=== PATIENT | male | born 1945 | race Caucasian/White ===

== ENCOUNTER 2017-02-23 21:07 | Emergency (ER) | payer OTHER, MEDICAID ==
[~2017-02-23] VITALS: Ht 160 cm; Wt 89.8 kg
[2017-02-23 21:10] VITALS: BP 154/103
[2017-02-23] MEDS ORDERED: APIX5TAB PO (21:41)
[2017-02-23] MEDS ORDERED: PRON INH (21:41)
[2017-02-23] MEDS ORDERED: BEN50 PO (21:41)
[2017-02-23] MEDS ORDERED: IBUP-1842 PO (21:41)
[2017-02-23] MEDS ORDERED: LEVO0.124 PO (21:41)
[2017-02-23] MEDS ORDERED: [UNRECOGNIZED DRUG - CODE] PO ×2 (21:41→21:55)
[2017-02-23] MEDS ORDERED: MULT15LI1 GT (21:41)
[2017-02-23] MEDS ORDERED: DILT-135 PO (21:41)
[2017-02-23] MEDS ORDERED: ATRN INH (21:41)
[2017-02-23] MEDS ORDERED: [UNRECOGNIZED DRUG - CODE] PO (21:41)
[2017-02-23] MEDS ORDERED: PUL.5N INH (21:41)
--- NOTE | 2017-02-23 21:43 | NUR ---
PT TO ER BED 12 BY ARLETH
--- NOTE | 2017-02-23 21:54 | NUR ---
71Y M BIBA FROM [facility] C/O BILAT WHEEZING X 1 DAY. EMS STATES HE IS NORMALLY ON O2 AT FACILITY 2L NC. PT HAS COLOSTOMY. EMS DELIVERED 1 ROUND OF ALBUTEROL NEBULIZER AND 1 OF ATROVENT ENROUT. PT AAOX4. AMBULATES WITH WALKER AT FACILITY.
[2017-02-23] MEDS ORDERED: ALBU0.0912 IH (21:55)
[2017-02-23] MEDS ORDERED: [UNRECOGNIZED DRUG - CODE] PO (21:55)
--- NOTE | 2017-02-23 22:07 | NUR ---
O2 SAT ON ROOM AIR 91-94, PT HAS HX OF ASTHMA AND COPD, BREATHING IS EVEN AND UNLABORED.
[2017-02-23] MEDS ORDERED: cefTRIAXone 1,000 MG in LIDOCAINE 1% ***ER ONLY *** 2.1 ML IM ONE (22:50)
[2017-02-23] MEDS ORDERED: cefTRIAXone 1,000 MG VIAL ONE (23:16)
--- NOTE | 2017-02-23 23:34 | NUR ---
Patient discharged with v/s stable BY ER MD DR PAGE. Written and verbal after care instructions given and explained BY DR PAGE. Patient alert, oriented and verbalized understanding of instructions. WHEELCHAIR with by caregiver. All questions addressed prior to discharge BY DR PAGE. ID band removed. Patient advised to follow up with PMD. Rx of ALBUTEROL INHALER PHENERGAN DM AND AUGMENTIN 875MG given. Patient educated on indication of medication including possible reaction and side effects. Opportunity to ask questions provided and answered DR PAGE.
[2017-02-23 23:35] VITALS: BP 147/91
== END 2017-02-23 23:32 | disposition home or self-care (01) ==
LOC: MED 21:07
DX: J20.9 Acute bronchitis, unspecified (principal); E03.9 Hypothyroidism, unspecified; E78.00 Pure hypercholesterolemia, unspecified
CPT/HCPCS: 71045; 81002; 96372; 99283; J0696; Q0092

== ENCOUNTER 2017-03-10 18:33 | Inpatient (IN) | payer OTHER, MEDICAID ==
[~2017-03-10] VITALS: Ht 167.6 cm; Wt 66.2 kg
[~2017-03-10 18:33] MED LIST: ALBU0.0912 IH; APIX5TAB PO; ATRN INH; BEN50 PO; DILT-135 PO; IBUP-1842 PO; LEVO0.124 PO; MULT15LI1 GT; PRON INH; PUL.5N INH; [UNRECOGNIZED DRUG - CODE] PO; [UNRECOGNIZED DRUG - CODE] PO; [UNRECOGNIZED DRUG - CODE] PO
[2017-03-10 18:40] VITALS: BP 121/70
[2017-03-10] MEDS ORDERED: ALBUTEROL SULFATE/IPRATROPIU 3 ML SOL IH ONE ×3 (18:40→19:40)
--- NOTE | 2017-03-10 19:35 | NUR ---
PT TAKEN TO OVERFLOW WHEELCHAIR
--- NOTE | 2017-03-10 19:39 | NUR ---
Dr. Dolan evaluating patient
[2017-03-10] MEDS ORDERED: methylPREDNISolone SS 125 MG/2 ML VIAL IVP ONE (19:40)
--- NOTE | 2017-03-10 19:44 | NUR ---
LAB AT BEDSIDE
--- NOTE | 2017-03-10 20:01 | NUR ---
PT MOVED TO BED 3
[2017-03-10 20:04] LABS: HEMATOCRIT 37.3 % (36-52)
[2017-03-10 20:08] LABS: HEMOGLOBIN 12.4 g/dL (12.0-18.0); MEAN CORPUSCULAR HEMOGLOBIN 28 pg (27-31); MEAN CORPUSCULAR HGB CONC 33 g/dL (33-37); MEAN CORPUSCULAR VOLUME 86 fL (80-94); PLATELET COUNT (AUTO) 451 K/uL (140-450); RED BLOOD CELL COUNT(AUTO) 4.35 MIL/uL (4.20-6.10); RED CELL DISTRIBUTION WIDTH 15.1 % (11.6-13.7); WHITE BLOOD COUNT (AUTO) 3.1 K/uL (4.8-10.8)
[2017-03-10] MEDS ORDERED: methylPREDNISolone SS 125 MG/2 ML VIAL ONE (20:08)
--- NOTE | 2017-03-10 20:13 | NUR ---
71 Y/O M [facility]C/O SOB/RESP DISTRESS. AWAKE AND ALERT ON ARRIVAL.ER MD MADE AWARE.
[2017-03-10 20:18] LABS: ANION GAP 12.5 (8-16); CARBON DIOXIDE 29.4 mmol/L (21-32); CREATININE 0.9 mg/dL (0.7-1.3); POTASSIUM 3.9 mmol/L (3.5-5.1)
[2017-03-10 20:26] LABS: TOTAL BILIRUBIN 0.5 mg/dL (0.0-1.0)
[2017-03-10 20:27] LABS: PROTHROMBIN TIME 11.5 secs (10.8-13.4)
[2017-03-10 20:31] LABS: EOSINOPHILS % (MANUAL) 2 % (0-4); LYMPHOCYTES % (MANUAL) 26 % (20-46); METAMYELOCYTES % 1 % (0-0); MONOCYTES % (MANUAL) 19 % (5-12); PROMYELOCYTES % 1 % (0-0)
[2017-03-10 20:36] LABS: APPEARANCE,URINE HAZY (CLEAR); BILIRUBIN,URINE NEGATIVE (NEGATIVE); BLOOD, URINE TRACE-I (NEGATIVE); COLOR,URINE YELLOW (YELLOW); LEUKOCYTE ESTERASE ,URINE TRACE (NEGATIVE); NITRITE, URINE NEGATIVE (NEGATIVE); PH,URINE 5.5 (5.0-9.0); UGLUCOSE NEGATIVE (NEGATIVE)
[2017-03-10 20:46] LABS: RBC,URINE 0-5 (RARE) /HPF (0-5)
--- NOTE | 2017-03-10 20:59 | NUR ---
PT RESTING IN BED, TACHY, PT DENIES ANY PAIN. ER MD MADE AWARE.
--- NOTE | 2017-03-10 21:03 | NUR ---
PER ER PT OK TO HAVE FOOD. FOOD TRADE PROVIDE TO PT AT BEDSIDE.
[2017-03-10] MEDS ORDERED: DILTIAZEM 25 MG/5 ML VIAL IVP ONE ×4 (21:05→22:25)
[2017-03-10] MEDS ORDERED: NACL 0.9% 1,000 ML IV ONE (21:50)
[2017-03-10] MEDS ORDERED: DILTIAZEM 125 MG in DEXTROSE 5% 100 ML IV ONE (21:50)
[2017-03-10] MEDS ORDERED: DILTIAZEM 125 MG/25 ML VIAL IV ONE (22:00)
--- NOTE | 2017-03-10 22:19 | NUR ---
CARDIZEM 20MG IVP GIVEN-NADR. VS- BP 128/67, 126, 19, SAT 95% ON 2L N/C PT STABLE AT THIS TIME.
[2017-03-10] MEDS ORDERED: ACETAMINOPHEN 325 MG TAB PO PRN (23:15)
[2017-03-10] MEDS ORDERED: ONDANSETRON 4 MG/2 ML VIAL IVP PRN (23:15)
[2017-03-10] MEDS ORDERED: HYDROcodone/APAP 7.5/325 MG 1 TAB PO PRN (23:15)
[2017-03-10] MEDS ORDERED: LEVOFLOXACIN 750 MG/D5W PREMIX 150 ML IV SCH (23:20)
[2017-03-10] MEDS ORDERED: ALBUTEROL SULFATE/IPRATROPIU 3 ML SOL IH PRN (23:20)
--- NOTE | 2017-03-10 23:29 | NUR ---
PT TRANSFERED TO FLOOR VIA GURNEY, ACCOMPANIED BY RN AND EMT. NO S/S OF DISTRESS NOTED DURING TRANSFER.
--- NOTE | 2017-03-10 23:30 | NUR ---
Admitted from ED, with chief complaint of SHORTNESS OF DISTRESS, 71 y/o ,Male, Awake, Alert and Oriented, Cooperative. Initial assessment done. Pt's sacral/buttock picture taken. Vital signs checked. Plan of care discussed. Pt denies any pain. Pt oriented to call light, bed, phone,television, bathroom, smoking policy, visiting hours, procedures, ID bracelet on. Belongings list checked. Mrsa swab collected.
--- NOTE | 2017-03-10 23:35 | NUR ---
REPORT GIVEN TO KATHERIN EVANS AT BEDSIDE.
[2017-03-10 23:50] VITALS: BP 119/63
[2017-03-10] MEDS ORDERED: APIX5TAB PO (23:53)
[2017-03-10 23:56] LABS: CHOL/HDL RATIO 4.3 (1-4.5); FREE T4 (FREE THYROXINE) 1.26 ng/dL (0.76-1.46); MAGNESIUM 1.7 mg/dL (1.8-2.4); PHOSPHORUS 3.5 mg/dL (2.5-4.9); THYROID STIMULATING HORMONE 1.75 uIU/mL (0.34-3.74)
[2017-03-11] MEDS ORDERED: FURO-570 PO
[2017-03-11 00:33] LABS: BARBITURATE, URINE NEG. ng/ml (NEG <=200); BENZODIAZEPINE, URINE NEG. ng/mL (NEG <=200); CANNABINOID, URINE NEG. ng/mL (NEG <=50); COCAINE, URINE NEG. ng/mL (NEG <=300); OPIATE, URINE NEG. ng/mL (NEG <=2000); PHENCYCLIDINE SCREEN,URINE NEG. ng/mL (NEG <=25)
[2017-03-11] MEDS ORDERED: LEVOFLOXACIN 750 MG/D5W PREMIX 150 ML IV ONE ×2 (00:50→20:24)
[2017-03-11] MEDS ORDERED: CLINDAMYCIN 600 MG/4 ML VIAL ONE ×2 (00:56→04:17)
[2017-03-11] MEDS: NACL 0.9% 1,000 ML IV SCH ×2 (01:02→19:11)
[2017-03-11] MEDS: CLINDAMYCIN 600 MG in DEXTROSE 5% 50 ML IV SCH ×5 (01:03→23:42)
[2017-03-11] MEDS ORDERED: MAG SULF 2000 MG/WATER PREMIX 50 ML IV ONE ×2 (01:15→03:38)
--- NOTE | 2017-03-11 02:32 | NUR ---
SPOKE TO DR FARIAS REGARDING PT'S MG LEVEL. SHE SAID SHE'LL PUT AN ORDER FOR MG RIDER.
[2017-03-11] MEDS ORDERED: PNEUMOCOCCAL VACCINE 23 MCG/0.5 ML VIAL IMVAC SCH (02:45)
[2017-03-11 04:00] VITALS: BP 105/75
--- NOTE | 2017-03-11 04:30 | NUR ---
SEEN PT AWAKE. VITAL SIGNS CHECKED. PT DENIES ANY PAIN. URINAL EMPTIED. SAFETY ENSURED.
--- NOTE | 2017-03-11 05:45 | NUR ---
SPOKE TO DR FARIAS REGARDING ORDER TO COLLECT INFLUENZA A&B THAT NEEDS TO BE CHANGED.
[2017-03-11] MEDS ORDERED: methylPREDNISolone SS 125 MG/2 ML VIAL ONE ×3 (05:57→20:26)
[2017-03-11] MEDS: methylPREDNISolone SS 125 MG/2 ML VIAL IVP SCH ×3 (06:00→20:39)
[2017-03-11] MEDS ORDERED: LEVOTHYROXINE 0.075 MG TAB ONE (06:03)
[2017-03-11] MEDS: LEVOTHYROXINE 0.075 MG TAB PO SCH (06:13)
--- NOTE | 2017-03-11 06:20 | NUR ---
INFLUENZA A&B COLLECTED PER MD ORDER. CALL LIGHT W/IN REACH.
[2017-03-11 06:56] LABS: HEMATOCRIT 33.1 % (36-52); HEMOGLOBIN 10.9 g/dL (12.0-18.0); MEAN CORPUSCULAR HEMOGLOBIN 29 pg (27-31); MEAN CORPUSCULAR HGB CONC 33 g/dL (33-37); MEAN CORPUSCULAR VOLUME 87 fL (80-94); PLATELET COUNT (AUTO) 363 K/uL (140-450)
[2017-03-11 07:01] LABS: ANION GAP 11.6 (8-16); CARBON DIOXIDE 27.9 mmol/L (21-32); CREATININE 0.8 mg/dL (0.7-1.3); POTASSIUM 4.5 mmol/L (3.5-5.1)
[2017-03-11] MEDS ORDERED: ALBUTEROL SULFATE/IPRATROPIU 3 ML SOL IH ONE ×3 (07:06→19:52)
[2017-03-11] MEDS: BUDESONIDE 0.5 MG/2 ML NEBU INH SCH ×2 (07:12→20:04)
[2017-03-11] MEDS: ALBUTEROL SULFATE/IPRATROPIU 3 ML SOL IH SCH ×3 (07:12→20:04)
[2017-03-11] MEDS ORDERED: BUDESONIDE 0.5 MG/2 ML NEBU INH ONE ×2 (07:15→19:58)
--- NOTE | 2017-03-11 07:25 | NUR ---
RECEIVED REPORT FROM CUTTER OPERATOR RN. PATIENT IS AAOX4, RESPIRATORY EFFORT EVEN AND UNLABORED. CURRENTLY RECEIVING BREATHING TREATMENT. NO SIGNS AND SYMPTOMS OF ACUTE DISTRESS NOTED AT THIS TIME. HAS NORMAL SALINE INFUSING AT 50 ML/HR TO RIGHT FOREARM 20G. SITE IS CLEAN, DRY, PATENT AND INTACT. DISCUSSED PLAN OF CARE WITH PATIENT AND HE VERBALIZED UNDERSTANDING. BED IN LOWEST POSITION, SIDE RAILS UP X2, CALL LIGHT PLACED WITHIN REACH. WILL CONTINUE TO MONITOR.
[2017-03-11 07:27] LABS: MAGNESIUM 2.6 mg/dL (1.8-2.4); PHOSPHORUS 3.3 mg/dL (2.5-4.9)
[2017-03-11 08:00] VITALS: BP 122/72
--- NOTE | 2017-03-11 08:47 | NUR ---
PATIENT HAS BEEN SCREENED AND CATEGORIZED MODERATE NUTRITION RISK. PATIENT WILL BE SEEN WITHIN 3-5 DAYS OF ADMISSION. 03/12/17-03/14/[address]
[2017-03-11] MEDS ORDERED: DILTIAZEM 120 MG CAPER PO SCH ×3 (09:00→21:00)
[2017-03-11] MEDS: NYSTATIN CRE 100 MU/GM 15 GM TUBE TP SCH ×2 (09:00→20:40)
[2017-03-11] MEDS: Z-GUARD PASTE TP SCH (09:00)
[2017-03-11] MEDS ORDERED: DOCUSATE SODIUM 100 MG GELCAP PO ONE ×2 (09:13→20:25)
[2017-03-11] MEDS ORDERED: DILTIAZEM 120 MG CAPER PO ONE ×2 (09:14→13:49)
[2017-03-11] MEDS ORDERED: ATORVASTATIN 20 MG TAB ONE (09:14)
[2017-03-11] MEDS ORDERED: LACTOBACILLUS RHAMNOSUS GG 1 EACH CAP ONE (09:14)
[2017-03-11] MEDS ORDERED: FUROSEMIDE 20 MG TAB ONE (09:14)
[2017-03-11] MEDS: DOCUSATE SODIUM 100 MG GELCAP PO SCH ×2 (09:18→20:39)
[2017-03-11] MEDS: ATORVASTATIN 20 MG TAB PO SCH (09:18)
[2017-03-11] MEDS: LACTOBACILLUS RHAMNOSUS GG 1 EACH CAP PO SCH (09:18)
[2017-03-11] MEDS ORDERED: FUROSEMIDE 40 MG TAB ONE (09:23)
[2017-03-11] MEDS: APIXABAN 2.5 MG TAB PO SCH ×2 (09:24→20:44)
[2017-03-11] MEDS: FUROSEMIDE 40 MG TAB PO SCH (09:24)
[2017-03-11 10:13] LABS: WHITE BLOOD COUNT (AUTO) 1.4 K/uL (4.8-10.8)
[2017-03-11 10:20] LABS: LYMPHOCYTES % (MANUAL) 23 % (20-46); MONOCYTES % (MANUAL) 7 % (5-12)
[2017-03-11 11:10] LABS: MAGNESIUM 2.6 mg/dL (1.8-2.4); PHOSPHORUS 3.4 mg/dL (2.5-4.9)
[2017-03-11 12:00] VITALS: BP 101/66
[2017-03-11 16:00] VITALS: BP 97/49
--- NOTE | 2017-03-11 19:20 | NUR ---
ENDORSED PATIENT TO FIREPOT OPERATOR AND TENDER RN FOR CONTINUITY OF CARE. PATIENT IN STABLE CONDITION.
--- NOTE | 2017-03-11 19:30 | NUR ---
RECEIVED REPORT FROM AM NURSE. PT RESTING IN BED, AOX4, REPORTS GENERALIZED WEAKNESS, ABLE TO VERBALIZE NEEDS. FRONT DESK MANAGER IN PLACE, PT DENIES CHEST PAIN, SOB OR S/S OF ACUTE DISTRESS. SPO2 98% ON O2 2L NC, RR 20 EVEN AND UNLABORED. COLOSTOMY IN PLACE, SOFT BROWN STOOL NOTED. GLANS OF PENIS HAS REDNESS AND SWELLING NOTED. SCDs IN PLACE. IV ACCESS ASYMPTOMATIC, PATENT AND INTACT. IVF INFUSING WELL. DISCUSSED AND REVIEWED PLAN OF CARE WITH PT, PT VERBALIZED UNDERSTANDING, WILL CONTINUE WITH CONSTANT REINFORCEMENT. ALL NEEDS MET. SAFETY MEASURES ENSURED. CALL LIGHT WITHIN REACH.
[2017-03-11 20:00] VITALS: BP 101/69
[2017-03-11] MEDS: LEVOFLOXACIN 750 MG/D5W PREMIX 150 ML IV SCH (20:39)
--- NOTE | 2017-03-11 20:45 | NUR ---
ADMINISTERED DUE MEDS WITH EDUCATION. PT VERBALIZED UNDERSTANDING, TOLERATED MEDS WELL. PT ASSISTED TO TURN AND REPOSITION SELF BY CNAs, OFFLOADED PRESSURE AREAS. ALL NEEDS MET. IVPB INFUSING WELL. SAFETY MEASURES ENSURED. CALL LIGHT WITHIN REACH.
[2017-03-12] VITALS: BP 102/66
--- NOTE | 2017-03-12 | NUR ---
ADMINISTERED DUE MED CLEOCIN IVPB WITH EDUCATION. PT VERBALIZED UNDERSTANDING. SACROCOCCYX/BUTTOCKS CLEANSED WITH NS AND GAUZE, PAT DRY, Z-GUARD APPLIED. ASSISTED PT TO TURN AND REPOSITION SELF BY CNAs, OFFLOADED PRESSURE AREAS. ALL NEEDS MET. IVPB INFUSING WELL. SAFETY MEASURES ENSURED. CALL LIGHT WITHIN REACH.
[2017-03-12] MEDS ORDERED: methylPREDNISolone SS 40 MG/ML VIAL ONE ×2 (03:29→12:42)
[2017-03-12] MEDS ORDERED: LEVOTHYROXINE 0.1 MG TAB ONE (03:39)
[2017-03-12] MEDS ORDERED: LEVOTHYROXINE 0.025 MG TAB ONE (03:39)
[2017-03-12 04:00] VITALS: BP 105/69
[2017-03-12] MEDS: methylPREDNISolone SS 40 MG/ML VIAL IVP SCH ×3 (04:00→20:17)
--- NOTE | 2017-03-12 04:00 | NUR ---
ADMINISTERED DUE MED WITH EDUCATION. PT VERBALIZED UNDERSTANDING. ASSISTED PT TO TURN AND REPOSITION SELF, OFFLOADED PRESSURE AREAS. ALL NEEDS MET. SAFETY MEASURES ENSURED. CALL LIGHT WITHIN REACH.
[2017-03-12] MEDS: LEVOTHYROXINE 0.075 MG TAB PO SCH (05:31)
[2017-03-12] MEDS: CLINDAMYCIN 600 MG in DEXTROSE 5% 50 ML IV SCH ×3 (05:31→18:35)
[2017-03-12 06:48] LABS: HEMATOCRIT 31.3 % (36-52); HEMOGLOBIN 10.4 g/dL (12.0-18.0); MEAN CORPUSCULAR HEMOGLOBIN 29 pg (27-31); MEAN CORPUSCULAR HGB CONC 33 g/dL (33-37); MEAN CORPUSCULAR VOLUME 86 fL (80-94); PLATELET COUNT (AUTO) 349 K/uL (140-450); RED BLOOD CELL COUNT(AUTO) 3.63 MIL/uL (4.20-6.10); RED CELL DISTRIBUTION WIDTH 15.1 % (11.6-13.7); WHITE BLOOD COUNT (AUTO) 2.1 K/uL (4.8-10.8)
[2017-03-12 06:58] LABS: ANION GAP 9.1 (8-16); CARBON DIOXIDE 30.7 mmol/L (21-32); CREATININE 1.1 mg/dL (0.7-1.3); POTASSIUM 3.8 mmol/L (3.5-5.1)
[2017-03-12] MEDS ORDERED: ALBUTEROL SULFATE/IPRATROPIU 3 ML SOL IH ONE ×2 (06:58→13:18)
[2017-03-12] MEDS ORDERED: BUDESONIDE 0.5 MG/2 ML NEBU INH ONE (06:59)
[2017-03-12] MEDS: BUDESONIDE 0.5 MG/2 ML NEBU INH SCH ×2 (07:10→19:55)
[2017-03-12] MEDS: ALBUTEROL SULFATE/IPRATROPIU 3 ML SOL IH SCH ×3 (07:11→19:55)
--- NOTE | 2017-03-12 07:17 | NUR ---
ENDORSED PLAN OF CARE TO AM NURSE. CONDITION STABLE.
--- NOTE | 2017-03-12 07:20 | NUR ---
REPORT RECEIVED FROM SUPERVISOR RECORD PRESS, PT SLEEPING QUIETLY IN NAD, RESP EVEN UNLABORED ON ROOM AIR, SKIN WARM DRY COLOR WNL, PT AROUSES EASILY BY VOICE, DENIES PAIN OR DISCOMFORT, PLAN OF CARE REVIEWED, IVF INFUSING WELL, SITE WNL, COLOSTOMY BAG IN PLACE, EMPTIED SOFT BROWN STOOL, CALL RODNEY WITHINR EACH, SIDE RAILS UPX2, BED LOCKED IN LOW POSITION, WILL CONTINUE TO MONITOR.
[2017-03-12 08:00] VITALS: BP 117/73
[2017-03-12] MEDS ORDERED: DOCUSATE SODIUM 100 MG GELCAP PO ONE (08:42)
[2017-03-12] MEDS ORDERED: DILTIAZEM 120 MG CAPER PO ONE (08:43)
[2017-03-12] MEDS ORDERED: ATORVASTATIN 20 MG TAB ONE (08:43)
[2017-03-12] MEDS ORDERED: LACTOBACILLUS RHAMNOSUS GG 1 EACH CAP ONE (08:43)
[2017-03-12 08:46] LABS: LYMPHOCYTES % (MANUAL) 21 % (20-46); MONOCYTES % (MANUAL) 16 % (5-12)
[2017-03-12] MEDS: LACTOBACILLUS RHAMNOSUS GG 1 EACH CAP PO SCH (08:50)
[2017-03-12] MEDS: DILTIAZEM 120 MG CAPER PO SCH ×2 (08:51→20:24)
[2017-03-12] MEDS: ATORVASTATIN 20 MG TAB PO SCH (08:51)
[2017-03-12] MEDS: DOCUSATE SODIUM 100 MG GELCAP PO SCH ×2 (08:52→20:17)
[2017-03-12] MEDS ORDERED: FUROSEMIDE 40 MG TAB ONE (08:55)
[2017-03-12] MEDS: FUROSEMIDE 40 MG TAB PO SCH (08:56)
[2017-03-12] MEDS: Z-GUARD PASTE TP SCH (08:57)
[2017-03-12] MEDS: NYSTATIN CRE 100 MU/GM 15 GM TUBE TP SCH ×2 (08:57→20:24)
[2017-03-12] MEDS: APIXABAN 2.5 MG TAB PO SCH ×2 (08:58→20:24)
--- NOTE | 2017-03-12 09:45 | NUR ---
BED BATH GIVEN WITH PUPPET DEVELOPER, PERICARE DONE, LINEN CHANGED, PT LORAINE WELL, PT ON ROOM AIR, TOLERATING WELL, POSITION CHANGED WILL CONTINUE TO MONITOR.
--- NOTE | 2017-03-12 10:00 | NUR ---
WOUND EVALUATION NOTE: REASON FOR WOUND EVALUATION: BUTTOCKS REDNESS COMPLETE SKIN ASSESSMENT DONE ON THIS 71 Y/O MALE PATIENT ADMITTED TO [facility], WITH INITIAL DIAGNOSIS OF SOB. PAST MEDICAL HISTORY INCLUDE COPD, CHF, HLD, HTN AND PA. ALL ABOVE INFORMATION WAS OBTAINED FROM THE ADMISSION H&P. LABS ARE WBC 2.1, H/H 10.4/31.3, GLUCOSE 115, ALBUMIN 3.2, PT/INR 11.5/1.1 AND PTT 35.4. PATIENT IS AWAKE, ORIENTED TO PERSON, PLACE AND TIME. SKIN WARM TO TOUCH WNL, BLE DRY FLAKY SKIN. TOENAILS ARE SLIGHTLY THICKENED, NO EDEMA, BLE WITH NO HAIR GROWTH AND NORMAL PEDAL PULSES. CAPILLARY REFILLED <2 SEC. PLAN OF CARE AND PRESSURE PREVENTIVE MEASURES DISCUSSED WITH PT AND PRIMARY RN. PT. VERBALIZE UNDERSTANDING. INTEGUMENTARY: BLE DRY FLAKY SKIN. RLE OLD HEALED SURGICAL SCAR RUQ ABDOMEN COLOSTOMY BAG FUNCTIONING WITH SOFT STOOL OUTPUT NOTICE LEFT AND RIGHT BUTTOCKS INCONTINENT ASSOCIATE DERMATITIS (IAD), SKIN INTACT SCROTUM AND TIP OF PENIS IAD RECOMMENDATIONS: -APPLY BODY LOTION TO BLE DRY SKIN -CLEANSE SCROTUM AND TIP OF PENIS WITH SOAP AND WATER , PAT DRY, APPLY NYSTATIN CR. BID AND PRN IF SOILING -CLEANSE LEFT AND RIGHT BUTTOCKS WITH SOAP AND WATER, PAT DRY , APPLY Z-GUARD BID WC AND LEAVE OPEN TO AIR -TURN AND REPOSITION PATIENT Q2H -ASSESS AND MONITOR SKIN CONDITION DURING POSITION CHANGE, PLEASE PAY ATTENTION TO BUTTOCKS -OFFLOAD BILATERAL HEELS BY PLACING PILLOWS UNDER CALVES AT ALL TIMES, UNLESS OTHERWISE CONTRAINDICATED -KEEP SKIN CLEAN AND DRY AT ALL TIMES. RECOMMENDATIONS DISCUSSED WITH PRIMARY RN WILL FOLLOW UP Q7-10 DAYS AND PRN, PLEASE CONTACT WOUND CARE NURSE IF ANY CHANGE OF SKIN CONDITION NOTICE.
[2017-03-12 12:00] VITALS: BP 115/68
[2017-03-12] MEDS ORDERED: ALBUTEROL 0.083% 2.5 MG/3 ML NEBU INH ONE (13:09)
--- NOTE | 2017-03-12 14:30 | NUR ---
URINE COLLECTED, SENT TO LAB.
[2017-03-12 16:00] VITALS: BP 98/64
--- NOTE | 2017-03-12 16:05 | NUR ---
PT RESTING QUIETLY IN NAD, RESP EVEN UNLABORED, SKIN WARM DRY COLOR WNL, PT DENIES ANY IMMEDIATE NEEDS, WILL CONTINUE TO MONITOR.
--- NOTE | 2017-03-12 18:54 | NUR ---
PATEINT RESTING QUIETLY WATCHING TV, CLINDAMYCIN ADMINISTERED, TOLERATED WELL ,NO ADVERSED REACTIONS, IV SITE PATENT AND INTACT WNL, WILL CONT TO MONITOR
[2017-03-12] MEDS: NACL 0.9% 1,000 ML IV SCH (19:11)
--- NOTE | 2017-03-12 19:24 | NUR ---
REPORT GIVEN TO VISUAL DISPLAY MANAGER NURSE, PT IN STABLE CONDITION.
--- NOTE | 2017-03-12 19:25 | NUR ---
RECEIVED HANDOFF REPORT FROM AM RN. PATIENT A&OX4. PATIENT IV PATENT AND INTACT. PATIENT COLOSTOMY PATENT AND INTACT. PATIENT IS 90% ON ROOM AIR. APPLIED O2 AT 96%. PATIENT DENIES PAIN. NO SIGNS OR SYMPTOMS OF ACUTE DISTRESS NOTED. SAFETY MEASURES ENSURED. CALL LIGHT WITHIN REACH. WILL CONTINUE TO MONITOR.
[2017-03-12 20:00] VITALS: BP 108/64
[2017-03-12] MEDS: LEVOFLOXACIN 750 MG/D5W PREMIX 150 ML IV SCH (20:17)
--- NOTE | 2017-03-12 20:20 | NUR ---
PM MEDS GIVEN WITH EDUCATION. PATIENT VERBALIZED UNDERSTANDING. REINFORCEMENT NEEDED. NO SIGNS OR SYMPTOMS OF ACUTE DISTRESS NOTED. CALL LIGHT WITHIN REACH. SAFETY MEASURES ENSURED. WILL CONTINUE TO MONITOR.
[2017-03-13] VITALS: BP 111/71
--- NOTE | 2017-03-13 00:13 | NUR ---
PATIENT RESTING IN BED. PATIENT DENIES PAIN. NO SIGNS OR SYMPTOMS OF ACUTE DISTRESS NOTED. SAFETY MEASURES ENSURED. CALL LIGHT WITHIN REACH. WILL CONTINUE TO MONITOR.
[2017-03-13] MEDS: CLINDAMYCIN 600 MG in DEXTROSE 5% 50 ML IV SCH ×4 (00:55→18:18)
[2017-03-13 04:00] VITALS: BP 117/75
[2017-03-13] MEDS: LEVOTHYROXINE 0.075 MG TAB PO SCH (06:07)
[2017-03-13 06:56] LABS: WHITE BLOOD COUNT (AUTO) 4.1 K/uL (4.8-10.8)
[2017-03-13 06:57] LABS: HEMATOCRIT 31.3 % (36-52); HEMOGLOBIN 10.4 g/dL (12.0-18.0); MEAN CORPUSCULAR HEMOGLOBIN 29 pg (27-31); MEAN CORPUSCULAR HGB CONC 33 g/dL (33-37); MEAN CORPUSCULAR VOLUME 86 fL (80-94); PLATELET COUNT (AUTO) 322 K/uL (140-450); RED BLOOD CELL COUNT(AUTO) 3.65 MIL/uL (4.20-6.10); RED CELL DISTRIBUTION WIDTH 15.4 % (11.6-13.7)
--- NOTE | 2017-03-13 07:20 | NUR ---
RECEIVED PATIENT SLEEPING IN BED. PATIENT IS AROUSABLE AND A&OX3. PATIENT HAS BILATERAL WHEEZING AT THIS TIME. WILL NOTIFY RT OF THESE FINDINGS. PATIENT DOES NOT SHOW SIGNS OF RESPIRATORY DEPRESSION AT THIS TIME. PATIENT HAS COLOSTOMY NOTED ON RIGHT LOWER QUADRANT. BED LOWERED AND CALL LIGHT WITHIN REACH. SIGNS FOR REVERSE ISOLATION AND NEUTROPENIC PRECAUTIONS IN PLACE. WILL CONTINUE TO MONITOR PATIENT.
[2017-03-13 07:25] LABS: ANION GAP 8.1 (8-16); CARBON DIOXIDE 34.3 mmol/L (21-32); POTASSIUM 3.4 mmol/L (3.5-5.1)
--- NOTE | 2017-03-13 07:26 | NUR ---
ENDORSED PLAN OF CARE TO AM RN. PATIENT IN STABLE CONDITION.
[2017-03-13] MEDS: ALBUTEROL SULFATE/IPRATROPIU 3 ML SOL IH SCH ×3 (07:53→19:30)
[2017-03-13] MEDS: BUDESONIDE 0.5 MG/2 ML NEBU INH SCH ×2 (07:53→19:30)
[2017-03-13 08:00] VITALS: BP 127/72
[2017-03-13] MEDS: DOCUSATE SODIUM 100 MG GELCAP PO SCH ×2 (08:24→21:38)
[2017-03-13] MEDS: LACTOBACILLUS RHAMNOSUS GG 1 EACH CAP PO SCH (08:24)
[2017-03-13] MEDS: DILTIAZEM 120 MG CAPER PO SCH ×2 (08:24→21:38)
[2017-03-13] MEDS: ATORVASTATIN 20 MG TAB PO SCH (08:25)
[2017-03-13] MEDS: FUROSEMIDE 40 MG TAB PO SCH (08:25)
[2017-03-13 09:31] LABS: LYMPHOCYTES % (MANUAL) 15 % (20-46); MONOCYTES % (MANUAL) 2 % (5-12)
[2017-03-13] MEDS: NYSTATIN CRE 100 MU/GM 15 GM TUBE TP SCH ×2 (10:06→21:53)
[2017-03-13] MEDS: Z-GUARD PASTE TP SCH (10:07)
[2017-03-13] MEDS: APIXABAN 2.5 MG TAB PO SCH ×2 (10:09→21:46)
--- NOTE | 2017-03-13 10:20 | NUR ---
Attempted contact to campaign worker Drea Philip at No response. I left her a Voicemail MGS to call back.
--- NOTE | 2017-03-13 10:31 | NUR ---
PATIENT POTASSIUM IS AT 3.4. DR IS AWARE. TO PUT IN ORDERS FOR POTASSIUM.
--- NOTE | 2017-03-13 10:37 | NUR ---
DR FENG SAW PATIENT. AWARE AND UPDATED WITH PATIENTS CONDITION.
--- NOTE | 2017-03-13 11:08 | NUR ---
CLEANSED PATIENT STOMA SITE FOR HIS COLOSTOMY BAG. REPLACED THE PATIENT'S COLOSTOMY BAG AND PATIENT'S GOWN. PATIENT TOLERATED WELL.
[2017-03-13 11:48] VITALS: BP 125/69
[2017-03-13] MEDS ORDERED: POTASSIUM CHLORIDE 10 MEQ TABER PO SCH (12:00)
--- NOTE | 2017-03-13 14:41 | NUR ---
PATIENT IS 93% ON ROOM AIR. BILATERAL WHEEZES STILL NOTED. WILL CONTINUE TO MONITOR PATIENT.
--- NOTE | 2017-03-13 15:17 | NUR ---
03/13/2017 RD INITIAL ASSESSMENT COMPLETED PLEASE REFER TO NUTRITION ASSESSMENT UNDER CARE ACTIVITY FOR ESTIMATED NUTRITIONAL NEEDS. CONTINUE REGULAR DIET TOLERATED PT TO RECEIVE HEALTH SHAKE BID FOR ADDITIONAL KCALS/PRO RD TO FOLLOW-UP IN 3-5 DAYS PATIENT IS MODERATE RISK. KENZIE ANTOINE, RD
[2017-03-13 16:12] VITALS: BP 101/61
--- NOTE | 2017-03-13 17:10 | NUR ---
PATIENT IS IN BED IN HIGH HIGH FOWLERS POSITION WATCHING TELEVISION. PATIENT SHOWS NO SIGNS OF RESPIRATORY DISTRESS OR RESPIRATORY DEPRESSION. WILL CONTINUE TO MONITOR PATIENT.
--- NOTE | 2017-03-13 18:00 | NUR ---
MOVED PATIENT ROOM 111 BED A. RECONNECTED PATIENT TO IV LINE AND SET UP PATIENT'S FOOD TRAY. MOVED ALL OF PATIENT'S BELONGINGS TO NEW ROOM. PATIENT SHOWS NO SIGNS OF RESPIRATORY DISTRESS OR RESPIRATORY DEPRESSION. PATIENT IS IN STABLE CONDITION. WILL CONTINUE TO MONITOR PATIENT.
--- NOTE | 2017-03-13 19:25 | NUR ---
GAVE BEDSIDE REPORT TO NIGHTSHIFT NURSE AT BEDSIDE. UPDATED NIGHTSHIFT NURSE ON PATIENT'S CONDITION. PATIENT IS IN STABLE CONDITION.
--- NOTE | 2017-03-13 19:26 | NUR ---
RECEIVED BEDSIDE REPORT FROM DAY SHIFT NURSE DICKSON RN, PT STABLE, NO DISTRESS NOTED, IV TP R FA 20G RUNNING NS @ 5ML/HR, INFUSING WELL, RT BY BEDSIDE DOING BREATHING TREATMENT, NO SOB, INITIAL ASSESSMENT DONE, ALL SAFETY PRECAUTION MET, WILL CONTINUE TO MONITOR.
[2017-03-13] MEDS: NACL 0.9% 1,000 ML IV SCH (19:30)
--- NOTE | 2017-03-13 19:30 | NUR ---
AWAKE AND ALERT RESPONSIVE SATURATION 89% ON ROOM AIR POST HHN THERAPY PLACED ON SUPPLEMENTAL OXYGEN AT 2LPM VIA DIXON MEDINA/RN NOTIFIED
[2017-03-13 20:00] VITALS: BP 102/63
[2017-03-13] MEDS: LEVOFLOXACIN 750 MG/D5W PREMIX 150 ML IV SCH (21:38)
--- NOTE | 2017-03-13 21:53 | NUR ---
DUE MEDICATION GIVEN, PT TOLERATED WELL, NO DISTRESS NOTED, CALL LIGHT WITHIN REACH, WILL CONTINUE TO MONITOR.
[2017-03-14] VITALS: BP 108/74
--- NOTE | 2017-03-14 00:10 | NUR ---
CHECKED ON PT, PT STABLE, NO DISTRESS NOTED, CALL LIGHT WITHIN REACH, WILL CONTINUE TO MONITOR.
[2017-03-14] MEDS: CLINDAMYCIN 600 MG in DEXTROSE 5% 50 ML IV SCH ×4 (00:47→17:22)
[2017-03-14 04:00] VITALS: BP 106/67
--- NOTE | 2017-03-14 05:33 | NUR ---
DUE MEDICATION GIVEN, PT STABLE, NO DISTRESS NOTED, CALL LIGHT WITHIN REACH, WILL CONTINUE TO MONITOR.
[2017-03-14] MEDS: LEVOTHYROXINE 0.075 MG TAB PO SCH (05:34)
[2017-03-14 07:28] LABS: HEMATOCRIT 33.1 % (36-52); HEMOGLOBIN 10.6 g/dL (12.0-18.0); MEAN CORPUSCULAR HEMOGLOBIN 28 pg (27-31); MEAN CORPUSCULAR HGB CONC 32 g/dL (33-37); MEAN CORPUSCULAR VOLUME 89 fL (80-94); PLATELET COUNT (AUTO) 359 K/uL (140-450); RED BLOOD CELL COUNT(AUTO) 3.74 MIL/uL (4.20-6.10); RED CELL DISTRIBUTION WIDTH 15.3 % (11.6-13.7)
--- NOTE | 2017-03-14 07:30 | NUR ---
ENDORSED PLAN OF CARE TO DAY SHIFT NURSE SAMI PANDEY, PT STABLE, NO DISTRESS NOTED. Addendum: 03/14/17 at 0737 by Irena Frias RN QUE BOURGEOIS RN
--- NOTE | 2017-03-14 07:31 | NUR ---
RECEIVED REPORT FROM DAMAGE PREVENTION COORDINATOR NURSE ADAM AT BEDSIDE FOR CONTINUITY OF CARE. PT IS AWAKE AND ORIENTED. INTRODUCED SELF AND UPDATED BOARD. PT IS SITTING UP IN BED PLAYING WITH CARDS. WHEEZING. NO SOB. ON O2 NC 2L. O2 SAT 96%. BS AUSCULTATED. PT DENIES PAIN. IV TO R FA 20G INFUSING NS @5ML/HR. NO SIGNS OF DISTRESS. BED IN LOW POSITION, WHEELS LOCKED, CALL LIGHT WITHIN REACH. WILL CONTINUE TO MONITOR.
[2017-03-14 07:34] LABS: CARBON DIOXIDE 36.6 mmol/L (21-32); CREATININE 0.9 mg/dL (0.7-1.3); POTASSIUM 3.6 mmol/L (3.5-5.1)
[2017-03-14] MEDS: BUDESONIDE 0.5 MG/2 ML NEBU INH SCH ×2 (07:35→19:13)
[2017-03-14] MEDS: ALBUTEROL SULFATE/IPRATROPIU 3 ML SOL IH SCH ×3 (07:38→19:14)
[2017-03-14 08:00] VITALS: BP 131/70
[2017-03-14 08:19] LABS: LYMPHOCYTES % (MANUAL) 23 % (20-46); MONOCYTES % (MANUAL) 11 % (5-12)
[2017-03-14] MEDS: DILTIAZEM 120 MG CAPER PO SCH ×2 (08:23→20:59)
[2017-03-14] MEDS: ATORVASTATIN 20 MG TAB PO SCH (08:23)
[2017-03-14] MEDS: LACTOBACILLUS RHAMNOSUS GG 1 EACH CAP PO SCH (08:23)
[2017-03-14] MEDS: FUROSEMIDE 40 MG TAB PO SCH (08:24)
[2017-03-14] MEDS: DOCUSATE SODIUM 100 MG GELCAP PO SCH ×2 (08:24→21:00)
[2017-03-14] MEDS: NYSTATIN CRE 100 MU/GM 15 GM TUBE TP SCH ×2 (08:25→21:00)
[2017-03-14] MEDS: Z-GUARD PASTE TP SCH (08:25)
[2017-03-14] MEDS: APIXABAN 2.5 MG TAB PO SCH ×2 (08:26→21:01)
--- NOTE | 2017-03-14 08:30 | NUR ---
ADMINISTERED SCHEDULED MEDS. PT HAD INCONTINENT URINE. CHANGED PADS AND CLEANED PT. APPLIED NYSTATIN TO PENILE AREA AND Z-GUARD TO SACRAL WOUND. PT TOLERATED WELL. SITTING UP IN BED WATCHING TV. NO SIGNS OF RESPIRATORY DISTRESS. HOB ELEVATED 30 DEGREES. BED IN LOW POSITION, WHEELS LOCKED, CALL LIGHT WITHIN REACH. WILL CONTINUE TO MONITOR.
[2017-03-14] MEDS: NACL 0.9% 1,000 ML IV SCH (10:12)
--- NOTE | 2017-03-14 10:22 | NUR ---
CHECKED ON PT, PT SLEEPING, NO DISTRESS NOTED, CALL LIGHT WITHIN REACH, WILL CONTINUE TO MONITOR. Addendum: 03/15/17 at 0346 by Irena Frias RN WRONG TIME
--- NOTE | 2017-03-14 10:44 | NUR ---
Social Service Note: I called [employer] [facility] and spoke with Jessica. Per Jessica, they serve [facility] and accept Medicare for home O2 referrals, requested referral to be fax to . I faxed referral. I called [facility] and spoke with Anuja ; I informed her patient will need home O2 and home health services. She verbalized understanding. She stated patient is already receiving home health services from [facility] and will inform them patient will continue to need services. She stated they can accommodate patient with home 02 at their facility. I confirmed with facility's address listed on patient's face sheet.
--- NOTE | 2017-03-14 11:30 | NUR ---
ASSISTED PT TO USE URINAL. CHANGED SOILED LINENS. EMPTIED COLOSTOMY BAG. 100ML OF SOFT BROWN STOOL NOTED. PT IS SITTING UP IN BED NOW. NO SIGNS OF DISTRESS. WILL CONTINUE TO MONITOR.
[2017-03-14 12:00] VITALS: BP 122/68
--- NOTE | 2017-03-14 14:00 | NUR ---
PT IS SITTING IN BED PLAYING WITH CARDS AND WATCHING TV. REPOSITIONED IN BED WITH HOB ELEVATED. NO SIGNS OF DISTRESS. ON O2 NC 2L. O2 SAT 98%. BED IN LOW POSITION, WHEELS LOCKED, CALL LIGHT WITHIN REACH. WILL CONTINUE TO MONITOR.
[2017-03-14 16:00] VITALS: BP 126/69
--- NOTE | 2017-03-14 17:15 | NUR ---
PT HAD INCONTINENT URINE. CLEANED PT AND APPLIED Z-GUARD TO SACRAL AREA. EMPTIED COLOSTOMY BAG. 200ML OF SOFT BROWN STOOL NOTED. CHANGED LINENS AND GOWN. REPOSITIONED PT IN BED. HOB ELEVATED 45 DEGREES. SITTING UP IN BED. NO SIGNS OF DISTRESS. EATING DINNER TRAY. CALL LIGHT WITHIN REACH. WILL CONTINUE TO MONITOR.
--- NOTE | 2017-03-14 17:22 | NUR ---
Social Service Note: Per Shelly [facility] O2 will be deliver to our hospital today and concentrator to patient's home, I informed patient's nurse Cortney of this.
--- NOTE | 2017-03-14 19:15 | NUR ---
ENDORSED PT TO SKY CAP NURSE ADAM AT BEDSIDE FOR CONTINUITY OF CARE. PT IN STABLE CONDITION.
--- NOTE | 2017-03-14 19:16 | NUR ---
RECEIVED BEDSIDE REPORT FROM DAY SHIFT NURSE BK RN, PT STABLE, NO DISTRESS NOTED IV TO R FA 20 G RUNNING NS @ 5ML/HR, INFUSING WELL, RT BY BEDSIDE, NO SOB, INITIAL ASSESSMENT DONE, ALL SAFETY PRECAUTION MET, WILL CONTINUE TO MONITOR.
--- NOTE | 2017-03-14 19:20 | NUR ---
SUCTIONED OROPHARYNX SMALL CHUCKS OF FOOD VIA ADAM FOSTER RN NOTED AND SPOKE TO DR. TIM, PATIENT ALSO REFUSED ABG
--- NOTE | 2017-03-14 19:25 | NUR ---
INFORMED DR. TIM REGARDING PT CONDITION OF SMALL CHUNKS OF FOOD FOUND DURING SUCTIONING, STATED UNDERSTANDING, WILL PUT PT ON NPO AND HAVE SWALLOW EVALUATION. WILL CONTINUE WITH DR TROTTER.
[2017-03-14 20:00] VITALS: BP 124/74
--- NOTE | 2017-03-14 20:45 | NUR ---
PORTABLE O2 DELIVERED, LEFT BY BEDSIDE WITH PT.
[2017-03-14] MEDS: LEVOFLOXACIN 750 MG/D5W PREMIX 150 ML IV SCH (21:03)
--- NOTE | 2017-03-14 21:05 | NUR ---
DUE MEDICATION GIVEN, PT TOLERATED WELL, NO DISTRESS NOTED, CALL LIGHT WITHIN REACH. WILL CONTINUE TO MONITOR.
--- NOTE | 2017-03-14 22:22 | NUR ---
CHECKED ON PT, PT SLEEPING, NO DISTRESS NOTED, CALL LIGHT WITHIN REACH, WILL CONTINUE TO MONITOR.
[2017-03-15] VITALS: BP 113/77
[2017-03-15] MEDS: CLINDAMYCIN 600 MG in DEXTROSE 5% 50 ML IV SCH ×4 (00:44→17:30)
--- NOTE | 2017-03-15 00:44 | NUR ---
DUE MEDICATION GIVEN, PT TOLERATED WELL, NO DISTRESS NOTED, CALL LIGHT SHANELLE JAQUEZ, WILL CONTINUE TO MONITOR.
--- NOTE | 2017-03-15 02:42 | NUR ---
CHECKED ON PT, PT AWAKE PLAYING WITH CARDS AND WRITING ON A PIECE OF PAPER, NO DISTRESS NOTED, CALL LIGHT WITHIN REACH, WILL CONTINUE TO MONITOR.
[2017-03-15 04:00] VITALS: BP 118/70
[2017-03-15] MEDS: LEVOTHYROXINE 0.075 MG TAB PO SCH (06:26)
--- NOTE | 2017-03-15 06:26 | NUR ---
DUE MEDICATION GIVEN, PT TOLERATED WELL, NO DISTRESS NOTED, CALL LIGHT WITHIN REACH WILL CONTINUE TO MONITOR.
--- NOTE | 2017-03-15 07:14 | NUR ---
BEDSIDE REPORT GIVEN TO DAY SHIFT NURSE BK PANDEY, ENDORSED PLAN OF CARE, PT STABLE, NO DISTRESS NOTED, CALL LIGHT WITHIN REACH, WILL CONTINUE TO MONITOR.
--- NOTE | 2017-03-15 07:15 | NUR ---
RECEIVED REPORT FROM EMPLOYMENT MANAGER NURSE ADAM AT BEDSIDE FOR CONTINUITY OF CARE. PT IS AWAKE AND ORIENTED. INTRODUCED SELF AND UPDATED BOARD. PT NPO EXCEPT MEDS. IV TO R FA 20G INFUSING NS AT 5ML/HR. ON O2 NC 2L/MIN. O2 SAT 99%. SKIN WARM AND DRY. NO SIGNS OF RESPIRATORY DISTRESS. BED IN LOW POSITION, WHEELS LOCKED, CALL LIGHT WITHIN REACH. WILL CONTINUE TO MONITOR.
[2017-03-15 07:18] LABS: BASOPHILS # (AUTO) 0.1 K/uL (0.00-0.22); BASOPHILS % (AUTO) 1.4 % (0.0-2.0); EOSINOPHILS % (AUTO) 0.2 % (0.0-4.0); HEMOGLOBIN 11.7 g/dL (12.0-18.0); LYMPHOCYTES # (AUTO) 0.7 K/uL (2.0-11.5); MEAN CORPUSCULAR HEMOGLOBIN 28 pg (27-31); MEAN CORPUSCULAR HGB CONC 33 g/dL (33-37); MEAN CORPUSCULAR VOLUME 87 fL (80-94); MONOCYTES # (AUTO) 0.7 K/uL (0.8-1.0); NEUTROPHILS # (AUTO) 3.6 K/uL (1.8-7.7); NEUTROPHILS % (AUTO) 70.4 % (42.2-75.2); PLATELET COUNT (AUTO) 366 K/uL (140-450); RED BLOOD CELL COUNT(AUTO) 4.13 MIL/uL (4.20-6.10); RED CELL DISTRIBUTION WIDTH 15.7 % (11.6-13.7); WHITE BLOOD COUNT (AUTO) 5.1 K/uL (4.8-10.8)
[2017-03-15] MEDS: ALBUTEROL SULFATE/IPRATROPIU 3 ML SOL IH SCH ×3 (07:28→19:23)
[2017-03-15] MEDS: BUDESONIDE 0.5 MG/2 ML NEBU INH SCH ×2 (07:28→19:23)
[2017-03-15 08:00] VITALS: BP 121/72
[2017-03-15] MEDS: DILTIAZEM 120 MG CAPER PO SCH ×2 (08:36→20:39)
[2017-03-15] MEDS: DOCUSATE SODIUM 100 MG GELCAP PO SCH ×2 (08:36→20:39)
[2017-03-15] MEDS: LACTOBACILLUS RHAMNOSUS GG 1 EACH CAP PO SCH (08:36)
[2017-03-15] MEDS: ATORVASTATIN 20 MG TAB PO SCH (08:37)
[2017-03-15] MEDS: FUROSEMIDE 40 MG TAB PO SCH (08:37)
[2017-03-15] MEDS: NYSTATIN CRE 100 MU/GM 15 GM TUBE TP SCH ×2 (08:38→20:39)
[2017-03-15] MEDS: Z-GUARD PASTE TP SCH (08:38)
[2017-03-15] MEDS: APIXABAN 2.5 MG TAB PO SCH ×2 (08:42→20:37)
[2017-03-15 09:15] LABS: ANION GAP 6.8 (8-16); CARBON DIOXIDE 38.2 mmol/L (21-32); CREATININE 0.9 mg/dL (0.7-1.3)
[2017-03-15 09:23] LABS: MAGNESIUM 1.6 mg/dL (1.8-2.4); PHOSPHORUS 2.7 mg/dL (2.5-4.9)
--- NOTE | 2017-03-15 09:50 | NUR ---
CHANGED IV RATE TO 80ML/HR PER MD ORDER. PT CONTINUED NPO EXCEPT MEDS. EMPTIED COLOSTOMY BAG. 300ML OF BROWN STOOL NOTED. REPOSITIONED PT IN BED. HOB ELEVATED. ON O2 2L/MIN. NO SIGNS OF DISTRESS. CALL LIGHT WITHIN REACH. WILL CONTINUE TO MONITOR.
[2017-03-15] MEDS ORDERED: MAGNESIUM OXIDE 400 MG TAB PO SCH (10:49)
--- NOTE | 2017-03-15 11:22 | NUR ---
YUMIKO BUTTERFIELD #[phone] TO FOLLOW UP WITH THE SPEECH THERAPIST FOR SWALLOW EVALUATION. Addendum: 03/15/17 at 1126 by Eva Underwood RN AWAITING FOR CALL BACK.
[2017-03-15 12:00] VITALS: BP 102/64
--- NOTE | 2017-03-15 12:02 | NUR ---
ADMINISTERED CLEOCIN IVPB. PT TOLERATED WELL. PT HAD INCONTINENT URINE. CHANGED CHUX AND CLEANED PT. APPLIED Z-GUARD TO PERINEUM. REPOSITIONED IN BED. LYING ON LEFT SIDE WITH HOB ELEVATED 25 DEGREES. PT RESTING COMFORTABLY IN BED NOW. NO SIGNS OF DISTRESS. MILD COUGH PRESENT. NO SPUTUM NOTED. CALL LIGHT WITHIN REACH. WILL CONTINUE TO MONITOR.
--- NOTE | 2017-03-15 13:55 | NUR ---
AWAKE AND ALERT ENCOURAGED DEEP BREATH AND COUGH DURING THERAPY INTERMITTENT SPONTANEOUS EXPECTORATION X3 = LARGE THICK YELLOW SECRETIONS
--- NOTE | 2017-03-15 15:30 | NUR ---
EMPTIED COLOSTOMY BAG. 200ML OF BROWN STOOL NOTED. PT HAD INCONTINENT URINE. CHANGED LINEN AND CLEANED PT. APPLIED Z-GUARD TO JOSEPH AREA. PT TOLERATED WELL. SITTING UP IN BED. NO SIGNS OF DISTRESS. CALL LIGHT WITHIN REACH. WILL CONTINUE TO MONITOR.
[2017-03-15 16:00] VITALS: BP 109/65
--- NOTE | 2017-03-15 16:00 | NUR ---
BEDSIDE SWALLOW EVAL DONE BY DR. PALMA. PT WAS SITTING UP IN BED. PT DRANK THICKENED LIQUID WATER AND THIN LIQUID OF JUICE. ATE JELL-O AND APPLESAUCE. NO DYSPHAGIA, NO COUGH OBSERVED. PT TOLERATED FOOD AND LIQUIDS WELL.
--- NOTE | 2017-03-15 19:15 | NUR ---
ENDORSED PT TO SUPPLY CHAIN GENERALIST NURSE PREMA AT BEDSIDE FOR CONTINUITY OF CARE. PT IN STABLE CONDITION.
--- NOTE | 2017-03-15 19:26 | NUR ---
PT STATED HER DID NOT WANT ME TO CLAP ON HIS CHEST, REFUSED CPT
[2017-03-15] MEDS: ACETYLCYSTEINE 10% (100 MG/ML) 100 MG/ML VIAL INH SCH (19:38)
[2017-03-15 19:40] VITALS: BP 121/87
[2017-03-15] MEDS: NACL 0.9% 1,000 ML IV SCH (19:40)
--- NOTE | 2017-03-15 20:40 | NUR ---
ADMINISTERED SCHEDULED MEDICATIONS PT TOLERATED WELL. PT IN STABLE CONDITION, NO SIGNS OF DISTRESS NOTED. BED IN LOWEST POSITION, CALL LIGHT WITHIN REACH. WILL CONTINUE TO MONITOR.
[2017-03-15] MEDS ORDERED: LEVOFLOXACIN 750 MG/D5W PREMIX 150 ML IV SCH ×2 (21:00)
--- NOTE | 2017-03-15 22:25 | NUR ---
SPOKE TO DR TIM REGARDING PT HEART RATE BEING ELEVATED. DR TIM WILL ORDER SOMETHING. PT IS CALM, ASYMPTOMATIC. PT DROWSY AND NODDING OFF WHILE PLAYING CARDS. WILL CONTINUE TO MONITOR.
[2017-03-15] MEDS ORDERED: DILTIAZEM 25 MG/5 ML VIAL IVP SCH (22:40)
--- NOTE | 2017-03-15 23:00 | NUR ---
ADMINISTERED IV CARDIZEM, PT TOLERATED WELL. WILL REASSESS FOR EFFECTIVENESS.
[2017-03-16] VITALS: BP 102/64
--- NOTE | 2017-03-16 | NUR ---
BLOOD PRESSURE STABLE, AND HEART RATE CONTROLLED. CARDIZEM WAS EFFECTIVE. VITAL SIGNS STABLE, PT DENIES PAIN, FLACC 0. PT IN STABLE CONDITION, NO SIGNS OF DISTRESS NOTED. BED IN LOWEST POSITION, CALL LIGHT WITHIN REACH. WILL CONTINUE TO MONITOR.
[2017-03-16 04:00] VITALS: BP 113/64
--- NOTE | 2017-03-16 04:00 | NUR ---
VITAL SIGNS WITHIN NORMAL LIMITS, PT DENIES PAIN. PT IN STABLE CONDITION, NO SIGNS OF DISTRESS NOTED. BED IN LOW POSITION, CALL LIGHT WITHIN REACH. WILL CONTINUE TO MONITOR.
[2017-03-16] MEDS: LEVOTHYROXINE 0.075 MG TAB PO SCH (05:49)
[2017-03-16] MEDS: CLINDAMYCIN 600 MG in DEXTROSE 5% 50 ML IV SCH ×5 (05:49→17:10)
--- NOTE | 2017-03-16 05:50 | NUR ---
ADMINISTERED SCHEDULED MEDICATIONS, PT TOLERATED WELL. PT IN STABLE CONDITION, NO SIGNS OF DISTRESS NOTED. BED IN LOW POSITION, CALL LIGHT WITHIN REACH. WILL CONTINUE TO MONITOR.
--- NOTE | 2017-03-16 07:05 | NUR ---
ENDORSED PT IN STABLE CONDITION TO DAY SHIFT RN FOR CONTINUITY OF CARE.
[2017-03-16 07:15] LABS: ANION GAP 9.2 (8-16); CARBON DIOXIDE 33.9 mmol/L (21-32); CREATININE 0.9 mg/dL (0.7-1.3); POTASSIUM 4.1 mmol/L (3.5-5.1)
[2017-03-16 07:17] LABS: MAGNESIUM 1.7 mg/dL (1.8-2.4); PHOSPHORUS 3.4 mg/dL (2.5-4.9)
[2017-03-16 07:18] LABS: BASOPHILS % (AUTO) 0.6 % (0.0-2.0); EOSINOPHILS % (AUTO) 0.5 % (0.0-4.0); HEMATOCRIT 37.2 % (36-52); HEMOGLOBIN 12.2 g/dL (12.0-18.0); LYMPHOCYTES # (AUTO) 0.6 K/uL (2.0-11.5); LYMPHOCYTES % (AUTO) 10.3 % (20.5-51.1); MEAN CORPUSCULAR HEMOGLOBIN 29 pg (27-31); MEAN CORPUSCULAR HGB CONC 33 g/dL (33-37); MEAN CORPUSCULAR VOLUME 88 fL (80-94); MONOCYTES # (AUTO) 0.5 K/uL (0.8-1.0); MONOCYTES % (AUTO) 9.1 % (1.7-9.3); NEUTROPHILS # (AUTO) 4.9 K/uL (1.8-7.7); NEUTROPHILS % (AUTO) 79.5 % (42.2-75.2); PLATELET COUNT (AUTO) 383 K/uL (140-450); RED BLOOD CELL COUNT(AUTO) 4.24 MIL/uL (4.20-6.10); RED CELL DISTRIBUTION WIDTH 15.4 % (11.6-13.7)
[2017-03-16] MEDS: ALBUTEROL SULFATE/IPRATROPIU 3 ML SOL IH SCH ×2 (07:23→13:41)
[2017-03-16] MEDS: BUDESONIDE 0.5 MG/2 ML NEBU INH SCH (07:24)
[2017-03-16] MEDS: ACETYLCYSTEINE 10% (100 MG/ML) 100 MG/ML VIAL INH SCH ×2 (07:24→13:41)
--- NOTE | 2017-03-16 07:25 | NUR ---
RECEIVED PT IN BED. AWAKE. ALERT ORIENTEDX4. NO SOB NOTED. DENIES ANY PAIN OR DISCOMFORT AT THIS TIME. ON O2 AT 2LPM NC. PT ON BED REST. COLOSTOMY BAG IN PLACE. SAFETY PRECAUTION IN PLACE. CALL LIGHT WITHIN REACH.
[2017-03-16 07:45] VITALS: BP 96/56
[2017-03-16 08:45] VITALS: BP 110/61
[2017-03-16] MEDS: DILTIAZEM 120 MG CAPER PO SCH (08:49)
[2017-03-16] MEDS: DOCUSATE SODIUM 100 MG GELCAP PO SCH (08:50)
[2017-03-16] MEDS: LACTOBACILLUS RHAMNOSUS GG 1 EACH CAP PO SCH (08:50)
[2017-03-16] MEDS: FUROSEMIDE 40 MG TAB PO SCH (08:50)
[2017-03-16] MEDS: ATORVASTATIN 20 MG TAB PO SCH (08:50)
[2017-03-16] MEDS: APIXABAN 2.5 MG TAB PO SCH (08:54)
[2017-03-16] MEDS: Z-GUARD PASTE TP SCH (09:00)
[2017-03-16] MEDS: NYSTATIN CRE 100 MU/GM 15 GM TUBE TP SCH (09:00)
[2017-03-16] MEDS ORDERED: LACT10CA PO (10:30)
[2017-03-16] MEDS ORDERED: LEVO750T2 PO (10:30)
[2017-03-16] MEDS ORDERED: CLIN-187 PO (10:30)
--- NOTE | 2017-03-16 10:31 | NUR ---
DR. FENG MADE AWARE OF LATEST MAGNESIUM LEVEL OF 1.7. TO PUT IN AN ORDER.
--- NOTE | 2017-03-16 11:37 | NUR ---
COLOSTOMY CARE PROVIDED. GOOD SKIN CARE RENDERED. PT TOLERATED WELL.
[2017-03-16 12:00] VITALS: BP 90/61
[2017-03-16] MEDS ORDERED: MAGNESIUM OXIDE 400 MG TAB PO SCH (12:00)
--- NOTE | 2017-03-16 12:59 | NUR ---
MARCUS FRYE CAME TO SEE PT.
--- NOTE | 2017-03-16 13:00 | NUR ---
CASTER HELPER note (bedside swallow evaluation completed) [id number]. Bedside swallow evaluation completed, please see report for details. CASTER HELPER provided pt with education regarding purpose of evaluation and started to provide rationale for recommendations; however, pt did not wish to hear remainder of education. Pt unlikely to have benefitted from education provided. Recommend: 1) mechanical soft chopped textures 2) thin liquids 3) aspiration precautions (including pt must be FULLY upright/awake/alert for any PO intakes, alternate small/slow bites and sips, stop giving PO if pt becomes less alert/SOB/coughing) 4) no further CASTER HELPER intervention indicated at this time. Physician may reorder if further concerns arise, as appropriate. G-codes: [id number] [facility] NOMS level 4. PVE for d/w RN (Devorah) prior to and following bedside swallow evaluation completion. CASTER HELPER posted safe swallow strategies above pt's HOB.
--- NOTE | 2017-03-16 14:02 | NUR ---
PHYSICAL THERAPY CO-SIGN The Physical Therapy Progress Notes documented by Career Representative have been reviewed. I CONCUR W/BEAMSTER NOTE; CONT PER TX PLAN Reviewed/Co-Signed by: Laura Piña, PT Documentation Done by: JODY SCOTT PTA Addendum: 03/16/17 at 1402 by Laura Piña PT Amended: Links added.
--- NOTE | 2017-03-16 14:22 | NUR ---
DISCHARGE ORDERS WERE MADE BY . CALLED [facility] AT [phone]. SPOKE WITH BRITT. IMPROVEMENT MANAGER TIME WILL BE AT 5:00PM. AND NUMBER TO GIVE REPORT IS [phone]. PNA VACCINE WAS GIVEN, AT LEFT DELTOID, PT TOLERATED WELL. CALLED SON, JUAN, AT [phone], MADE AWARE OF TRANSFER, AND VERBALIZED UNDERSTANDING.
[2017-03-16] MEDS ORDERED: DILT-135 PO (14:42)
--- NOTE | 2017-03-16 15:46 | NUR ---
SACRAL WOUND AND PENILE AREA PHOTO TAKEN AND IN TO CHART.
--- NOTE | 2017-03-16 15:55 | NUR ---
TRIED CALLING [phone] FOR REPORT NO ANSWER. CALLED BRITT AT [phone] AND REPORT GIVEN. PER BRITT STUNT PERSON TIME WILL BE AROUND 5PM.
[2017-03-16 16:00] VITALS: BP 102/63
--- NOTE | 2017-03-16 16:20 | NUR ---
DISCHARGE INSTRUCTIONS AND HEALTH TEACHING, GIVEN AND EXPLAINED TO PT. PT VERBALIZED UNDERSTANDING AND SIGNED DISCHARGE PAPERS. NO SOB NOTED ON O2 AT 2LPM NC. DENIES ANY PAIN OR DISCOMFORT AT THIS TIME. DISCUSSED APPOINTMENT SCHEDULED WITH DR. SONYA MEDEROS ON MARCH 18, 2017 AT 1045 AM. AND BRITT MORALEZ [facility] PATH[facility] MADE AWARE.
--- NOTE | 2017-03-16 16:27 | NUR ---
03/16/17 RD FOLLOW UP COMPLETED. PLEASE REFER TO NUTRITION PROGRESS NOTE UNDER CARE ACTIVITY FOR ESTIMATED NUTRITION NEEDS. SWALLOW EVALUATION TO DETERMINE SAFE SWALLOW GUIDELINES AND APPROPRIATE FOOD TEXTURE CONTINUE CURRENT [facility] SOFT DIET AND ADVANCE APPROPRIATE AFTER SWALLOW EVAL. RD TO FOLLOW-UP 3-5DAYS, MODERATE RISK KENZIE ANTOINE, HERMINIA
--- NOTE | 2017-03-16 17:42 | NUR ---
SEAN, TRANSPORTATION FROM [facility] CAME TO [employer] HEAD INSPECTOR PT. PROVIDED WITH DISCHARGE PAPERS. PT MAINTAINED ON O2 AT 2LPM NC. NO SOB NOTED. DENIES ANY PAIN OR DISCOMFORT AT THIS TIME. PT TRANSFERRED TO WHEELCHAIR SAFETY AND COMFORTABLY. Addendum: 03/16/17 at 1749 by Devorah Sultana RN IV CANNULA REMOVED AND INTACT. TELEMONITOR REMOVED. NAME ARMBAND REMOVED.
--- NOTE | 2017-03-16 17:47 | NUR ---
PT WHEELED OUT BY [employer], GOING TO THE HOSPITAL PARKING LOT, ASSISTED BY SIMULATION TECH TO THEIR VEHICLE. PT DISCHARGED ON STABLE CONDITION. NO SOB NOTED, MAINTAINED ON O2 AT 2LPM. DENIES ANY PAIN OR DISCOMFORT AT THIS TIME.
[2017-03-17] MEDS ORDERED: LEVOTHYROXINE 0.1 MG, LEVOTHYROXINE 0.025 MG PO SCH ×2 (06:30)
== END 2017-03-16 17:45 | disposition home or self-care (01) | DRG 871 ==
LOC: MED 18:33 → MTU 23:13
PROVIDERS: ADMIT Family Medicine Sports Medicine; ATTEND Family Medicine Sports Medicine
PROC: 3E0234Z Introduction of Serum, Toxoid and Vaccine into Muscle, Percutaneous Approach (ICD-10-PCS; principal; 2017-03-16)
DX: A41.9 Sepsis, unspecified organism (principal); N17.0 Acute kidney failure with tubular necrosis; J96.21 Acute and chronic respiratory failure with hypoxia; I50.43 Acute on chronic combined systolic (congestive) and diastolic (congestive) heart failure; I48.2 Chronic atrial fibrillation; E44.0 Moderate protein-calorie malnutrition; D61.818 Other pancytopenia; E83.42 Hypomagnesemia; E87.1 Hypo-osmolality and hyponatremia; J44.1 Chronic obstructive pulmonary disease with (acute) exacerbation; N39.0 Urinary tract infection, site not specified; E87.8 Other disorders of electrolyte and fluid balance, not elsewhere classified; E03.9 Hypothyroidism, unspecified; E78.5 Hyperlipidemia, unspecified; F70 Mild intellectual disabilities; I11.0 Hypertensive heart disease with heart failure; E11.9 Type 2 diabetes mellitus without complications; Z96.649 Presence of unspecified artificial hip joint; Z23 Encounter for immunization; I25.2 Old myocardial infarction; Z93.3 Colostomy status; Z79.899 Other long term (current) drug therapy; Z68.23 Body mass index [BMI] 23.0-23.9, adult
CPT/HCPCS: 36415; 71045; 80048; 80053; 80305; 81001; 82550; 82553; 83036; 83605; 83735; 83874; 83880; 84100; 84439; 84443; 84484; 85025; 85610; 85730; 87040; 87081; 87086; 87804; 90732; 92610; 93005; 94640; 94667; 96361; 96374; 96375; 96376; 97110; 97140; 97530; 97799; 99285; J1956; J2920; J2930; J3475; J3490; J7030; J7060; J7613; J7620; J7626; Q0092

== ENCOUNTER 2018-07-11 09:15 | Inpatient (IN) | payer OTHER, MEDICAID ==
[~2018-07-11] VITALS: Ht 165.1 cm; Wt 74.4 kg
[~2018-07-11 09:15] MED LIST changes: +CLIN-178 PO; +FURO-570 PO; +LACT10CA PO; +LEVO750T2 PO
[2018-07-11 09:22] VITALS: BP 115/72
--- NOTE | 2018-07-11 09:22 | NUR ---
Patient transferred to bed 5 via wheelchair by caregiver. RN evaluating patient at bedside.
--- NOTE | 2018-07-11 09:22 | NUR ---
BIB CAREGIVER FROM [facility] FOR COUGH X1 WEEK. PT WAS PRESCRIBED WITH PREDNISONE AND TUSSIN, LAST GIVEN TODAY AM WITH NO RELIEF. JOSE DE JESUS UPPER LUNGS WHEEZING NOTED UPON INSPIRATION. PT DOESN'T SPIT OUT PHLEGM PER CAREGIVER. PT PLACED ON FULL ASSET MANAGER. HOB UP. BED SIDE RAILS UP X1. ON LOW BED POSITION, LOCKED. ER TO EVALUATE PT.
--- NOTE | 2018-07-11 09:28 | NUR ---
Dr. Nieto evaluating patient at bedside.
[2018-07-11] MEDS ORDERED: cefTRIAXone 1,000 MG in LIDOCAINE 1% ***ER ONLY *** 2.1 ML IM ONE (09:35)
[2018-07-11] MEDS ORDERED: PROMETHAZINE 25 MG/ML VIAL IM ONE (09:35)
[2018-07-11] MEDS ORDERED: ALBUTEROL SULFATE/IPRATROPIU 3 ML SOL IH ONE (09:35)
[2018-07-11] MEDS ORDERED: DEXAMETHASONE 10 MG/ML VIAL IM ONE (09:35)
[2018-07-11] MEDS ORDERED: SODI1TAB1 PO (09:43)
[2018-07-11] MEDS ORDERED: PROM118S4 PO (09:43)
[2018-07-11] MEDS ORDERED: DIPH25TA53 PO (09:43)
[2018-07-11] MEDS ORDERED: [UNRECOGNIZED DRUG - CODE] TP (09:43)
[2018-07-11] MEDS ORDERED: MAGN400S60 PO (09:43)
[2018-07-11] MEDS ORDERED: DILT-135 PO (09:43)
[2018-07-11] MEDS ORDERED: APIX5TAB PO (09:43)
[2018-07-11] MEDS ORDERED: MULT-1869 PO (09:43)
--- NOTE | 2018-07-11 09:50 | NUR ---
graphic art technician at bedside.
--- NOTE | 2018-07-11 09:51 | NUR ---
Breathing treatment administered at bedside by respiratory therapist.
[2018-07-11] MEDS ORDERED: cefTRIAXone 1,000 MG VIAL ONE (10:01)
--- NOTE | 2018-07-11 10:05 | NUR ---
PT HEART RATE GOES BETWEEN 117-127. DR MELENDEZ NOTIFIED.
--- NOTE | 2018-07-11 10:18 | NUR ---
Dr. Nieto re-evaluating patient at bedside.
[2018-07-11] MEDS ORDERED: NACL 0.9% 1,000 ML IV SCH (10:27)
[2018-07-11 10:58] LABS: BASOPHILS % (AUTO) 0.1 % (0.0-2.0); HEMATOCRIT 43.4 % (36-52); HEMOGLOBIN 14.3 g/dL (12.0-18.0); LYMPHOCYTES # (AUTO) 0.6 K/uL (2.0-11.5); MEAN CORPUSCULAR HEMOGLOBIN 30 pg (27-31); MEAN CORPUSCULAR HGB CONC 33 g/dL (33-37); MEAN CORPUSCULAR VOLUME 89.9 fL (80-94); NEUTROPHILS # (AUTO) 9.1 K/uL (1.8-7.7); PLATELET COUNT (AUTO) 442 K/uL (140-450); RED BLOOD CELL COUNT(AUTO) 4.83 MIL/uL (4.20-6.10); RED CELL DISTRIBUTION WIDTH 14.6 % (11.6-13.7); WHITE BLOOD COUNT (AUTO) 10.7 K/uL (4.8-10.8)
[2018-07-11 11:07] LABS: ANION GAP 8.6 (8-16); CARBON DIOXIDE 30.8 mmol/L (21-32); CHLORIDE 98 mmol/L (98-107); CREATININE 0.8 mg/dL (0.7-1.3); GLUCOSE 78 mg/dL (74-106); POTASSIUM 4.4 mmol/L (3.5-5.1); SODIUM SERUM 133 mmol/L (136-145); UREA NITROGEN, BLOOD 23 mg/dL (7-18)
--- NOTE | 2018-07-11 11:09 | NUR ---
URINE COLLECTED AND SENT TO LAB
[2018-07-11 11:13] LABS: ASPARTATE AMINOTRANSFERASE 21 U/L (15-37); TOTAL BILIRUBIN 0.6 mg/dL (0.0-1.0)
[2018-07-11 11:21] LABS: NEUTROPHILS % (AUTO) 85.1 % (42.2-75.2)
[2018-07-11 11:22] LABS: LYMPHOCYTES % (AUTO) 5.6 % (20.5-51.1); MONOCYTES % (AUTO) 9.2 % (1.7-9.3)
[2018-07-11 12:01] LABS: BILIRUBIN,URINE NEGATIVE (NEGATIVE); BLOOD, URINE TRACE-I (NEGATIVE); COLOR,URINE YELLOW (YELLOW); LEUKOCYTE ESTERASE ,URINE 1+ (NEGATIVE); NITRITE, URINE NEGATIVE (NEGATIVE); UGLUCOSE NEGATIVE (NEGATIVE)
[2018-07-11 12:10] LABS: APPEARANCE,URINE SLIGHTLY HAZY (CLEAR)
[2018-07-11 12:19] LABS: RBC,URINE 0-5 /HPF (0-5)
[2018-07-11 13:40] VITALS: BP 133/74
--- NOTE | 2018-07-11 13:40 | NUR ---
RECEIVED PT FROM ER NURSE VIA FRED, PT IS AWAKE AND HAS AN O2 AT 2L VIA NC IN PLACE, IV LINE ON THE RT FA G. 20 ON SALINE LOCK, PT HAS MENTAL DISABILITY, EXCORIATION OVER THE BILATERAL BUTTOCKS WERE NOTED AND WAS REINFORCED WITH DRESSING. VITAL SIGNS TAKEN AND BP IS 133/74, PULSE IS 67, O2 SATURATION IS 94% ON O2 2L NC, TEMPERATURE IS 98.2. NO SIGN OF DISTRESS NOTED AND WILL MONITOR PT.
--- NOTE | 2018-07-11 13:40 | NUR ---
Patient will be admitted to care of Dr Gonsalez. Admited to Tele. Will go to room 121 A. Belongings list completed. Report to KATHERIN Higgins.
[2018-07-11] MEDS ORDERED: ALBUTEROL HFA MDI 90 MCG/ACTUATION 8 GM INH PRN (13:50)
[2018-07-11] MEDS ORDERED: MAGNESIUM HYDROXIDE 2400 MG/30 ML UDC PO PRN (13:50)
[2018-07-11] MEDS ORDERED: FLUOCINONIDE 0.05% OINT 30 GM TUBE TP PRN (13:50)
[2018-07-11] MEDS ORDERED: ONDANSETRON 4 MG/2 ML VIAL IVP PRN (13:50)
[2018-07-11] MEDS ORDERED: HYDROcodone/APAP 5/325 MG 1 TAB TAB PO PRN (13:50)
[2018-07-11] MEDS ORDERED: PROMETHAZINE PO PRN (13:50)
[2018-07-11] MEDS ORDERED: GUAIFENESIN PO PRN (13:50)
[2018-07-11] MEDS ORDERED: LORazepam 2 MG/ML VIAL IVP PRN (13:50)
[2018-07-11] MEDS ORDERED: DEXTROMETHORPHAN PO PRN ×2 (13:50)
[2018-07-11] MEDS ORDERED: IBUPROFEN 600 MG TAB PO PRN ×2 (13:50→14:10)
[2018-07-11] MEDS ORDERED: guaiFENesin DM 200/20 MG-10 ML 10 ML UDC PO PRN (14:05)
[2018-07-11] MEDS: DEXT 5% /NACL 0.9% 1,000 ML IV SCH ×2 (15:07→20:10)
--- NOTE | 2018-07-11 15:08 | NUR ---
PT IS AWAKE AND LYING ON THE BED WITH SIDE RAILS UP AND CALL LIGHT WITHIN REACH, PT WAS STARTED ON IVF OF D5NS AT 100ML/HR ON THE RT FA G. 20.
[2018-07-11 16:00] VITALS: BP 122/65
--- NOTE | 2018-07-11 18:43 | NUR ---
PER [facility], PT IS FULL CODE.
--- NOTE | 2018-07-11 19:10 | NUR ---
ENDORSED PT TO INGOT STRIPPER NURSE FOR CONTINUITY OF CARE. PT IS AWAKE AND STABLE AT THIS TIME.
--- NOTE | 2018-07-11 19:30 | NUR ---
RECEIVED BEDSIDE REPORT FROM DAY SHIFT RN, PATIENT IN BED, SPANISH SPEAKING, ON 2 L NC, V/S STABLE, NOTED INSPIRATORY AND EXPIRATORY WHEEZING, RT AWARE. IV IN RIGHT FA 22 G INFUSING D5W/NS AT 100 ML/HR, SECURED TUBING WITH TAPE, NOTED COLOSTOMY BAG IN PLACE DRAINING SOFT BROWN URINE, PATIENT ABDOMEN IS SOFT NON TENDER. EXPLAINED PLAN OF CARE, BED ALARM ON.
[2018-07-11] MEDS: BUDESONIDE 0.5 MG/2 ML NEBU INH SCH (19:39)
[2018-07-11] MEDS: ALBUTEROL 0.083% 2.5 MG/3 ML NEBU INH PRN (19:54)
[2018-07-11 20:00] VITALS: BP 129/62
[2018-07-11] MEDS: methylPREDNISolone SS 40 MG/ML VIAL IVP SCH (20:10)
--- NOTE | 2018-07-11 20:10 | NUR ---
DUE MEDICATIONS GIVEN
[2018-07-11] MEDS: APIXABAN 2.5 MG TAB PO SCH (20:16)
[2018-07-11] MEDS ORDERED: NON-FORMULARY ITEM (Apixaban (Eliquis) 5 MG) PO SCH (21:00)
--- NOTE | 2018-07-11 22:07 | NUR ---
SLEEPING IN BED, BED ALARM ON, NO SIGNS OF DISTRESS
[2018-07-12] VITALS: BP 130/68
--- NOTE | 2018-07-12 02:11 | NUR ---
JOSEPH CARE PROVIDED, PLACED OPTIFOAM ON SACRAL AREA. BED ALARM ON.
[2018-07-12 04:00] VITALS: BP 118/66
--- NOTE | 2018-07-12 04:00 | NUR ---
V/S TAKEN ALL STABLE, PATIENT SLEEPING, WILL CONTINUE TO MONITOR.
[2018-07-12] MEDS: LEVOTHYROXINE 0.1 MG, LEVOTHYROXINE 0.025 MG PO SCH ×2 (06:15)
--- NOTE | 2018-07-12 06:20 | NUR ---
DUE MEDICATION GIVEN
[2018-07-12 06:34] LABS: HEMATOCRIT 42.8 % (36-52); LYMPHOCYTES # (AUTO) 0.3 K/uL (2.0-11.5); LYMPHOCYTES % (AUTO) 5.6 % (20.5-51.1); MEAN CORPUSCULAR HEMOGLOBIN 30 pg (27-31); MEAN CORPUSCULAR HGB CONC 33 g/dL (33-37); MEAN CORPUSCULAR VOLUME 90.1 fL (80-94); MONOCYTES # (AUTO) 0.2 K/uL (0.8-1.0); NEUTROPHILS # (AUTO) 4.8 K/uL (1.8-7.7); NEUTROPHILS % (AUTO) 91.4 % (42.2-75.2); PLATELET COUNT (AUTO) 432 K/uL (140-450); RED BLOOD CELL COUNT(AUTO) 4.75 MIL/uL (4.20-6.10); RED CELL DISTRIBUTION WIDTH 14.8 % (11.6-13.7); WHITE BLOOD COUNT (AUTO) 5.2 K/uL (4.8-10.8)
[2018-07-12 07:01] LABS: MAGNESIUM 1.9 mg/dL (1.8-2.4); PHOSPHORUS 3.2 mg/dL (2.5-4.9)
[2018-07-12 07:03] LABS: ALBUMIN 2.7 g/dL (3.4-5.0); ANION GAP 9.7 (8-16); ASPARTATE AMINOTRANSFERASE 20 U/L (15-37); CARBON DIOXIDE 28.7 mmol/L (21-32); CHLORIDE 103 mmol/L (98-107); CREATININE 0.8 mg/dL (0.7-1.3); GLUCOSE 121 mg/dL (74-106); POTASSIUM 4.4 mmol/L (3.5-5.1); SODIUM SERUM 137 mmol/L (136-145); TOTAL BILIRUBIN 0.4 mg/dL (0.0-1.0); UREA NITROGEN, BLOOD 21 mg/dL (7-18)
[2018-07-12] MEDS: BUDESONIDE 0.5 MG/2 ML NEBU INH SCH ×2 (07:04→19:44)
--- NOTE | 2018-07-12 07:14 | NUR ---
WILL ENDORSE PATIENT TO DAY SHIFT RN, PATIENT STABLE.
--- NOTE | 2018-07-12 07:15 | NUR ---
RECEIVED BEDSIDE REPORT FROM BODY ENGINEER NURSE. PATIENT IS AWAKE, ALERT AND ORIENTEDX4. WITH MILD INTELLECTUAL DISABILITY. SKIN HAS COLOSTOMY, BAG IS CLEAN AND DRY. SACRAL EXCORIATION. PATIENT IS INCONTINENT. FALL RISK PROTOCOL IN PLACE. PER BODY ENGINEER PATIENT WALKS W WALKER. IV ON R FA 20G INFUSING D5NS AT 100. CLEAN, DRY AND INTACT. TELE MONITOR IN PLACE. NO COMPLAINTS AT THIS TIME.PATIENT ABLE TO MAKE NEEDS KNOWN. WILL CONTINUE TO MONITOR THE PATIENT. BED IN LOW POSITION
[2018-07-12 08:00] VITALS: BP 106/85
[2018-07-12] MEDS ORDERED: NON-FORMULARY ITEM (Levothyroxine Sodium* (Synthroid*) 0.125 MG) PO SCH (09:00)
[2018-07-12] MEDS ORDERED: NON-FORMULARY ITEM (Multivit-Min/Iron Fum/Folic AC (Multi-Vitamin-Minerals Tablet) 1 TAB) PO SCH (09:00)
[2018-07-12] MEDS ORDERED: SODIUM CHLORIDE 2 GM PO SCH (09:00)
[2018-07-12] MEDS: MULTIVITAMIN/MINERALS 1 TAB PO SCH (09:07)
[2018-07-12] MEDS: SODIUM CHLORIDE 1 GM TAB PO SCH (09:08)
[2018-07-12] MEDS: DILTIAZEM 120 MG CAPER PO SCH (09:08)
[2018-07-12] MEDS: methylPREDNISolone SS 40 MG/ML VIAL IVP SCH ×2 (09:08→20:25)
[2018-07-12] MEDS: APIXABAN 2.5 MG TAB PO SCH ×2 (09:10→20:29)
--- NOTE | 2018-07-12 09:12 | NUR ---
ADMINISTERED MEDS. EDUCATED ON SIDE EFFECTS. PATIENT TOLERATED WELL. BED IN LOW POSITION. CALL LIGHT WITHIN REACH. WILL CONTINUE TO MONITOR THE PATIENT
[2018-07-12] MEDS: DEXT 5% /NACL 0.9% 1,000 ML IV SCH ×2 (10:37→20:30)
--- NOTE | 2018-07-12 10:38 | NUR ---
STARTED NEW BAG OF IV FLUIDS D5NS AT 100. R FA 20G IS CLEAN,DRY AND INTACT. WILL CONTINUE TO MONITOR THE PATIENT
--- NOTE | 2018-07-12 10:45 | NUR ---
COLOSTOMY BAG FULL AND POPPED OPEN. PLACED NEW COLOSTOMY BAG. PATIENT IS CLEAN AND DRY. WILL CONTINUE TO MONITOR
--- NOTE | 2018-07-12 11:36 | NUR ---
PATIENT IN NO SIGNS OF DISTRESS. PATIENT OBSERVATION ASSISTANT AT BEDSIDE. WILL CONTINUE TO MONITOR THE PATIENT
[2018-07-12 12:00] VITALS: BP 140/77
--- NOTE | 2018-07-12 13:00 | NUR ---
PATIENT FINISHED ALL HIS LUNCH. NO SIGNS OF DISTRESS. WILL CONTINUE TO MONITOR THE PATIENT
--- NOTE | 2018-07-12 13:30 | NUR ---
PATIENT HAS BEEN SCREENED AND CATEGORIZED MODERATE NUTRITION RISK. PATIENT WILL BE SEEN WITHIN 3-5 DAYS OF ADMISSION. 07/14/18SAVITA JIANG MBA, RD
--- NOTE | 2018-07-12 15:24 | NUR ---
PATIENT LAYING IN BED, NO SIGNS OF DISTRESS. WILL CONTINUE TO MONITOR THE PATIENT.
[2018-07-12 16:00] VITALS: BP 121/61
--- NOTE | 2018-07-12 17:10 | NUR ---
PATIENT SITTING IN BED. NO SIGNS OF DISTRESS. WILL CONTINUE TO MONITOR THE PATIENT
--- NOTE | 2018-07-12 19:00 | NUR ---
GAVE BEDSIDE REPORT TO LINOTYPE MACHINIST APPRENTICE NURSE. PATIENT ENDORSED IN STABLE CONDITION
--- NOTE | 2018-07-12 19:30 | NUR ---
RECEIVED PT ON BED WATCHING TV, AAOX4, ABLE TO MAKE NEEDS KNOWN, VITAL SIGNS STABLE, SAT-97% ON O2 AT 2L NC, AUDIBLE WHEEZING NOTED, PT ABLE TO SPEAK IN FULL SENTENCES, RT DIEGO MADE AWARE, WILL GIVE BREATHING TX, MAINTAINED ON HIGH FOWLERS POSITION, IVF INFUSING WELL, COLOSTOMY INTACT, SAFETY MEASURES IN PLACE, CALL LIGHT WITHIN REACH.
[2018-07-12] MEDS: ALBUTEROL 0.083% 2.5 MG/3 ML NEBU INH PRN (19:44)
[2018-07-12 20:00] VITALS: BP 135/76
--- NOTE | 2018-07-12 20:30 | NUR ---
DUE MEDS ADMINISTERED, TOLERATED WELL, GABY REGALADO PROVIDED PER REQUEST, ASSIST IN REPOSITIONING AND OFFLOAD PRESSURE AREAS, ALL NEEDS ATTENDED.
--- NOTE | 2018-07-12 22:40 | NUR ---
PT INCONTINENT OF URINE, CLEANED AND REPOSITIONED, MONITORED CLOSELY.
[2018-07-13] VITALS: BP 111/58
--- NOTE | 2018-07-13 | NUR ---
PT SLEEPING, EASILY AROUSABLE, VITAL SIGNS STABLE, NO RESP DISTRESS NOTED, IVF INFUSING WELL, CONTINUE TO MONITOR CLOSELY.
--- NOTE | 2018-07-13 02:10 | NUR ---
PT WITH WELL FORMED STOOL, DIFFICULT TO DRAIN FROM COLOSTOMY BAG, NEW COLOSTOMY BAG APPLIED.
[2018-07-13] MEDS ORDERED: Z-GUARD PASTE TP PRN (02:50)
[2018-07-13 04:00] VITALS: BP 126/66
--- NOTE | 2018-07-13 04:00 | NUR ---
PT SLEEPING, EASILY AROUSABLE, VITAL SIGNS STABLE, CONTROLLED A-FIB ON TELE, NO SOB NOTED BUT WITH MINIMAL WHEEZING NOTED, SAT-97% ON 2L NC, IVF INFUSING WELL, MONITORED CLOSELY.
[2018-07-13] MEDS: LEVOTHYROXINE 0.1 MG, LEVOTHYROXINE 0.025 MG PO SCH ×2 (05:47)
[2018-07-13] MEDS: DEXT 5% /NACL 0.9% 1,000 ML IV SCH ×2 (05:47→18:40)
--- NOTE | 2018-07-13 05:50 | NUR ---
PT AWAKE WATCHING TV, DUE PO MEDICATION TAKEN, TOLERATED WELL, NO RESP DISTRESS NOTED, IVF INFUSING WELL, MONITORED CLOSELY.
[2018-07-13 07:02] LABS: ANION GAP 10.9 (8-16); CARBON DIOXIDE 27.5 mmol/L (21-32); CHLORIDE 105 mmol/L (98-107); CREATININE 0.7 mg/dL (0.7-1.3); GLUCOSE 109 mg/dL (74-106); POTASSIUM 4.4 mmol/L (3.5-5.1); SODIUM SERUM 139 mmol/L (136-145); UREA NITROGEN, BLOOD 21 mg/dL (7-18)
[2018-07-13 07:03] LABS: BASOPHILS % (AUTO) 0.1 % (0.0-2.0); LYMPHOCYTES # (AUTO) 0.2 K/uL (2.0-11.5); LYMPHOCYTES % (AUTO) 2.9 % (20.5-51.1); MEAN CORPUSCULAR HEMOGLOBIN 30 pg (27-31); MEAN CORPUSCULAR HGB CONC 33 g/dL (33-37); MEAN CORPUSCULAR VOLUME 90.4 fL (80-94); MONOCYTES # (AUTO) 0.4 K/uL (0.8-1.0); MONOCYTES % (AUTO) 5.6 % (1.7-9.3); NEUTROPHILS # (AUTO) 6.6 K/uL (1.8-7.7); NEUTROPHILS % (AUTO) 91.4 % (42.2-75.2); PLATELET COUNT (AUTO) 417 K/uL (140-450); RED BLOOD CELL COUNT(AUTO) 4.42 MIL/uL (4.20-6.10); RED CELL DISTRIBUTION WIDTH 14.9 % (11.6-13.7); WHITE BLOOD COUNT (AUTO) 7.2 K/uL (4.8-10.8)
--- NOTE | 2018-07-13 07:21 | NUR ---
PT AWAKE, NO DISTRESS NOTED, REPORT GIVEN TO RN VIRGINIA FOR CONTINUITY OF CARE.
--- NOTE | 2018-07-13 07:22 | NUR ---
RECEIVED BEDSIDE REPORT FROM SWITCH OPERATORS SUPERVISOR NURSE. PATIENT IS AWAKE, ALERT AND ORIENTEDX4. NO SIGNS OF DISTRESS ON 2L NC. PATIENT IS FALL RISK, PATIENT AMBULATES W WALKER AT HOME. PATIENT HAS COLOSTOMY, CLEAN AND DRY. PATIENT IS INCONTINENT. SACRAL EXCORIATION. R FA 20G INFUSING D5NS AT 100. CLEAN, DRY AND INTACT. TELE MONITOR IN PLACE. BED IN LOW POSITION. CALL LIGHT WITHIN REACH. WILL CONTINUE TO MONITOR THE PATIENT.
[2018-07-13 08:00] VITALS: BP 139/78
[2018-07-13] MEDS: MULTIVITAMIN/MINERALS 1 TAB PO SCH (09:45)
[2018-07-13] MEDS: DILTIAZEM 120 MG CAPER PO SCH (09:45)
[2018-07-13] MEDS: methylPREDNISolone SS 40 MG/ML VIAL IVP SCH ×2 (09:46→21:11)
[2018-07-13] MEDS: APIXABAN 2.5 MG TAB PO SCH ×2 (09:46→21:13)
[2018-07-13] MEDS: SODIUM CHLORIDE 1 GM TAB PO SCH (09:47)
--- NOTE | 2018-07-13 09:51 | NUR ---
ADMINISTERED MEDS. PATIENT EDUCATED ON SIDE EFFECTS. TOLERATED WELL. WILL CONTINUE TO MONITOR THE PATIENT
--- NOTE | 2018-07-13 11:51 | NUR ---
PATIENT IS WATCHING TV. NO SIGNS OF DISTRESS. WILL CONTINUE TO MONITOR THE PATIENT
[2018-07-13 12:00] VITALS: BP 115/71
[2018-07-13] MEDS: Z-GUARD PASTE TP SCH (12:37)
--- NOTE | 2018-07-13 13:07 | NUR ---
PATIENT IS SLEEPING. NO SIGNS OF DISTRESS WILL CONTINUE TO MONITOR THE PATIENT.
--- NOTE | 2018-07-13 15:38 | NUR ---
PATIENT SITTING IN BED WATCHING TV. NO SIGNS OF DISTRESS ON 2L NC. WILL CONTINUE TO MONITOR THE PATIENT
[2018-07-13 16:00] VITALS: BP 123/60
--- NOTE | 2018-07-13 17:14 | NUR ---
PATIENT SITTING IN BED. NO SIGNS OF DISTRESS. NO COMPLAINTS AT THIS TIME. WILL CONTINUE TO MONITOR THE PATIENT.
--- NOTE | 2018-07-13 19:14 | NUR ---
GAVE BEDSIDE REPORT TO COVER STRIPPER NURSE. PATIENT ENDORSED IN STABLE CONDITION
--- NOTE | 2018-07-13 19:15 | NUR ---
RECEIVED BEDSIDE REPORT FROM DAY SHIFT RNVIRGINIA. PATIENT IN STABLE CONDITION, NO SIGNS OF DISTRESS ON 2L NC. SAFETY PRECAUTIONS IN PLACE. CALL LIGHT IN REACH.
[2018-07-13] MEDS: BUDESONIDE 0.5 MG/2 ML NEBU INH SCH ×2 (19:30→19:46)
[2018-07-13 20:00] VITALS: BP 135/66
--- NOTE | 2018-07-13 21:11 | NUR ---
ADMINISTERED SCHEDULED MEDICATIONS. PATIENT TOLERATED WELL. IV INFUSING WELL. NO SIGNS OF DISTRESS ON 2L NC.
--- NOTE | 2018-07-13 23:47 | NUR ---
CLEANED AND REPOSITIONED PATIENT FOR COMFORT. PATIENT WISHES TO SLEEP. CALL LIGHT IN REACH.
[2018-07-14] VITALS: BP 136/78
--- NOTE | 2018-07-14 00:22 | NUR ---
PATIENT SLEEPING, VITALS STABLE ON 2L O2 NC, SAFETY PRECAUTIONS IN PLACE. WILL CONTINUE TO MONITOR.
[2018-07-14] MEDS: Z-GUARD PASTE TP SCH ×2 (02:11→13:09)
--- NOTE | 2018-07-14 03:09 | NUR ---
PATIENT SLEEPING. NO SIGNS OF DISTRESS ON 2L NC. SAFETY PRECAUTIONS IN PLACE. WILL CONTINUE TO MONITOR.
[2018-07-14 04:00] VITALS: BP 153/85
[2018-07-14] MEDS: DEXT 5% /NACL 0.9% 1,000 ML IV SCH (04:28)
--- NOTE | 2018-07-14 04:30 | NUR ---
ASSISTED FRUIT II FARMWORKER WITH CLEANING AND REPOSITIONING.
--- NOTE | 2018-07-14 05:40 | NUR ---
PATIENT SLEEPING, NO SIGNS OF DISTRESS ON 2L NC. SAFETY PRECAUTIONS IN PLACE. CALL LIGHT IN REACH. WILL CONTINUE TO MONITOR.
[2018-07-14] MEDS: LEVOTHYROXINE 0.1 MG, LEVOTHYROXINE 0.025 MG PO SCH ×2 (06:02)
[2018-07-14] MEDS: BUDESONIDE 0.5 MG/2 ML NEBU INH SCH ×2 (06:55→20:27)
--- NOTE | 2018-07-14 07:20 | NUR ---
RECEIVED PT FROM OWNER/PHOTOGRAPHER NURSE FOR CONTINUITY OF CARE. PT AWAKE, ALERT, ORIENTED X 4. NOTED APPARENT WHEEZES DURING RESPIRATIONS. Addendum: 07/14/18 at 1339 by Juarez Miller RN ADDITION TO THE NOTES ABOVE: PT HAS IV LINE ON THE RIGHT AC, 20 GA WITH D5NS AT 100ML/HR. 2 L O2 VIA NC IN PLACE. FALL PRECAUTION INITIATED, BED ALARM ACTIVATED, SIDE RAILS UP, CALL LIGHT WITHIN REACH OF PT. NO SIGNS OF DISTRESS NOTED, WILL MONITOR PT.
[2018-07-14 08:00] VITALS: BP 134/81
[2018-07-14] MEDS: DILTIAZEM 120 MG CAPER PO SCH (09:35)
[2018-07-14] MEDS: MULTIVITAMIN/MINERALS 1 TAB PO SCH (09:35)
[2018-07-14] MEDS: methylPREDNISolone SS 40 MG/ML VIAL IVP SCH ×2 (09:36→20:23)
[2018-07-14] MEDS: SODIUM CHLORIDE 1 GM TAB PO SCH (09:36)
--- NOTE | 2018-07-14 09:40 | NUR ---
PT'S IV WAS STOPPED AT THIS TIME.
[2018-07-14] MEDS: APIXABAN 2.5 MG TAB PO SCH ×2 (09:41→20:32)
--- NOTE | 2018-07-14 09:42 | NUR ---
PT IS AWAKE AND SEATED ON THE BED, VITAL SIGNS CHECKED AND BP IS 129/75, PULSE IS72, O2 SATURATION IS 97%, ORAL MEDICATIONS WERE GIVEN, ASPIRATION PRECAUTION INITIATED, PT TOLERATED THE MEDICATIONS, NO SIGN OF DISTRESS NOTED AND WILL MONITOR PT.
[2018-07-14 12:00] VITALS: BP 148/86
--- NOTE | 2018-07-14 12:40 | NUR ---
PT EATING LUNCH AT THIS TIME, VS TAKEN BP 148/86, T 97.9, P 81, RR 17, O2 98% AT 2L NC, DENIES ANY PAIN. WILL CONTINUE TO MONITOR PT.
--- NOTE | 2018-07-14 15:00 | NUR ---
PT ALERT AND AWAKE. GIVEN JOSEPH CARE, NOTED SOME EXCORIATION ON SACRAL AREA, REINFORCED WITH Z-GUARD AND OPTIFOAM DRESSING. PT TOLERATED THE ACTIVITY. DENIES PAIN AT THE MOMENT. NO SIGNS OF DISTRESS. WILL CONTINUE TO MONITOR PT.
--- NOTE | 2018-07-14 16:37 | NUR ---
BRITT CABRERA ALARM ADJUSTER OF ABILITY PATHWAYS CALLED (#[phone]), UPDATED HER WITH PT'S DISCHARGE PLAN. BRITT STATED THEY HAVE THEIR OWN PHYSICAL THERAPY IN THEIR FACILITY. INFORMED BRITT THAT THE PT STILL NEEDS TO BE EVALUATED BY OUR PHYSICAL THERAPY TOMORROW MORNING. PER BRITT, SHE WILL HAVE THEIR OWN CAREGIVER FROM THEIR FACILITY TO COME IN THE MORNING WHEN PHYSICAL THERAPIST COMES TO HELP WARM UP THE PT. INDUSTRIAL CLEANING TECHNICIAN QUAN NOTIFIED AND WAS GIVEN BRITT'S CONTACT #.
--- NOTE | 2018-07-14 17:15 | NUR ---
CALLED BRITT SRINIVASAN OF [facility] AT [phone], I DISCUSSED WITH HER REGARDING PATIENT'S DC PLANNING FOR HOME HEALTH WITH PT. SHE STATED THAT PATIENT IS BEING SEEN BY [facility] FOR PT. SHE ALSO PROVIDED ME OF THEIR CONTACT NUMBER [phone]. SPOKE TO JOMAR PARRA, DIRECTOR OF THE [facility] HOME HEALTH AND CONFIRMED WITH ME THAT THE PATIENT IS UNDER THEIR SERVICES. SHE PROVIDED ME OF THEIR FAX NUMBER TO SEND ORDERS. MADE HER AWARE THAT PHYSICAL THERAPY STILL HAVE TO EVALUATE THE PATIENT FOR TOMORROW AND WE WILL GO FROM THERE. SHE SAID SHE WILL WAIT FOR THE ORDERS TOMORROW.
[2018-07-14 17:24] VITALS: BP 134/72
--- NOTE | 2018-07-14 18:00 | NUR ---
PT IS EATING HIS DINNER NOW, ASSISTED.
--- NOTE | 2018-07-14 19:30 | NUR ---
PT ENDORSED TO COMPLIANCE REPRESENTATIVE DEALER NURSE FOR CONTINUITY OF CARE.
--- NOTE | 2018-07-14 19:31 | NUR ---
RECEIVED BEDSIDE REPORT FROM QUE COSTA RN. PATIENT IN STABLE CONDITION ON 2L O2 VIA NC. SAFETY PRECAUTIONS IN PLACE.
[2018-07-14 20:00] VITALS: BP 120/64
--- NOTE | 2018-07-14 20:20 | NUR ---
ADMINSTERED SCHEDULED MEDICATIONS. PATIENT TOLERATED WELL. RT AT BEDSIDE TO GIVE TREATMENT.
--- NOTE | 2018-07-14 23:40 | NUR ---
PATIENT SLEEPING. VITALS STABLE. NO SIGNS OF DISTRESS ON 2L O2 NC. SAFETY PRECAUTIONS IN PLACE. WILL CONTINUE TO MONITOR.
[2018-07-15] VITALS: BP 124/67
[2018-07-15] MEDS: Z-GUARD PASTE TP SCH ×2 (01:14→13:00)
--- NOTE | 2018-07-15 02:30 | NUR ---
PATIENT SLEEPING. NO SIGNS OF DISTRESS ON 2L NC. SAFETY PRECAUTIONS IN PLACE.
--- NOTE | 2018-07-15 04:30 | NUR ---
CLEANED AND REPOSITIONED FOR COMFORT, CHANGED COLOSTOMY BAG.
[2018-07-15] MEDS: LEVOTHYROXINE 0.1 MG, LEVOTHYROXINE 0.025 MG PO SCH ×2 (06:13)
--- NOTE | 2018-07-15 06:14 | NUR ---
ADMINISTERED SCHEDULED MEDICATIONS. PATIENT TOLERATED WELL. PATIENT SITTING UP IN BED WATCHING TV. NO SIGNS OF DISTRESS ON 2L NC.
[2018-07-15 06:16] LABS: ANION GAP 8.1 (8-16); CARBON DIOXIDE 30.7 mmol/L (21-32); CHLORIDE 102 mmol/L (98-107); CREATININE 0.8 mg/dL (0.7-1.3); GLUCOSE 116 mg/dL (74-106); POTASSIUM 4.8 mmol/L (3.5-5.1); SODIUM SERUM 136 mmol/L (136-145); UREA NITROGEN, BLOOD 24 mg/dL (7-18)
--- NOTE | 2018-07-15 07:30 | NUR ---
RECEIVED PT FROM REHAB DIRECTOR NURSE FOR CONTINUITY OF CARE. PT AWAKE, CONVERSANT, TELEVISION ON, LYING IN BED, AND ON 2L O2 VIA NC. HAS RIGHT FOREARM IV 20GA SALINE LOCK. DENIES PAIN AT THIS TIME. BED IN LOW POSITION, SIDE RAILS UP, AND CALL LIGHT WITHIN REACH. WILL CONTINUE TO MONITOR PT.
--- NOTE | 2018-07-15 07:30 | NUR ---
GAVE BEDSIDE REPORT TO DAY SHIFT RN, LIZBET. PATIENT IS IN STABLE CONDITION SHOWING NO SIGNS OF DISTRESS ON 2L NC. SAFETY PRECAUTIONS ARE IN PLACE.
[2018-07-15 08:00] VITALS: BP 143/81
[2018-07-15] MEDS: BUDESONIDE 0.5 MG/2 ML NEBU INH SCH (08:27)
[2018-07-15] MEDS: DILTIAZEM 120 MG CAPER PO SCH (09:01)
[2018-07-15] MEDS: MULTIVITAMIN/MINERALS 1 TAB PO SCH (09:01)
[2018-07-15] MEDS: SODIUM CHLORIDE 1 GM TAB PO SCH (09:02)
[2018-07-15] MEDS: methylPREDNISolone SS 40 MG/ML VIAL IVP SCH (09:03)
[2018-07-15] MEDS: APIXABAN 2.5 MG TAB PO SCH (09:08)
--- NOTE | 2018-07-15 10:00 | NUR ---
PT WAS REPOSITIONED AND CLEANED NOW.
--- NOTE | 2018-07-15 13:58 | NUR ---
Teletype Operator Note: Late entry for 07/14/18: Per Quality Control Inspector Heading from [facility] (intermediate care facility) Anuja George patient has been living at facility before 2006, she does not recall exact year. Patient's pcp is Dr. Gonsalez and Dr. Gonsalez follows up with patient at facility once a month. Patient has a brother named Sumit Paulino . Patient has a hospital bed, wheelchair, walker, home O2, and nebulizer at [facility]. Patient's community case manager at [facility] is Drea Friend . Deidre Barnes's transportation is available 08/09. Prior to hospital admission patient was receiving physical therapy at [facility]. [facility]. I called and spoke with Drea Friend. She reported she does not have any questions or concerns at this time. Hourly Shift Manager and/or Senior Project Engineer will follow up as needed.
--- NOTE | 2018-07-15 15:14 | NUR ---
07/15/18 RD INITIAL ASSESSMENT COMPLETED PLEASE REFER TO NUTRITION ASSESSMENT UNDER CARE ACTIVITY FOR ESTIMATED NUTRITIONAL NEEDS. 1. CONTINUE CARDIAC DIET TOLERATED 2. PROVIDE CARDIAC DIET EDUCATION WHEN APPROPRIATE 3. RD TO FOLLOW-UP 3-5 DAYS, MODERATE RISK ANTONIA PAGAN RD
[2018-07-15 16:00] VITALS: BP 129/65
--- NOTE | 2018-07-15 16:15 | NUR ---
PT WAS REPOSITIONED AND SACRAL EXCORIATION WAS ASSESSED AND MEDICATION WAS APPLIED, PICTURE WAS TAKEN AND WAS ATTACHED TO CHART.
--- NOTE | 2018-07-15 16:36 | NUR ---
CALLED [facility], SPOKE TO BRAYDEN AT [phone]. CONFIRMED THAT SHE RECEIVED THE FAXED CLINICALS AT [phone].
--- NOTE | 2018-07-15 16:37 | NUR ---
PER [facility] [employer] CREW MEMBER, BRITT SRINIVASAN, MIXING MACHINE ATTENDANT WILL BE AT 1800. PRIMARY RN AND CHARGE NURSE MADE AWARE.
--- NOTE | 2018-07-15 18:15 | NUR ---
DISCHARGED WITH [facility] VIA WHEELCHAIR, IV LINE AND ARM BAND REMOVED, TEACHINGS AND INSTRUCTIONS GIVEN TO PT,AND WAS INFORMED THAT HE WILL HAVE HOME HEALTH WITH [facility]. IS [phone] FOR PT AND PT VERBALIZED UNDERSTANDING. PT IS STABLE AT THIS TIME.
== END 2018-07-15 18:15 | DRG 189 ==
LOC: MED 09:15 → MTU 12:43
PROVIDERS: ADMIT Preventive Medicine Preventive Medicine/Occupational Environmental Medicine; ATTEND Preventive Medicine Preventive Medicine/Occupational Environmental Medicine
DX: J96.00 Acute respiratory failure, unspecified whether with hypoxia or hypercapnia (principal); J44.1 Chronic obstructive pulmonary disease with (acute) exacerbation; I48.2 Chronic atrial fibrillation; I25.10 Atherosclerotic heart disease of native coronary artery without angina pectoris; I11.9 Hypertensive heart disease without heart failure; J06.9 Acute upper respiratory infection, unspecified; E11.65 Type 2 diabetes mellitus with hyperglycemia; E03.9 Hypothyroidism, unspecified; R79.89 Other specified abnormal findings of blood chemistry; T38.0X5A Adverse effect of glucocorticoids and synthetic analogues, initial encounter; Y92.89 Other specified places as the place of occurrence of the external cause
CPT/HCPCS: 36415; 36600; 71045; 80048; 80053; 81001; 82803; 83605; 83735; 83880; 84100; 84484; 85025; 86140; 87040; 87081; 87086; 93005; 94640; 96360; 96372; 97116; 97161-GP; 97530; 99285; J0696; J1100; J2001; J2550; J2920; J7042; J7613; J7620; J7626; Q0092

== ENCOUNTER 2021-03-17 17:45 | Inpatient (IN) | payer OTHER, MEDICAID, SELFPAY ==
[~2021-03-17] VITALS: Ht 165.1 cm; Wt 61.7 kg
[2021-03-17 17:45] VITALS: BP 135/83
[~2021-03-17 17:45] MED LIST changes: -ATRN INH; -BEN50 PO; +BENZ150C2 PO; +BUDE1AER IH; -CLIN-178 PO; +DIPH25TA53 PO; -FURO-570 PO; -LACT10CA PO; -LEVO750T2 PO; +MAGN400S60 PO; +MONT10TA35 PO; +MULT-1869 PO; -MULT15LI1 GT; +PROM118S5 PO; +SODI1TAB1 PO; +TAMS0.4C97 PO; +VANC750F IV; +[UNRECOGNIZED DRUG - CODE] PO; -[UNRECOGNIZED DRUG - CODE] PO; -[UNRECOGNIZED DRUG - CODE] PO; +[UNRECOGNIZED DRUG - CODE] TP
--- NOTE | 2021-03-17 17:45 | NUR ---
75 y/o M DONALDA from [facility] for ER evaluation of abnormal labs K+ 6.4 and CXR showing fluid overload. EMS states loss of fluid and PO appetite x 1 day. GCS 9 baseline - nonverbal. Lung sounds R side crackles. Colostomy bag in place; pt adult diapered. Skin hot/dry, rectal temperature 101.3. Pt placed onto environmental associate HR 160; SpO2 98% on 4L via NC; RR 24. Cooling measures in place. Bed locked in lowest position, side rails x 2. PMH: DVT, COPD, colostomy, hypertension, hyperlipidemia, CAD, diabetes, developmental delay nonverbal at baseline, hypothyroidism Meds: see list NKDA
--- NOTE | 2021-03-17 17:48 | NUR ---
YUN BURRIS VIA NIKHIL IBARRA, TO BED 03.
[2021-03-17] MEDS ORDERED: VANCOMYCIN 1,000 MG in DEXTROSE 5% 250 ML IV ONE (18:05)
[2021-03-17] MEDS ORDERED: PIPERACILLIN/TAZOBACTAM 3.375 GM in DEXT 5% MINI-BAG PLUS 50 ML IV ONE (18:05)
[2021-03-17] MEDS ORDERED: ACETAMINOPHEN 650 MG SUPP RC ONE (18:05)
[2021-03-17] MEDS ORDERED: MAG SULF 2000 MG/WATER PREMIX 50 ML IV ONE (18:15)
--- NOTE | 2021-03-17 18:15 | NUR ---
BLOOD WORK COLLECTED HANDED TO CPT
[2021-03-17] MEDS ORDERED: FUROSEMIDE 20 MG/2 ML VIAL IVP ONE (18:20)
[2021-03-17 18:24] LABS: HEMATOCRIT 32.9 % (36-52); HEMOGLOBIN 10.7 g/dL (12.0-18.0); MEAN CORPUSCULAR HEMOGLOBIN 28 pg (27-31); MEAN CORPUSCULAR HGB CONC 32 g/dL (33-37); MEAN CORPUSCULAR VOLUME 85.5 fL (80-94); RED BLOOD CELL COUNT(AUTO) 3.85 MIL/uL (4.20-6.10); WHITE BLOOD COUNT (AUTO) 10.4 K/uL (4.8-10.8)
--- NOTE | 2021-03-17 18:27 | NUR ---
RAD at bedside
--- NOTE | 2021-03-17 18:30 | NUR ---
RT at bedside
[2021-03-17] MEDS: NACL 0.9% 1,000 ML IV SCH ×2 (18:33→22:04)
[2021-03-17] MEDS ORDERED: PIPERACILLIN/TAZOBACTAM 3.375 GM VIAL IV ONE (18:37)
[2021-03-17 18:45] LABS: PLATELET COUNT (AUTO) 855 K/uL (140-450)
[2021-03-17 19:01] LABS: PROTHROMBIN TIME 11.5 secs (10.8-13.4)
--- NOTE | 2021-03-17 19:25 | NUR ---
Report and transfer of care endorsed to KATHERIN Lou.
--- NOTE | 2021-03-17 19:25 | NUR ---
PT REPORT RECEIVED FROM KATHERIN BAKER FOR CONTINUITY OF PT CARE AT THIS TIME.
--- NOTE | 2021-03-17 19:27 | NUR ---
PT LAYING SUPINE IN BED W BED LOCKED IN LOWEST POSITION W X2 SIDERAIL SUP FOR PT SAFETY. PT GCS 12 PT AWAKE/ALERT, OBEDIENT, MUMBLES WORDS UNABLE TO COMPREHEND. PT SHAKES HEAD FOR YES OR NO, PT DENIES ANY PAIN. PT CONNECTED TO MONITOR W HR FLUCTUATING 158-170, 27RR W RETRACTIONS, ERMD MADE AWARE OF PT STATUS. PT HAS R SIDED COLOSTOMY BAG. PT HAS PATENT IVs TO L AC AND R HAND. WILL CONTINUE TO MONITOR.
--- NOTE | 2021-03-17 19:35 | NUR ---
PT BP 92/65, ERMD MADE AWARE.
[2021-03-17 19:36] LABS: ALBUMIN 2.5 g/dL (3.4-5.0); ANION GAP 19.9 (8-16); ASPARTATE AMINOTRANSFERASE 40 U/L (15-37); CARBON DIOXIDE 18.5 mmol/L (21-32); CHLORIDE 120 mmol/L (98-107); CREATININE 2.8 mg/dL (0.6-1.3); GLUCOSE 88 mg/dL (74-106); SODIUM SERUM 152 mmol/L (136-145); TOTAL BILIRUBIN 0.5 mg/dL (0.0-1.0)
[2021-03-17 19:39] LABS: POTASSIUM 6.4 mmol/L (3.5-5.1); UREA NITROGEN, BLOOD 73 mg/dL (7-18)
[2021-03-17] MEDS ORDERED: NOREPINEPHRINE 4 MG in DEXTROSE 5% 250 ML IV ONE (19:55)
[2021-03-17] MEDS ORDERED: DEXTROSE 50% 50 ML SYR IVP ONE ×2 (19:55)
[2021-03-17] MEDS ORDERED: INSULIN REGULAR, HUMAN 100 UNIT/ML VIAL IVP ONE (19:55)
--- NOTE | 2021-03-17 20:00 | NUR ---
[facility].
[2021-03-17] MEDS ORDERED: VANCOMYCIN 1,000 MG VIAL ONE (20:03)
[2021-03-17 20:08] LABS: BASOPHILS % (MANUAL) 0 % (0-2); EOSINOPHILS % (MANUAL) 0 % (0-4); LYMPHOCYTES % (MANUAL) 27 % (20-46); MONOCYTES % (MANUAL) 12 % (5-12)
[2021-03-17 20:09] LABS: BUFFY COAT SMEAR PREP N
--- NOTE | 2021-03-17 20:11 | NUR ---
14FR NICOLE W URINE BAG INSRTED BY KATHERIN MG. NO URINE OUPUT AT THIS TIME.
--- NOTE | 2021-03-17 20:20 | NUR ---
30 CC CLEAR YELLOW URINE OUTPUT AT THIS TIME, SAMPLE SENT TO LAB.
[2021-03-17] MEDS ORDERED: LACTULOSE 20 GM/30 ML UDC PR ONE (21:05)
--- NOTE | 2021-03-17 21:05 | NUR ---
PT HAS COLOSTOMY BAG. PER ERMD HOLD LACTULOSE RECTAL FOR TONIGHT.
--- NOTE | 2021-03-17 21:50 | NUR ---
PT HR FLUCTUATING 130s-140s. ERMD MADE AWARE.
[2021-03-17] MEDS ORDERED: LACTULOSE 20 GM/30 ML UDC ONE (22:49)
[2021-03-17] MEDS ORDERED: MAGNESIUM HYDROXIDE 2400 MG/30 ML UDC PO PRN (22:50)
[2021-03-17] MEDS ORDERED: FLUOCINONIDE 0.05% OINT 30 GM TUBE TP PRN (22:50)
[2021-03-17] MEDS ORDERED: guaiFENesin DM 200/20 MG-10 ML 10 ML UDC PO PRN (22:50)
[2021-03-17] MEDS ORDERED: PROMETHAZINE DM 6.25/15MG-5ML ORASYR PO PRN (22:50)
[2021-03-17] MEDS ORDERED: ONDANSETRON 4 MG/2 ML VIAL IVP PRN (22:55)
[2021-03-17] MEDS ORDERED: ACETAMINOPHEN 325 MG TAB PO PRN (22:55)
[2021-03-17] MEDS ORDERED: HYDROcodone/APAP 5/325 MG 1 TAB TAB PO PRN (22:55)
[2021-03-17] MEDS ORDERED: SODIUM ZIRCONIUM CYCLOSILICATE 10 GM POWD.PACK PO SCH (23:05)
--- NOTE | 2021-03-17 23:13 | NUR ---
PT REPOSITIONED FOR COMFORT. PROVIDED W CLEAN LINENS. NOSIGNS OF PAIN. CONNECTED TO MONITOR. WILL CONTINUE TO MONITOR.
[2021-03-17 23:50] LABS: ANION GAP 19.6 (8-16); CARBON DIOXIDE 14.8 mmol/L (21-32); CHLORIDE 122 mmol/L (98-107); CREATININE 2.6 mg/dL (0.6-1.3); GLUCOSE 140 mg/dL (74-106); POTASSIUM 4.4 mmol/L (3.5-5.1); SODIUM SERUM 152 mmol/L (136-145)
[2021-03-17 23:51] LABS: UREA NITROGEN, BLOOD 64 mg/dL (7-18)
[2021-03-17] MEDS: DEXT 5% / NACL 0.45% 1,000 ML IV SCH (23:54)
--- NOTE | 2021-03-18 00:07 | NUR ---
CONTACTED INREAGRDS TO PT HR OF 150s-160s and bp 94/54. PER DR. MCLEAN TO GIVE CARDIZEM AND 250ML NS BOLUS IF BP GOES LOWER.
[2021-03-18 00:18] LABS: APPEARANCE,URINE HAZY (CLEAR); BILIRUBIN,URINE NEGATIVE (NEGATIVE); BLOOD, URINE 3+ (NEGATIVE); COLOR,URINE YELLOW (YELLOW); LEUKOCYTE ESTERASE ,URINE TRACE (NEGATIVE); NITRITE, URINE NEGATIVE (NEGATIVE); PH,URINE 5.5 (5.0-9.0); UGLUCOSE NEGATIVE (NEGATIVE)
[2021-03-18] MEDS: DILTIAZEM 25 MG/5 ML VIAL IVP PRN ×3 (00:34→06:32)
[2021-03-18 00:52] LABS: WBC,URINE 0-5 /HPF (0-5)
--- NOTE | 2021-03-18 01:54 | NUR ---
CPNTACTED DR MCLEAN INREGARDS TO NM VS OF 146HR. NEW ORDERS FOR CARDIZEM RECEIVED. CARDIZEM 20MG IVP Q6H FOR HR>120. PER DR[address] MCLEAN TO ALSO KEEP THE CARDIZEM 10MG PRN ORDER.
--- NOTE | 2021-03-18 03:04 | NUR ---
PT BP AT86/41, 250ML BOLUS STARTED PER ORDER.
[2021-03-18] MEDS ORDERED: NACL 0.9% 250 ML IV SCH (03:05)
--- NOTE | 2021-03-18 03:51 | NUR ---
PT UNABLE TO SWALLOW WATER EFFICIENTLY AT THIS TIME. LOKELMA MEDICATION HELD, POTASSIUM 4.4.
--- NOTE | 2021-03-18 03:57 | NUR ---
500 CC OF YELLOW URINE EMPTIED FROM PT NICOLE.
[2021-03-18] MEDS ORDERED: PIPERACILLIN/TAZOBACTAM 3.375 GM VIAL IV ONE ×3 (05:45→21:29)
[2021-03-18] MEDS: PIPERACILLIN/TAZOBACTAM 3.375 GM in DEXTROSE 5% 50 ML IV SCH ×3 (06:06→21:44)
--- NOTE | 2021-03-18 06:07 | NUR ---
PT AWAKE, ALERT, AOX3. DENIES ANY PAIN. WILL CONTINUE TO MONITOR. .
[2021-03-18] MEDS: LEVOTHYROXINE 0.025 MG TAB PO SCH (06:30)
--- NOTE | 2021-03-18 06:35 | NUR ---
[place] in ED - 03/18/21 at 0638 by DARRELLK PT HR FLUCTUATING BETWEEN 128-140s. PT MEDICATED FOR HR.
--- NOTE | 2021-03-18 06:35 | NUR ---
PT DESAT TO 88% PLACED ON 4L NC. PT HR FLUCTUATING BETWEEN 128-140s. PT MEDICATED FOR HR.
--- NOTE | 2021-03-18 06:51 | NUR ---
PT L ARM VERY PURPLE DISCOLORATION FROM ELBOW DOWN, CHARGE NURSE KARMEN MADE AWARE. BP CUFF REMOVED, PLACED ON OTHER ARM. BOTH ARMS VERY REDSISH PURPLE SINCE ARRIVAL PER DAY SHIFT. WILL CONTINUE TO MONITOR.
--- NOTE | 2021-03-18 06:57 | NUR ---
US AT BEDSIDE.
--- NOTE | 2021-03-18 07:00 | NUR ---
CALLED INREGARDS TO PATIENT'S ARM DISCOLORATION AND BLOOD PRESSURE OF 93/55. AWAITING CALL BACK .
--- NOTE | 2021-03-18 07:16 | NUR ---
Pt report given to KATHERIN GAVIRIA. Transfer of care at this time.
--- NOTE | 2021-03-18 07:33 | NUR ---
SATURATION 87% ON SUPPLEMENTAL OXYGEN AT 4 LPM VIA NC POST HHN THERAPY INCREASED FIO2 TO 7 LPM VIA CURAPLEX NC KHADRA/CELLOPHANE CASTING MACHINE REPAIRER NOTIFIED
[2021-03-18] MEDS: DEXT 5% / NACL 0.45% 1,000 ML IV SCH (07:40)
[2021-03-18] MEDS: ALBUTEROL 0.083% 2.5 MG/3 ML NEBU INH PRN (07:42)
[2021-03-18] MEDS: BUDESONIDE 0.5 MG/2 ML NEBU INH SCH ×2 (07:42→19:43)
[2021-03-18] MEDS: DILTIAZEM 120 MG CAPER PO SCH (09:00)
[2021-03-18] MEDS ORDERED: NON-FORMULARY ITEM (Budesonide/Formoterol Fumarate* (Symbicort 160-4.5 Mcg Inhaler*) 2 PUF IH SCH (09:00)
[2021-03-18] MEDS ORDERED: MULTIVITAMIN 1 TAB PO SCH (09:00)
[2021-03-18] MEDS: TAMSULOSIN 0.4 MG CAP PO SCH (09:00)
[2021-03-18] MEDS ORDERED: NON-FORMULARY ITEM (Multivit-Min/Iron Fum/Folic AC (Multi-Vitamin-Minerals Tablet) 1 TAB) PO SCH (09:00)
[2021-03-18] MEDS: THEOPHYLLINE 300 MG TABER PO SCH ×2 (09:00→21:00)
[2021-03-18] MEDS ORDERED: NON-FORMULARY ITEM (Levothyroxine Sodium* (Synthroid*) 0.125 MG) PO SCH (09:00)
[2021-03-18] MEDS ORDERED: THEOPHYLLINE 300 MG TABER PO SCH (09:00)
[2021-03-18] MEDS: APIXABAN 2.5 MG TAB PO SCH ×2 (09:00→21:43)
[2021-03-18] MEDS: MULTIVITAMIN/MINERALS 1 TAB PO SCH (09:00)
[2021-03-18] MEDS ORDERED: NON-FORMULARY ITEM (Benzonatate 1 CAP) PO SCH (09:00)
[2021-03-18] MEDS ORDERED: SODIUM CHLORIDE 2 GM PO SCH (09:00)
[2021-03-18] MEDS ORDERED: VANCOMYCIN IV SCH (09:00)
[2021-03-18] MEDS ORDERED: [UNRECOGNIZED DRUG - OTHER] IV SCH (09:00)
[2021-03-18] MEDS ORDERED: SOD CHLORIDE IV SCH (09:00)
[2021-03-18] MEDS: MONTELUKAST SODIUM 10 MG TAB PO SCH (09:00)
[2021-03-18 09:01] LABS: BASOPHILS # (AUTO) 0.1 K/uL (0.00-0.22); BASOPHILS % (AUTO) 0.7 % (0.0-2.0); EOSINOPHILS # (AUTO) 0.1 K/uL (0-0.4); EOSINOPHILS % (AUTO) 0.3 % (0.0-4.0); HEMATOCRIT 30.7 % (36-52); HEMOGLOBIN 9.6 g/dL (12.0-18.0); LYMPHOCYTES # (AUTO) 1.9 K/uL (2.0-11.5); LYMPHOCYTES % (AUTO) 11.7 % (20.5-51.1); MEAN CORPUSCULAR HEMOGLOBIN 28 pg (27-31); MEAN CORPUSCULAR HGB CONC 31 g/dL (33-37); MEAN CORPUSCULAR VOLUME 87.9 fL (80-94); MONOCYTES # (AUTO) 0.6 K/uL (0.8-1.0); MONOCYTES % (AUTO) 3.5 % (1.7-9.3); NEUTROPHILS # (AUTO) 13.5 K/uL (1.8-7.7); NEUTROPHILS % (AUTO) 83.8 % (42.2-75.2); PLATELET COUNT (AUTO) 610 K/uL (140-450); RED BLOOD CELL COUNT(AUTO) 3.49 MIL/uL (4.20-6.10); RED CELL DISTRIBUTION WIDTH 18.7 % (11.6-13.7); WHITE BLOOD COUNT (AUTO) 16.1 K/uL (4.8-10.8)
--- NOTE | 2021-03-18 09:40 | NUR ---
SPOKE TO DR MCLEAN REGARDING AFIB, NEW ORDERS NOTED.
[2021-03-18] MEDS ORDERED: METOPROLOL 5 MG/5 ML VIAL ONE (09:50)
[2021-03-18] MEDS ORDERED: CRUSHER, PILL MC ONE (09:51)
[2021-03-18] MEDS ORDERED: NON-FORMULARY ITEM (Benzonatate 1 CAP) PO PRN (10:20)
[2021-03-18] MEDS: METOPROLOL 5 MG/5 ML VIAL IV PRN ×2 (10:22→23:37)
[2021-03-18] MEDS ORDERED: BENZONATATE 100 MG CAPLF PO PRN (10:30)
[2021-03-18] MEDS ORDERED: NOREPINEPHRINE 4 MG/4 ML VIAL IV ONE (12:33)
--- NOTE | 2021-03-18 12:38 | NUR ---
dr ott bedside to start central line
--- NOTE | 2021-03-18 12:51 | NUR ---
dr mendiola here to exam pt.
[2021-03-18] MEDS ORDERED: LIDOCAINE MPF 1% 5 ML ONE (13:03)
--- NOTE | 2021-03-18 13:36 | NUR ---
R FEMORAL CENTRAL LINE, TLC INSERTED BY DR LEAL AT THIS TIME. INTACT, PATENT, GOOD BLOOD RETURN
[2021-03-18] MEDS: NOREPINEPHRINE 8 MG in DEXTROSE 5% 250 ML IV PRN (13:38)
[2021-03-18] MEDS: SODIUM BICARBONATE 8.4% 100 MEQ in DEXTROSE 5% 1,000 ML IV SCH (15:10)
[2021-03-18 16:06] LABS: CHLORIDE 121 mmol/L (98-107); CREATININE 2.5 mg/dL (0.6-1.3); GLUCOSE 133 mg/dL (74-106); SODIUM SERUM 154 mmol/L (136-145)
[2021-03-18 16:14] LABS: UREA NITROGEN, BLOOD 61 mg/dL (7-18)
--- NOTE | 2021-03-18 17:26 | NUR ---
PATIENT HAS BEEN SCREENED AND CATEGORIZED MODERATE NUTRITION RISK. PATIENT WILL BE SEEN WITHIN 3-5 DAYS OF ADMISSION. KARL ROMERO RD
[2021-03-18] MEDS ORDERED: VANCOMYCIN PER PHARMACY MC PRN (18:00)
--- NOTE | 2021-03-18 18:00 | NUR ---
ID AT BEDSIDE MADE AWARE OF REDNESS TO BILATERAL ARMS.
--- NOTE | 2021-03-18 19:25 | NUR ---
REPORT RECEIVED FROM KATHERIN PIERSON FOR CONTINUITY OF PT CARE AT THIS TIME.
--- NOTE | 2021-03-18 19:33 | NUR ---
PT LAYING IN BED LOCKED INLOWEST POSITION W X2 SIDERAILS UP FOR PT SAFETY. PT IN GOWN W BLANKET ON. PT AWAKE AND ALERT, PT DENIES ANY PAIN. PT VSS, PT ON 4L NC W BREATHING EVEN AND UNLABORED. PT HAS NICOLE DRAINING TO GRAVITIY. PT NOREPI RUNNING AT 12 MCG/KG/MIN AND BICRAB FLUIDS RUNNING AT 100ML/HR ORDERED. NO SIGNS OF PAIN. PT CONNECTED TO MONITOR, WILL COTNINUE TO MONITOR.
--- NOTE | 2021-03-18 21:31 | NUR ---
NO ANIBAL-DUR AVAILABLE. [facility] CONTACTED FOR MEDICATION.
--- NOTE | 2021-03-18 21:47 | NUR ---
GOLDIE NOT AVAILABLE IN HOSPITAL, CONTACTED TO MAKE AWARE. AWAITING CALL BACK.
--- NOTE | 2021-03-18 22:26 | NUR ---
[facility] PER DR. MCLEAN TO HOLD MEDICATION FOR TONIGHT. NO OTHER ORDERS AT THIS TIME.
--- NOTE | 2021-03-18 23:43 | NUR ---
200 CC CLEAR YELLOW URINE EMPTIED FROM NICOLE BAG.
--- NOTE | 2021-03-19 00:09 | NUR ---
REPOSITIONED PT. PLACED PILLOW UNDER PT R SIDE FOR POSITIONING CHANGE TO L.
[2021-03-19] MEDS ORDERED: NOREPINEPHRINE 4 MG/4 ML VIAL IV ONE (01:51)
[2021-03-19] MEDS: NOREPINEPHRINE 8 MG in DEXTROSE 5% 250 ML IV PRN (02:07)
[2021-03-19] MEDS: DILTIAZEM 25 MG/5 ML VIAL IVP PRN (02:18)
--- NOTE | 2021-03-19 02:18 | NUR ---
PRT HR FLUCTUATING BETWEEN [phone]. MEDICATED W PRN CARDIZEM PT HR NOW FLUCTUATING [phone].
--- NOTE | 2021-03-19 03:15 | NUR ---
PT LAYING IN BED REPOSITIONED TO L SIDE W PILLOW UNDER RIGHT SIDE. VSS. BICARB RUNNING W 235ML VTBI AT 100ML/HR, LEVO RUNNING AT 12MCG/MIN. BREATHING EVEN AND UNLABORED. CONNECTED TO MONITOR, WILL CONTINUE TO MONITOR.
--- NOTE | 2021-03-19 04:52 | NUR ---
ONGOING BL ARMS RED/PURPLE WARM, SWOLLEN , AND SENSITIVE TO TOUCH. IV CATHS D/C. ARMS POSITIONED ON PILLOWS FOR COMFORT.
--- NOTE | 2021-03-19 04:57 | NUR ---
PT COLOSTOMY BAG EMPTIED. PT REPOSITIONED.
[2021-03-19] MEDS ORDERED: PIPERACILLIN/TAZOBACTAM 3.375 GM VIAL IV ONE ×3 (05:16→23:53)
--- NOTE | 2021-03-19 05:35 | NUR ---
SODIUM BICARB IN 5% DEXTROSE FLUIDS BAG COMPLETED AT THIS TIME. 1L INFUSED.
[2021-03-19] MEDS: PIPERACILLIN/TAZOBACTAM 3.375 GM in DEXTROSE 5% 50 ML IV SCH ×3 (05:43→22:00)
[2021-03-19] MEDS ORDERED: SODIUM BICARBONATE 8.4% PFS 50 MEQ/50 ML SYR IVP ONE (06:22)
[2021-03-19] MEDS: SODIUM BICARBONATE 8.4% 100 MEQ in DEXTROSE 5% 1,000 ML IV SCH ×2 (06:40→18:03)
--- NOTE | 2021-03-19 06:56 | NUR ---
PT WILL NOT CLOSE MOUTH TO ZIP WATER. NOT SWALLOWING WATER, PO SYNTHROID HELD AT THIS TIME. VSS.
--- NOTE | 2021-03-19 07:00 | NUR ---
LAB AT BEDSIDE.
[2021-03-19] MEDS: BUDESONIDE 0.5 MG/2 ML NEBU INH SCH ×2 (07:10→19:30)
[2021-03-19 07:14] LABS: BASOPHILS # (AUTO) 0.1 K/uL (0.00-0.22); BASOPHILS % (AUTO) 0.4 % (0.0-2.0); EOSINOPHILS # (AUTO) 0.3 K/uL (0-0.4); EOSINOPHILS % (AUTO) 1.4 % (0.0-4.0); HEMATOCRIT 34.3 % (36-52); HEMOGLOBIN 10.7 g/dL (12.0-18.0); LYMPHOCYTES # (AUTO) 1.7 K/uL (2.0-11.5); LYMPHOCYTES % (AUTO) 9.7 % (20.5-51.1); MEAN CORPUSCULAR HEMOGLOBIN 27 pg (27-31); MEAN CORPUSCULAR HGB CONC 31 g/dL (33-37); MONOCYTES # (AUTO) 1.1 K/uL (0.8-1.0); MONOCYTES % (AUTO) 6.3 % (1.7-9.3); NEUTROPHILS # (AUTO) 14.4 K/uL (1.8-7.7); NEUTROPHILS % (AUTO) 82.2 % (42.2-75.2); PLATELET COUNT (AUTO) 666 K/uL (140-450); RED BLOOD CELL COUNT(AUTO) 3.99 MIL/uL (4.20-6.10); RED CELL DISTRIBUTION WIDTH 18.6 % (11.6-13.7); WHITE BLOOD COUNT (AUTO) 17.5 K/uL (4.8-10.8)
--- NOTE | 2021-03-19 07:33 | NUR ---
Pt report given to KATHERIN LAWRENCE. Transfer of care at this time.
--- NOTE | 2021-03-19 07:34 | NUR ---
RECEIVED REPORT FROM KATHERIN VALENCIA. TRANSFER OF CARE AT THIS TIME.
[2021-03-19] MEDS: LEVOTHYROXINE 0.025 MG TAB PO SCH (07:41)
[2021-03-19 07:51] LABS: CHLORIDE 120 mmol/L (98-107); CREATININE 2.8 mg/dL (0.6-1.3); GLUCOSE 154 mg/dL (74-106); MAGNESIUM 2.2 mg/dL (1.8-2.4); PHOSPHORUS 5.7 mg/dL (2.5-4.9); POTASSIUM 4.4 mmol/L (3.5-5.1); SODIUM SERUM 153 mmol/L (136-145)
--- NOTE | 2021-03-19 08:00 | NUR ---
PT RESTING IN BED, LEVO AT 22MCG, BICARB AT 100 TO RIGHT FEMORAL VSS, WILL CONTINUE TO MONITOR.
[2021-03-19 08:05] LABS: ANION GAP 19.2 (8-16); CARBON DIOXIDE 18.2 mmol/L (21-32)
[2021-03-19 08:56] LABS: UREA NITROGEN, BLOOD 63 mg/dL (7-18)
[2021-03-19] MEDS: ALBUTEROL 0.083% 2.5 MG/3 ML NEBU INH PRN (09:18)
[2021-03-19] MEDS: DILTIAZEM 120 MG CAPER PO SCH (09:55)
[2021-03-19] MEDS: APIXABAN 2.5 MG TAB PO SCH ×2 (09:55→21:00)
[2021-03-19] MEDS: MONTELUKAST SODIUM 10 MG TAB PO SCH (09:56)
[2021-03-19] MEDS: TAMSULOSIN 0.4 MG CAP PO SCH (09:56)
[2021-03-19] MEDS: THEOPHYLLINE 300 MG TABER PO SCH ×2 (09:56→21:00)
[2021-03-19] MEDS ORDERED: VANCOMYCIN 750 MG in DEXTROSE 5% 250 ML IV SCH (10:00)
[2021-03-19] MEDS: MULTIVITAMIN/MINERALS 1 TAB PO SCH (10:15)
--- NOTE | 2021-03-19 10:35 | NUR ---
PT REPOSITIONED IN BED TO RIGHT SIDE, VSS, WILL CONTINUE TO MONITOR.
--- NOTE | 2021-03-19 10:52 | NUR ---
PT BP 52/31 LEVO TITRATED UP TO 24MCG. WILL CONTINUE TO MONITOR.
--- NOTE | 2021-03-19 12:13 | NUR ---
PT REPOSITIONED IN BED SUPINE, VSS, WILL CONTINUE TO MONITOR.
--- NOTE | 2021-03-19 12:23 | NUR ---
PT SPO2 86% ON 4L NC TITRATED UP TO 5L NC. SPO2 99%. WILL CONTINUE TO MONITOR.
--- NOTE | 2021-03-19 14:16 | NUR ---
PT REPOSITIONED IN BED TO LEFT SIDE, VSS, WILL CONTINUE TO MONITOR.
--- NOTE | 2021-03-19 16:33 | NUR ---
PT REPOSITIONED IN BED TO RIGHT SIDE, VSS, WILL CONTINUE TO MONITOR.
[2021-03-19] MEDS: NOREPINEPHRINE 16 MG in DEXTROSE 5% 250 ML IV PRN (18:07)
--- NOTE | 2021-03-19 19:33 | NUR ---
ASSUMED PATIENT CARE, PT FOR ICU ADMISSION AWAITING FOR BED. ON ASSESMENT PT IS AWAKE, MOANS ON VERBAL APPROACH,WITH EFFORT TO VERBALIZE. PT RUNNING LEVOPHED AND SODIUM BICARBONATE THRU FEMORAL CENTRAL LINE.
--- NOTE | 2021-03-19 19:37 | NUR ---
GAVE REPORT TO KATHERIN ANGULO. TRANSFER OF CARE AT THIS TIME.
--- NOTE | 2021-03-19 23:43 | NUR ---
URINE BAG EMPTIED, PT POSITIONED UPRIGHT, AUDIBLE BILATERAL CRACKLES, MOUTH SUCTIONED.
[2021-03-19] MEDS ORDERED: DILTIAZEM 25 MG/5 ML VIAL IVP ONE (23:52)
[2021-03-20] VITALS (21 sets, daily range): BP systolic 89–150; BP diastolic 39–100
[2021-03-20] MEDS: SODIUM BICARBONATE 8.4% 100 MEQ in DEXTROSE 5% 1,000 ML IV SCH ×2 (00:10→11:10)
[2021-03-20] MEDS: DILTIAZEM 25 MG/5 ML VIAL IVP PRN (00:34)
--- NOTE | 2021-03-20 01:03 | NUR ---
REPORT CALLED TO KATIE PANDEY.
--- NOTE | 2021-03-20 01:50 | NUR ---
RECEIVED REPORT FROM ER CLOTH STRETCHER KATHERIN ANGULO. PT TRANSFERRED TO ICU-4 VIA ER RADAMANT. 75-M WITH DX OF HYPERKALEMIA, DEHYDRATION, AFIB, AND JONI. A&OX2. ABLE TO FOLLOW SIMPLE COMMANDS. CRACKLES PRESENT BILAT ON EXPIRATORY. RECEIVING 3L O2 VIA NC, WITH SATURATION @100%. ST ON THE MONITOR, WITH HR @146. RT FEMORAL TRIPLE LUMEN PRESENT, PATENT AND INTACT, INFUSING BICARB @ 100ML/HR AND LEVOPHED @16MCG/KG/MIN. F/C ALREADY IN PLACE DRAINING TO GRAVITY. COLOSTOMY PRESENT, WITH DRESSING BAG CLEAN AND INTACT. SKIN NOT INTACT, CELLULITIS WITH ABRASIONS TO UPPER AND LOWER EXTREMITIES; ABRASION TO SACRAL AREA; AND TWO OPEN WOUNDS TO TO LT LE. SAFETY MEASURES IN PLACE. WILL CONTINUE TO MONITOR.
--- NOTE | 2021-03-20 03:08 | NUR ---
PT RESTING COMFORTABLY ON 2LNC
[2021-03-20] MEDS ORDERED: SODIUM BICARBONATE 8.4% PFS 50 MEQ/50 ML SYR IVP ONE (03:24)
--- NOTE | 2021-03-20 04:00 | NUR ---
PT OBSERVED. NO SIGNS OF DISTRESS AT THIS TIME. CHEST RISE AND FALL PRESENT. WILL CONTINUE TO MONITOR.
[2021-03-20] MEDS ORDERED: NOREPINEPHRINE 4 MG/4 ML VIAL IV ONE (04:20)
[2021-03-20] MEDS: NOREPINEPHRINE 16 MG in DEXTROSE 5% 250 ML IV PRN (04:25)
[2021-03-20] MEDS ORDERED: PIPERACILLIN/TAZOBACTAM 3.375 GM VIAL IV ONE (04:59)
[2021-03-20] MEDS: PIPERACILLIN/TAZOBACTAM 3.375 GM in DEXTROSE 5% 50 ML IV SCH ×3 (05:00→21:05)
[2021-03-20] MEDS: LEVOTHYROXINE 0.025 MG TAB PO SCH (06:30)
[2021-03-20 06:54] LABS: ALBUMIN 1.6 g/dL (3.4-5.0); ANION GAP 16.3 (8-16); ASPARTATE AMINOTRANSFERASE 16 U/L (15-37); CARBON DIOXIDE 25.3 mmol/L (21-32); CHLORIDE 112 mmol/L (98-107); CREATININE 2.7 mg/dL (0.6-1.3); GLUCOSE 143 mg/dL (74-106); MAGNESIUM 1.9 mg/dL (1.8-2.4); PHOSPHORUS 4.4 mg/dL (2.5-4.9); POTASSIUM 3.6 mmol/L (3.5-5.1); SODIUM SERUM 150 mmol/L (136-145); TOTAL BILIRUBIN 0.5 mg/dL (0.0-1.0); UREA NITROGEN, BLOOD 53 mg/dL (7-18)
--- NOTE | 2021-03-20 07:20 | NUR ---
RECEIVED BEDSIDE REPORT FROM KATIE DEXTER RN FOR CONTINUITY OF CARE. PT SUPINE IN THE BED. AAOX2. PERRLA. ON 2L NC. ST ON THE MONITOR. PUREE DIET. COLOSTOMY IN PLACE, 1/2 FULL. R FEMORAL TLC CENTRAL LINE IN PLACE. INFUSING LEVOPHED AT 12 MCG/MIN, AND SODIUM BICARBONATE AT 100 ML/H. NICOLE -LEG BAG- IN PLACE DRAINING TO GRAVITY. LETHARGIC. SKIN NOT INTACT. SEE WOUND ASSESSMENT. CALL LIGHT WITHIN REACH. SAFETY PRECAUTIONS MET. STANDARD PRECAUTIONS IN PLACE. INITIAL ASSESSMENT COMPLETE. WILL CONTINUE TO CLOSELY MONITOR.
--- NOTE | 2021-03-20 07:24 | NUR ---
REPORT GIVEN TO DAYSHIFT RN FOR CONTINUITY OF CARE
[2021-03-20] MEDS: BUDESONIDE 0.5 MG/2 ML NEBU INH SCH ×2 (07:30→19:25)
--- NOTE | 2021-03-20 08:15 | NUR ---
SEEN AND EXAMINED BY DR LURICH.
--- NOTE | 2021-03-20 08:15 | NUR ---
XRAY AT BEDSIDE
[2021-03-20] MEDS: DILTIAZEM 120 MG CAPER PO SCH (09:09)
[2021-03-20] MEDS: APIXABAN 2.5 MG TAB PO SCH ×2 (09:09→21:06)
[2021-03-20] MEDS: THEOPHYLLINE 300 MG TABER PO SCH (09:10)
[2021-03-20] MEDS: TAMSULOSIN 0.4 MG CAP PO SCH (09:10)
[2021-03-20] MEDS: MONTELUKAST SODIUM 10 MG TAB PO SCH (09:10)
[2021-03-20] MEDS: MULTIVITAMIN/MINERALS 1 TAB PO SCH (09:11)
--- NOTE | 2021-03-20 10:00 | NUR ---
MICHELLE WOUND CARE NURSE AT BEDSIDE.
--- NOTE | 2021-03-20 10:05 | NUR ---
WOUND CARE EVALUATION NOTE: SKIN ASSESSMENT DONE WITH PRIMARY RN, PT IS AWAKE ACTIVE COUGHING WITH MILD SOB,NC 2L IN PLACE. POSSIBLE VASCULITIS AND CELLULITIS TO TRUNK OF BODY AND ALL LIMBS DENUDED BLISTERING SKIN , ERYTHEMA,WEEPING MULTIPLE RED SPOTS TO HANDS AND FEET/ PALMS AND SOLES SKIN SWELL AND HARDEN FURTHER SKIN BREAKS INDICATED. -SACRALCOCCYX AND BUTTOCKS SEVERE MOISTURE ASSOCIATED DERMATITIS SKIN EROSIONS, RED AMD MOIST. -LEFT LATERAL LEG FULL THICKNESS SKIN LOSS 2X1X0.3CM, WOUND BED RED, MOIST NO ODOR, JOSEPH-WOUND SKIN ERYTHEMA, WEEPING SKIN BLE MULTIPLE BROWN SCABS, JOSEPH-WOUND SKIN RED WITH WEEPING SKIN -RIGHT HEEL UN-STAGEABLE DRY BROWN SCAB 3X2CM -LEFT HEEL UN-STAGEABLE DRY BROWN SCAB 3X3CM POC DISCUSSED WITH PRIMARY RN. RECOMMENDATIONS: -CLEANSE TRUNK OF BODY, UPPER AND LOWER EXTREMITIES WEEPING SKIN WITH MILD SOAP AND WATER, WRAP WITH XEROFORM DRESSING AND ABSORBANT PAD OD AND PRN IF SOILING -APPLY CALMOSEPTINE CR. TO GROINS, SACRALCOCCYX AND BUTTOCKS BID AND PRN IF SOILING, PLEASE KEEP PT. DRY AND CLEAN -PAINT SCABS TO BLE AND HEELS WITH BETADINE SOLUTION BID -TURN AND REPOSITION PATIENT Q 2H -INSPECT SKIN UNDER AND AROUND MEDICAL DEVICES. -ASSESS AND MONITOR SKIN CONDITION DURING POSITION CHANGE -OFFLOAD BILATERAL HEELS BY PLACING PILLOWS UNDER CALVES AT ALL TIMES, UNLESS OTHERWISE CONTRAINDICATED -APPLY HEEL PROTECTORS -PRESSURE REDISTRIBUTION SURFACE AND OFFLOADING SACRALCOCCYX -MANAGE MOISTURE, FRICTION AND SHEAR BY KEEP SKIN CLEAN AND DRY. -MANAGE FRICTION AND SHEAR BY USING LIFT SHEET TO REPOSITION PATIENT -HOB 30 DEGREE TOLERATE -PLEASE FOLLOW RD RECOMMENDATIONS
--- NOTE | 2021-03-20 10:10 | NUR ---
SEEN AND EXAMINED BY DR HAMMOND.
--- NOTE | 2021-03-20 11:00 | NUR ---
SEEN AND EXAMINED BY DR ROMERO. ORDERS RECEIVED.
[2021-03-20] MEDS ORDERED: ALBUMIN HUMAN 25% 100 ML IV SCH (11:30)
[2021-03-20] MEDS ORDERED: CALCIUM GLUCONATE 10% 1,000 MG in NACL 0.9% 50 ML IV SCH (12:00)
[2021-03-20] MEDS: GAUZE TP SCH (13:12)
[2021-03-20] MEDS: MENTHOL/ZINC OXIDE 113 GM TUBE TP SCH (13:12)
[2021-03-20] MEDS: MIDODRINE 5 MG TAB PO SCH ×2 (13:16→19:52)
[2021-03-20] MEDS: HYDROCORTISONE NA SUCC 100 MG/2 ML VIAL IV SCH ×2 (13:16→21:04)
[2021-03-20] MEDS: NACL 0.45% 1,000 ML IV SCH (15:04)
[2021-03-20 15:14] LABS: HEMATOCRIT 27.9 % (36-52); HEMOGLOBIN 8.9 g/dL (12.0-18.0); MEAN CORPUSCULAR HEMOGLOBIN 28 pg (27-31); MEAN CORPUSCULAR HGB CONC 32 g/dL (33-37); MEAN CORPUSCULAR VOLUME 86.2 fL (80-94); PLATELET COUNT (AUTO) 615 K/uL (140-450); RED BLOOD CELL COUNT(AUTO) 3.23 MIL/uL (4.20-6.10); RED CELL DISTRIBUTION WIDTH 18.7 % (11.6-13.7); WHITE BLOOD COUNT (AUTO) 13.2 K/uL (4.8-10.8)
--- NOTE | 2021-03-20 15:45 | NUR ---
PT CLEANED AND REPOSITIONED. TOLERATED WELL. WILL CONTINUE TO CLOSELY MONITOR.
--- NOTE | 2021-03-20 16:54 | NUR ---
03/20/21 RD INITIAL ASSESSMENT COMPLETED PLEASE REFER TO NUTRITION ASSESSMENT UNDER CARE ACTIVITY FOR ESTIMATED NUTRITIONAL NEEDS. 1. CONTINUE RENAL, PUREE DIET TOLERATED 2. RECOMMEND ORAL SUPPLEMENTS IF PO INTAKE < 75% 3. RD TO FOLLOW-UP 3-5 DAYS, MODERATE RISK KARL ROMERO, HERMINIA
--- NOTE | 2021-03-20 19:20 | NUR ---
ENDORSED BEDSIDE REPORT TO MELANI DEXTER RN FOR CONTINUITY OF CARE.
[2021-03-20 21:12] LABS: EOSINOPHILS % (MANUAL) 2 % (0-4); LYMPHOCYTES % (MANUAL) 15 % (20-46); MONOCYTES % (MANUAL) 6 % (5-12)
[2021-03-21] VITALS (24 sets, daily range): BP systolic 99–150; BP diastolic 41–80
[2021-03-21] MEDS: NACL 0.45% 1,000 ML IV SCH ×2 (00:33→10:44)
[2021-03-21] MEDS: MENTHOL/ZINC OXIDE 113 GM TUBE TP SCH ×2 (00:37→12:38)
--- NOTE | 2021-03-21 00:50 | NUR ---
F/C EMPTIED, 300CC OF CLEAR YELLOW URINE.
--- NOTE | 2021-03-21 04:34 | NUR ---
colostomy bag replaced. site cleansed with saline, pat dry. stoma is pink. no redness around site. bm large, formed and green-brown in color.
[2021-03-21] MEDS: HYDROCORTISONE NA SUCC 100 MG/2 ML VIAL IV SCH ×3 (05:29→21:40)
[2021-03-21] MEDS: PIPERACILLIN/TAZOBACTAM 3.375 GM in DEXTROSE 5% 50 ML IV SCH ×3 (05:29→21:35)
[2021-03-21] MEDS: MIDODRINE 5 MG TAB PO SCH ×3 (06:07→18:47)
[2021-03-21] MEDS: LEVOTHYROXINE 0.025 MG TAB PO SCH (06:08)
[2021-03-21 06:46] LABS: ANION GAP 9.3 (8-16); CARBON DIOXIDE 28.2 mmol/L (21-32); CHLORIDE 108 mmol/L (98-107); CREATININE 2.4 mg/dL (0.6-1.3); GLUCOSE 115 mg/dL (74-106); POTASSIUM 3.5 mmol/L (3.5-5.1); SODIUM SERUM 142 mmol/L (136-145); UREA NITROGEN, BLOOD 52 mg/dL (7-18)
--- NOTE | 2021-03-21 07:08 | NUR ---
report given to edi esquivel. transfer of care at this time.
--- NOTE | 2021-03-21 07:10 | NUR ---
RECEIVED BEDSIDE REPORT FROM MELANI DEXTER RN FOR CONTINUITY OF CARE. PT SUPINE IN THE BED. AAOX2. PERRLA. ON 2L NC. AFIB ON THE MONITOR. PUREE DIET. COLOSTOMY IN PLACE. R FEMORAL TLC CENTRAL LINE IN PLACE. INFUSING LEVOPHED AT 10 MCG/MIN, AND NACL 0.45% AT 100 ML/H. NICOLE -LEG BAG- IN PLACE DRAINING TO GRAVITY. LETHARGIC. SKIN NOT INTACT, SEE WOUND ASSESSMENT. CALL LIGHT WITHIN REACH. SAFETY PRECAUTIONS MET. STANDARD PRECAUTIONS IN PLACE. INITIAL ASSESSMENT COMPLETE. WILL CONTINUE TO CLOSELY MONITOR.
[2021-03-21 07:21] LABS: BASOPHILS % (AUTO) 0.1 % (0.0-2.0); HEMATOCRIT 22.7 % (36-52); HEMOGLOBIN 7.5 g/dL (12.0-18.0); LYMPHOCYTES # (AUTO) 0.7 K/uL (2.0-11.5); LYMPHOCYTES % (AUTO) 5.9 % (20.5-51.1); MEAN CORPUSCULAR HEMOGLOBIN 28 pg (27-31); MEAN CORPUSCULAR HGB CONC 33 g/dL (33-37); MEAN CORPUSCULAR VOLUME 83.6 fL (80-94); MONOCYTES # (AUTO) 0.1 K/uL (0.8-1.0); MONOCYTES % (AUTO) 0.9 % (1.7-9.3); NEUTROPHILS # (AUTO) 10.3 K/uL (1.8-7.7); NEUTROPHILS % (AUTO) 93.1 % (42.2-75.2); PLATELET COUNT (AUTO) 442 K/uL (140-450); RED BLOOD CELL COUNT(AUTO) 2.71 MIL/uL (4.20-6.10); RED CELL DISTRIBUTION WIDTH 18.3 % (11.6-13.7); WHITE BLOOD COUNT (AUTO) 11.1 K/uL (4.8-10.8)
[2021-03-21] MEDS: BUDESONIDE 0.5 MG/2 ML NEBU INH SCH ×2 (07:28→20:19)
[2021-03-21 07:42] LABS: MAGNESIUM 1.7 mg/dL (1.8-2.4)
[2021-03-21 07:43] LABS: PHOSPHORUS 4.1 mg/dL (2.5-4.9)
[2021-03-21] MEDS: APIXABAN 2.5 MG TAB PO SCH ×2 (08:56→21:30)
[2021-03-21] MEDS: DILTIAZEM 120 MG CAPER PO SCH (08:56)
[2021-03-21] MEDS: MULTIVITAMIN/MINERALS 1 TAB PO SCH (08:57)
[2021-03-21] MEDS: TAMSULOSIN 0.4 MG CAP PO SCH (08:57)
[2021-03-21] MEDS: MONTELUKAST SODIUM 10 MG TAB PO SCH (08:57)
[2021-03-21] MEDS ORDERED: VANCOMYCIN 1,000 MG in DEXTROSE 5% 250 ML IV SCH (10:00)
--- NOTE | 2021-03-21 10:40 | NUR ---
SEEN AND EXAMINED BY DR ULRICH.SEEN AND EXAMINED BY DR HAMMOND. ORDERS RECEIVED.
--- NOTE | 2021-03-21 10:50 | NUR ---
SEEN AND EXAMINED BY DR ROMERO. ORDERS RECEIVED.
[2021-03-21] MEDS ORDERED: MAG SULF 2000 MG/WATER PREMIX 50 ML IV SCH (11:00)
[2021-03-21] MEDS: GAUZE TP SCH (12:38)
--- NOTE | 2021-03-21 17:40 | NUR ---
SEEN AND EXAMINED BY DR MCLEAN. ORDERS RECEIVED.
[2021-03-21] MEDS ORDERED: SODIUM PHOSPHATE 15 MMOLE in NACL 0.9% 250 ML IV ONE (17:50)
--- NOTE | 2021-03-21 19:05 | NUR ---
ENDORSED BEDSIDE REPORT [facility] FOR CONTINUITY OF CARE.
--- NOTE | 2021-03-21 19:30 | NUR ---
Received report from Candace Patel RN. Patient awake and sitting up in high fowlers watching TV. Patient responsive to verbal stimuli and oriented to person and situation. Patient developmentally delayed and at current baseline. Patient denies patient at this time. Patient respirations are even and unlabored. Patient noted with moist cough, non-productive. Bilateral upper lung sounds noted with expiratory wheezing and crackles.Bilateral lower lung sounds diminished. Patient o2@ 97% on 2L NC. RT called for evaluation of patient. Patient denies any CP. Skin dry and warm to touch. Patient FC in place, 500ml of yellow urine emptied. Patient colostomy bag in place. Stoma pink, and moist. BS: 125. Patient remains on aquatics instructor. Bed is locked and in lowest position.
[2021-03-21] MEDS: ALBUTEROL 0.083% 2.5 MG/3 ML NEBU INH PRN (20:25)
[2021-03-22] VITALS (23 sets, daily range): BP systolic 94–146; BP diastolic 48–85
--- NOTE | 2021-03-22 00:15 | NUR ---
Patient resting in bed with eyes closed, respirations are even and unlabored. Patient repositioned in bed, denies pain at this time.
[2021-03-22] MEDS: MENTHOL/ZINC OXIDE 113 GM TUBE TP SCH ×3 (01:00→21:13)
[2021-03-22] MEDS: HYDROCORTISONE NA SUCC 100 MG/2 ML VIAL IV SCH ×3 (05:00→21:10)
[2021-03-22] MEDS: PIPERACILLIN/TAZOBACTAM 3.375 GM in DEXTROSE 5% 50 ML IV SCH ×3 (05:30→21:09)
[2021-03-22] MEDS: NOREPINEPHRINE 16 MG in DEXTROSE 5% 250 ML IV PRN (06:06)
[2021-03-22 06:22] LABS: BASOPHILS % (AUTO) 0.1 % (0.0-2.0); HEMOGLOBIN 7.7 g/dL (12.0-18.0); LYMPHOCYTES # (AUTO) 0.6 K/uL (2.0-11.5); LYMPHOCYTES % (AUTO) 6.1 % (20.5-51.1); MEAN CORPUSCULAR HEMOGLOBIN 28 pg (27-31); MEAN CORPUSCULAR HGB CONC 33 g/dL (33-37); MEAN CORPUSCULAR VOLUME 84.3 fL (80-94); MONOCYTES # (AUTO) 0.2 K/uL (0.8-1.0); MONOCYTES % (AUTO) 1.6 % (1.7-9.3); NEUTROPHILS # (AUTO) 9.4 K/uL (1.8-7.7); NEUTROPHILS % (AUTO) 92.2 % (42.2-75.2); PLATELET COUNT (AUTO) 442 K/uL (140-450); RED BLOOD CELL COUNT(AUTO) 2.72 MIL/uL (4.20-6.10); RED CELL DISTRIBUTION WIDTH 18.5 % (11.6-13.7); WHITE BLOOD COUNT (AUTO) 10.2 K/uL (4.8-10.8)
[2021-03-22] MEDS ORDERED: CRUSHER, PILL MC ONE (06:25)
[2021-03-22 06:26] LABS: ALBUMIN 1.9 g/dL (3.4-5.0); ANION GAP 12.9 (8-16); ASPARTATE AMINOTRANSFERASE 20 U/L (15-37); CARBON DIOXIDE 26.4 mmol/L (21-32); CHLORIDE 106 mmol/L (98-107); CREATININE 2.3 mg/dL (0.6-1.3); GLUCOSE 112 mg/dL (74-106); MAGNESIUM 1.9 mg/dL (1.8-2.4); PHOSPHORUS 3.9 mg/dL (2.5-4.9); POTASSIUM 3.3 mmol/L (3.5-5.1); SODIUM SERUM 142 mmol/L (136-145); TOTAL BILIRUBIN 0.4 mg/dL (0.0-1.0); UREA NITROGEN, BLOOD 53 mg/dL (7-18)
[2021-03-22] MEDS: LEVOTHYROXINE 0.025 MG TAB PO SCH (06:30)
[2021-03-22] MEDS: MIDODRINE 5 MG TAB PO SCH ×3 (06:42→18:31)
[2021-03-22] MEDS: BUDESONIDE 0.5 MG/2 ML NEBU INH SCH ×2 (07:05→19:30)
--- NOTE | 2021-03-22 07:18 | NUR ---
Report given to ANDREA PANDEY, BS: 210
[2021-03-22] MEDS: DILTIAZEM 120 MG CAPER PO SCH (08:26)
[2021-03-22] MEDS: TAMSULOSIN 0.4 MG CAP PO SCH (08:26)
[2021-03-22] MEDS: MULTIVITAMIN/MINERALS 1 TAB PO SCH (08:27)
[2021-03-22] MEDS: MONTELUKAST SODIUM 10 MG TAB PO SCH (08:27)
[2021-03-22] MEDS: APIXABAN 2.5 MG TAB PO SCH ×2 (08:28→21:11)
--- NOTE | 2021-03-22 08:42 | NUR ---
DC PLANNING: THE PATIENT ADMITTED FROM [facility] FOR ABNORMAL LABS. H/O SEPSIS, LLE CELLULITIS AND DVT, COPD, COLOSTOMY, HTN, CAD, DM AND DEVELOPMENTAL DELAY. DXR SHOWED BILATERAL PLEURAL EFFUSIONS, BNP WAS ELEVATED, H&P NOTED JONI, ANEMIA, SEPSIS AND ARF. CURRENTLY IN ICU, CR ELEVATED AT 2.3, ON IVF'S, LEVOPHED AT 6 MCG, AND ZOSYN. FOLLOWED BY SURGERY FOR WOUNDS, NEPHRO AND ID. CXR FROM TODAY SHOWS DECREASED AERATION RIGHT LUNG BASE, ON O2 2L NC. DCP IS TO RETURN TO [facility] WHEN CLINICALLY STABLE, CM WILL FOLLOW. Addendum: 03/26/21 at 1611 by Chely Rodriguez CM DC PLANNING:' THE PATIENT REMAINS ON 5L O2 WITH LABORED RESPIRATIONS AND WET BREATH SOUNDS. CM SPOKE WITH DR MCLEAN BY PHONE, OK TO REFER TO LTAC FOR CONTINUED MANAGEMENT, CM WILL REFER TO [facility] AND CONTINUE TO FOLLOW. Addendum: 03/27/21 at 0909 by Chely Rodriguez CM DC PLANNING: PATIENT REMAINS ON 5L O2 VIA MASK, PER RT SUCTIONING BACK OF THROAT WITH MINIMAL SPUTUM, NASAL SUCTIONING PRODUCING BLOODY MUCUS. PATIENT WITH STRONG COUGH, O2 SATS 90-98%. PATIENT WILL BE REFERRED TO [facility], CM WILL FOLLOW. Addendum: 03/27/21 at 1343 by Chely Rodriguez CM DC PLANNING: NEENA SPOKE WITH BRITT CABRERA ([phone]) REGARDING POTENTIAL LTAC PLACEMENT. SHE STATES THAT THE PATIENTS FAMILY IS INVOLVED, HIS BROTHER JUAN HAS DECISION MAKING CAPACITY ([phone]), PATIENT IS ALSO [facility] CONNECTED, WORKER IS MIRZA CONWAY ([phone]). PATIENT NORMALLY RESIDES AT [facility] AND HAS FOR YEARS. HE IS NORMALLY VERBAL, ASSISTS WITH ADL'S AND IS ABLE TO FEED AND TOILET HIMSELF AND IS NOT INCONTINENT. HE AMBULATES USING A FWW AND ALSO PUSHES HIS WC. LEFT FOR MIRZA REGARDING [facility] REFERRAL, AND NEENA ALSO SPOKE WITH HIS BROTHER JUAN TO LET HIM ABOUT THE LTAC REFERRAL, JUAN IS IN AGREEMENT WITH LTAC PLACEMENT IF THE PATIENT IS ACCEPTED. CM WILL FOLLOW. Addendum: 03/28/21 at 0852 by Chely Rodriguez DC PLANNING: PATIENT REMAINS ON 5L O2 VIA MASK, RESPIRATIONS CONTINUE TO BE LABORED. NO NEW LABS ORDERED TODAY, HR IN THE 120'S. ON LASIX IV, HHN'S, SOLU-CORTEF IV, VANCOMYCIN AND ZOSYN. PATIENT FROM [facility], REFERRED TO [place], WAITING FOR CONFIRMATION OF ACCEPTANCE AND BED AVAILABILITY. CM WILL FOLLOW. Addendum: 03/29/21 at 1218 by Chely Rodriguez DC PLANNING: CM SPOKE WITH TRAVIS AT [facility] THIS MORNING, STILL WAITING FOR A BED FOR PLACEMENT. PATIENT ON VAPOTHERM, 20 L AT 100% FIO2, NA+ TODAY 160, CR 1.7. REMAINS ON VANCO, ZOSYN, SOLU CORTEF, HHN'S AND LASIX. CXR FROM TODAY SHOWS NO CHANGE IN PNA OR PULMONARY EDEMA. CM WILL FOLLOW FOR NEEDS.
--- NOTE | 2021-03-22 10:30 | NUR ---
SEEN BY DR HAMMOND NO NEW ORDER RECEIVED.
[2021-03-22] MEDS ORDERED: POTASSIUM CHLORIDE 10 MEQ TABER PO SCH (10:50)
--- NOTE | 2021-03-22 11:00 | NUR ---
SEEN BY BY DR. ROMERO NO ORDER RECIEVED.
[2021-03-22] MEDS ORDERED: POTASSIUM CHLORIDE 20% 40 MEQ/15 ML UDC PO SCH (11:30)
--- NOTE | 2021-03-22 11:45 | NUR ---
SEEN BY LUCA MURPHY NO ORDER RECEIVED,
--- NOTE | 2021-03-22 12:30 | NUR ---
LUNCH PUREE DIET TAKEB 80%.
[2021-03-22] MEDS: GAUZE TP SCH (13:00)
[2021-03-22] MEDS: NACL 0.45% 1,000 ML IV SCH ×2 (14:40→21:12)
--- NOTE | 2021-03-22 19:29 | NUR ---
REPORT GIVED TO SHARON PANDEY.
[2021-03-23] VITALS (13 sets, daily range): BP systolic 111–132; BP diastolic 45–68
[2021-03-23] MEDS: PIPERACILLIN/TAZOBACTAM 3.375 GM in DEXTROSE 5% 50 ML IV SCH ×3 (04:27→22:37)
[2021-03-23] MEDS: HYDROCORTISONE NA SUCC 100 MG/2 ML VIAL IV SCH ×3 (04:27→22:16)
[2021-03-23] MEDS: MIDODRINE 5 MG TAB PO SCH ×3 (04:28→19:11)
[2021-03-23] MEDS: LEVOTHYROXINE 0.025 MG TAB PO SCH (04:30)
--- NOTE | 2021-03-23 06:15 | NUR ---
PATIENT STABLE VITALS SIGNS IN NORMAL LIMITS NOT SIGNS OF PAIN TOLERATED VERY WELL THE ORAL CARE AND BATH //DiCaprio RN
[2021-03-23 07:23] LABS: BASOPHILS % (AUTO) 0.3 % (0.0-2.0); HEMOGLOBIN 7.5 g/dL (12.0-18.0); LYMPHOCYTES # (AUTO) 0.5 K/uL (2.0-11.5); MEAN CORPUSCULAR HEMOGLOBIN 28 pg (27-31); MEAN CORPUSCULAR HGB CONC 32 g/dL (33-37); MEAN CORPUSCULAR VOLUME 85.5 fL (80-94); MONOCYTES # (AUTO) 0.2 K/uL (0.8-1.0); NEUTROPHILS # (AUTO) 5.8 K/uL (1.8-7.7); NEUTROPHILS % (AUTO) 88.7 % (42.2-75.2); PLATELET COUNT (AUTO) 366 K/uL (140-450); RED BLOOD CELL COUNT(AUTO) 2.69 MIL/uL (4.20-6.10); RED CELL DISTRIBUTION WIDTH 18.2 % (11.6-13.7); WHITE BLOOD COUNT (AUTO) 6.5 K/uL (4.8-10.8)
[2021-03-23] MEDS: BUDESONIDE 0.5 MG/2 ML NEBU INH SCH ×2 (07:30→20:03)
--- NOTE | 2021-03-23 07:30 | NUR ---
RECEIVED REPORT FROM NIGHT RN FOR CONTINUITY OF CARE. PT IN THE BED, HOB ELEVATED. AAOX2. PERRLA. ON 2L NC. AFIB ON THE MONITOR. PUREE DIET. COLOSTOMY IN PLACE. R FEMORAL TLC CENTRAL LINE IN PLACE. INFUSING LEVOPHED AT 2 MCG/MIN, AND NACL 0.45% AT 50 ML/H. NICOLE IN PLACE DRAINING TO GRAVITY. SKIN NOT INTACT, SEE WOUND ASSESSMENT. CALL LIGHT WITHIN REACH. SAFETY PRECAUTIONS MET. STANDARD PRECAUTIONS IN PLACE. WILL CONTINUE TO MONITOR.
[2021-03-23 08:00] LABS: ALBUMIN 1.9 g/dL (3.4-5.0); ANION GAP 12.8 (8-16); ASPARTATE AMINOTRANSFERASE 34 U/L (15-37); CARBON DIOXIDE 25.2 mmol/L (21-32); CHLORIDE 111 mmol/L (98-107); CREATININE 2.1 mg/dL (0.6-1.3); GLUCOSE 98 mg/dL (74-106); SODIUM SERUM 145 mmol/L (136-145); TOTAL BILIRUBIN 0.3 mg/dL (0.0-1.0); UREA NITROGEN, BLOOD 54 mg/dL (7-18)
[2021-03-23] MEDS: TAMSULOSIN 0.4 MG CAP PO SCH (08:22)
[2021-03-23] MEDS: APIXABAN 2.5 MG TAB PO SCH ×2 (08:22→22:11)
[2021-03-23] MEDS: MULTIVITAMIN/MINERALS 1 TAB PO SCH (08:22)
[2021-03-23] MEDS: MONTELUKAST SODIUM 10 MG TAB PO SCH (08:22)
[2021-03-23] MEDS: DILTIAZEM 120 MG CAPER PO SCH (08:22)
--- NOTE | 2021-03-23 09:30 | NUR ---
DUE MEDS GIVEN. ORAL CARE AND NICOLE CARE DONE. CHANGED COLOSTOMY BAG. TURNED AND REPOSITIONED
[2021-03-23] MEDS ORDERED: VANCOMYCIN 1,000 MG in DEXTROSE 5% 250 ML IV SCH (10:00)
--- NOTE | 2021-03-23 11:00 | NUR ---
SEEN AND EXAMINED BY DR URBAN, NO NEW ORDERS
[2021-03-23] MEDS: MENTHOL/ZINC OXIDE 113 GM TUBE TP SCH (12:15)
[2021-03-23] MEDS: GAUZE TP SCH (12:16)
--- NOTE | 2021-03-23 12:30 | NUR ---
ASSISTED WITH LUNCH, ATE 70%
--- NOTE | 2021-03-23 14:00 | NUR ---
WOUND CARE DONE. TURNED AND REPOSITIONED
[2021-03-23] MEDS: ALBUTEROL 0.083% 2.5 MG/3 ML NEBU INH PRN (14:10)
--- NOTE | 2021-03-23 14:30 | NUR ---
SEEN AND EXAMINED BY DR RAMOS, ORDERED TO DOWNGRADE TO TELE
--- NOTE | 2021-03-23 16:30 | NUR ---
REPORT GIVEN TO FREDA PANDEY IN TELE
--- NOTE | 2021-03-23 17:26 | NUR ---
RECEIVED PT FROM ICU. PT AWAKE IN BED. ON O2 VIA NC AT 2L, SATING AT 99% FLACC 0. NICOLE CATHETER INTACT AND PATENT, WITH COLOSTOMY INTACT. RIGHT FEMORAL CENTRAL LINE 3 LUMEN RUNNING AT 80CC 1/2NS. ALL SAFETY MEASURES IN [place]. WILL CONTINUE TO MONITOR.
--- NOTE | 2021-03-23 17:30 | NUR ---
TRANSFERRED PT TO TELE RM 112A
[2021-03-23] MEDS: NACL 0.45% 1,000 ML IV SCH (18:57)
--- NOTE | 2021-03-23 20:00 | NUR ---
RECEIVED REPORT FROM RN DAYSHIFT NURSE AT BEDSIDE FOR CONTINUITY OF CARE, PT SITTING UP IN BED HOB UP AT 45% HE IS AOX1-2 AND IS ON 2 LITERS VIA N/C LUNG SOUNDS WHEEZY LABORED AND DIMINISHED AND HAS A RIGHT FEMORAL TRIPLE LINE RUNNING 1/2 NS AT 80-MLS/HR PT ALSO HAS NICOLE INTACT AND DRAINING CLOUDY URINE WITH SEDIMENT. PT SKIN IS VERY DRY AND FLAKING ALL OVER WELL NON PITTING EDEMA OF ALL FOUR EXTREMITIES. NO S/S OF PAIN OR DISTRESS NOTED. ALL ORDERED PRECAUTIONS IN PLACE.
--- NOTE | 2021-03-23 21:30 | NUR ---
PT IN BED V/S FOLLOWS: T 97.0 P 94 R 20 B/P 118/68 02 100% ON 2 LITERS VIA N/C. PT WAS FEED PUREED DINNER AT BEDSIDE AND HE ATE 85% OF THE MEAL. PT ALSO GIVEN ORDERED SOLU-CORTEF, ZOSYN AND ELIQUIS. EDUCATION PROVIDED BUT PT UNABLE TO COMPREHEND. ALL ORDERED PRECAUTIONS IN PLACE.
--- NOTE | 2021-03-23 22:00 | NUR ---
ROUNDS DONE, PT TURNED AND REPOSITIONED IN BED. ALL ORDERED PRECAUTIONS IN PLACE.
[2021-03-24] VITALS: BP 120/69
--- NOTE | 2021-03-24 00:30 | NUR ---
V/S FOLLOWS: T 97.0 P 100 R 20 B/P 120/69 02 100% ON 2 LITERS VIA N/C.
[2021-03-24] MEDS: ALBUTEROL 0.083% 2.5 MG/3 ML NEBU INH PRN ×3 (00:52→20:26)
[2021-03-24] MEDS: MENTHOL/ZINC OXIDE 113 GM TUBE TP SCH ×2 (01:00→13:04)
[2021-03-24 04:00] VITALS: BP 134/77
--- NOTE | 2021-03-24 04:30 | NUR ---
PT V/S FOLLOWS: T 97 P 120 R 20 B/P 134/77 02 97% WITH 2 LITERS VIA N/C. PT REPOSITIONED IN BED.
[2021-03-24] MEDS: PIPERACILLIN/TAZOBACTAM 3.375 GM in DEXTROSE 5% 50 ML IV SCH ×3 (05:00→21:00)
[2021-03-24] MEDS: HYDROCORTISONE NA SUCC 100 MG/2 ML VIAL IV SCH ×3 (05:00→21:00)
--- NOTE | 2021-03-24 06:30 | NUR ---
SYNTHROID GIVEN PO ORDERED. MIDODRINE HELD DUE TO INCREASED B/P. ZOSYN HUNG AND RUNNING ORDERED. PT UNABLE TO COMPREHEND PURPOSE OF ORDERED MEDICATION.
[2021-03-24] MEDS: NACL 0.45% 1,000 ML IV SCH (06:40)
[2021-03-24] MEDS: MIDODRINE 5 MG TAB PO SCH ×3 (07:00→19:31)
[2021-03-24] MEDS: LEVOTHYROXINE 0.025 MG TAB PO SCH (07:13)
[2021-03-24 07:28] LABS: ANION GAP 12.5 (8-16); ASPARTATE AMINOTRANSFERASE 42 U/L (15-37); CARBON DIOXIDE 27.2 mmol/L (21-32); CHLORIDE 109 mmol/L (98-107); GLUCOSE 101 mg/dL (74-106); POTASSIUM 3.7 mmol/L (3.5-5.1); SODIUM SERUM 145 mmol/L (136-145); TOTAL BILIRUBIN 0.3 mg/dL (0.0-1.0); UREA NITROGEN, BLOOD 52 mg/dL (7-18)
[2021-03-24 07:31] LABS: BASOPHILS % (AUTO) 0.2 % (0.0-2.0); HEMATOCRIT 24.4 % (36-52); LYMPHOCYTES # (AUTO) 0.5 K/uL (2.0-11.5); LYMPHOCYTES % (AUTO) 8.5 % (20.5-51.1); MEAN CORPUSCULAR HEMOGLOBIN 28 pg (27-31); MEAN CORPUSCULAR HGB CONC 33 g/dL (33-37); MEAN CORPUSCULAR VOLUME 84.7 fL (80-94); MONOCYTES # (AUTO) 0.4 K/uL (0.8-1.0); MONOCYTES % (AUTO) 5.9 % (1.7-9.3); NEUTROPHILS # (AUTO) 5.2 K/uL (1.8-7.7); NEUTROPHILS % (AUTO) 85.4 % (42.2-75.2); PLATELET COUNT (AUTO) 352 K/uL (140-450); RED BLOOD CELL COUNT(AUTO) 2.88 MIL/uL (4.20-6.10); RED CELL DISTRIBUTION WIDTH 18.8 % (11.6-13.7); WHITE BLOOD COUNT (AUTO) 6.1 K/uL (4.8-10.8)
[2021-03-24] MEDS: BUDESONIDE 0.5 MG/2 ML NEBU INH SCH ×2 (07:45→20:26)
--- NOTE | 2021-03-24 07:52 | NUR ---
RECEIVED BEDSIDE REPORT FROM CONSUMER RELATIONS COMPLAINT CLERK NURSE FOR CONTINUITY OF CARE. PT IS A&OX2, BEDBOUND. ON 2L O2 NC WITH BREATHING UNLABORED. AFIB CONTROLLED ON TELE MONITOR. FEEDER. NICOLE CATH IN PLACE DRAINING YELLOW URINE. COLOSTOMY BAG IN PLACE. DTI ON BILAT HEELS, SACRAL WOUND WITH DRESSING IN PLACE. CENTRAL LINE IN PLACE IN THE RIGHT FEMORAL INFUSING FLUIDS ORDERED. PT IS STABLE. PLAN OF CARE DISCUSSED.
[2021-03-24 08:00] VITALS: BP 131/71
[2021-03-24] MEDS: MONTELUKAST SODIUM 10 MG TAB PO SCH (09:37)
[2021-03-24] MEDS: DILTIAZEM 120 MG CAPER PO SCH (09:38)
[2021-03-24] MEDS: APIXABAN 2.5 MG TAB PO SCH ×2 (09:39→21:00)
[2021-03-24] MEDS: MULTIVITAMIN/MINERALS 1 TAB PO SCH (09:39)
[2021-03-24] MEDS: TAMSULOSIN 0.4 MG CAP PO SCH (09:39)
--- NOTE | 2021-03-24 10:00 | NUR ---
PT WAS CHANGED AND REPOSITIONED. PT TOLERATED MOVEMENT WELL. NO DISTRESS NOTED. BREATHING IS UNLABORED ON 2L O2 NC. PT DENIES PAIN. WILL CONTINUE TO MONITOR.
--- NOTE | 2021-03-24 10:56 | NUR ---
(03/24/21) RD FOLLOW UP COMPLETED PLEASE REFER TO NUTRITION PROGRESS NOTE UNDER CARE ACTIVITY FOR ESTIMATED NUTRITION NEEDS. RD RECOMMENDATIONS: 1. CONSIDER D/C RENAL DIET RESTRICTION. 2. CONSIDER STARTING 2GM SODIUM PUREE DIET AT ALL MEALS TID. 3. RD TO FOLLOW-UP 3-5 DAYS, MODERATE RISK DANNY MENA MS, RDN
[2021-03-24 12:00] VITALS: BP 104/76
--- NOTE | 2021-03-24 12:44 | NUR ---
RECEIVED VERBAL ORDER FROM DR. URBAN TO STOP FLUIDS.
--- NOTE | 2021-03-24 13:00 | NUR ---
PT IS WHEEZING. CALLED RT TO ADMINISTER ALBUTEROL TX. SHE ARRIVED AND PROVIDED TX AND DEEP SUCTIONING.
[2021-03-24] MEDS: GAUZE TP SCH (13:03)
[2021-03-24] MEDS ORDERED: FUROSEMIDE 40 MG/4 ML VIAL IVP SCH (13:35)
[2021-03-24 16:00] VITALS: BP 133/67
--- NOTE | 2021-03-24 16:00 | NUR ---
PT WAS GIVEN A BED BATH AND LINENS WERE CHANGED. DRESSINGS DRY AND INTACT. LOTION APPLIED TO DRY SCALY SKIN. LOTS OF FLAKING OF SKIN NOTED. PT IS A&OX2. ABLE TO MAKE NEEDS KNOWN.
--- NOTE | 2021-03-24 18:36 | NUR ---
PT IS AWAKE AND RESPONDS TO QUESTIONS. GARBLED SPEECH. ABLE TO MAKE OUT SOME WORDS. COLOSTOMY BAG IN PLACE. RIGHT FEMORAL CENTRAL LINE IN PLACE. PT IS STABLE.
--- NOTE | 2021-03-24 19:27 | NUR ---
ENDORSED PT TO MANAGEMENT ACCOUNTANT NURSE FOR CONTINUITY OF CARE. PT IS STABLE. PLAN OF CARE DISCUSSED.
[2021-03-24 20:00] VITALS: BP 117/80
--- NOTE | 2021-03-24 20:00 | NUR ---
RECEIVED REPORT AT BEDSIDE FOR CONTINUITY OF CARE. PT SITTING UP IN BED ON 3 LITERS VIA N/C. PT NOTED WITH A NOSE BLEED ON RIGHT NARE. DIRECT PRESSURE AND ICE APPLIED. PT IS ON ELIQUIS. TEXTED PRIMARY MD MCLEAN IF I SHOULD HOLD THE ELIQUIS AT THIS TIME.
--- NOTE | 2021-03-24 20:26 | NUR ---
PT LAYING IN BED ASLEEP, PRESENTS WITH DRY BLOOD IN NOSE, BS REVEALED COARSE CRACKLES AND WHEEZING IN THE APICES DIMINISHED AT BASES, NO SIGNS OF RESPIRATORY DISTRESS NOTED AT THIS TIME. GAVE PT HHN TX VIA NEBULIZER WITH MASK TOLERATED WELL WHEEZING IMPROVED AND COARSENESS IMPROVED. CURRENT SATURATIONS AT 100% ON 3LNC. WILL CONTINUE TO MONITOR.
--- NOTE | 2021-03-24 20:26 | NUR ---
PT LAYING IN BED ASLEEP, BS REVELAED COARSE CRACKLES AND WHEEZING AT APICES DIMINISHED AT BASES, NO SIGNS OF RESPIRATORY DISTRESS NOTED AT THIS TIME. GAVE PT HHN TX STATES SHE RATHER REST. WILL CONTINUE TO MONITOR. Addendum: 03/25/21 at 0217 by Jan Cespedes RT CORRECTION TO NOTES INCORRECT PT.
--- NOTE | 2021-03-24 21:30 | NUR ---
MD MCLEAN SAID TO HOLD ELIQUIS FOR 2 DAYS RESTART AFTER 2 DAYS IF THERE IS NO EPISTAXIS (NOSE BLEEDING).PT WAS GIVEN IVP SOLU-CORTEF AND ZOSYN IV ABT, PT UNABLE TO COMPREHEND UNDERSTANDING OF PURPOSE OF MEDICATION. PT UNCOOPERATIVE WHILE TAKING MEASURES TO HELP STOP THE BLEEDING. ICE PACKS AND DIRECT PRESSURE USED, PT UNABLE TO TOLERATE. V/S FOLLOWS: T 97.5 P 104 R 23 B/P 117/80 02 100%WITH 3 LITERS VIA N/C. PT HAS TRIPLE LUMEN CENTRAL LINE INTACT AND RUNNING 1/2 NS AT 10MLS/HR. ALL ORDERED PRECAUTIONS IN PLACE.
[2021-03-25] VITALS: BP 138/67
--- NOTE | 2021-03-25 | NUR ---
PT SITTING UP STILL NOTED WITH ACTIVE BLEEDING BUT HAS CLOTS OF BLOOD AND HAS NOT GOTTEN HEAVIER. PT V/S FOLLOWS: T 97.5 P 90 R 22 B/P 138/67 02 100% ON 3 LITERS OF HUMIDIFIED 02.
[2021-03-25] MEDS: MENTHOL/ZINC OXIDE 113 GM TUBE TP SCH ×2 (01:00→12:25)
[2021-03-25] MEDS: ALBUTEROL 0.083% 2.5 MG/3 ML NEBU INH PRN ×4 (03:48→19:39)
[2021-03-25 04:00] VITALS: BP 108/78
--- NOTE | 2021-03-25 04:30 | NUR ---
PT NOSE BLEED IS CLOTTED. HE WAS CLEANED AND FRESH GOWN GIVEN WELL ORAL CARE. V/S FOLLOWS: T 97.9 P 56 R 22 B/P 108/78 02 94% ON 3 LITERS VIA HUMIDIFIED N/C.
[2021-03-25] MEDS: HYDROCORTISONE NA SUCC 100 MG/2 ML VIAL IV SCH ×3 (05:00→22:15)
[2021-03-25] MEDS: PIPERACILLIN/TAZOBACTAM 3.375 GM in DEXTROSE 5% 50 ML IV SCH ×3 (05:00→22:11)
[2021-03-25] MEDS: LEVOTHYROXINE 0.025 MG TAB PO SCH (06:30)
--- NOTE | 2021-03-25 06:30 | NUR ---
PT GIVEN ORDERED SYNTHROID AND MIDODRINE ORDERED IV ABT ZOSYN HUNG AND RUNNING ORDERED. ALL ORDERED PRECAUTIONS IN PLACE.
[2021-03-25 07:17] LABS: MAGNESIUM 1.7 mg/dL (1.8-2.4); PHOSPHORUS 4.1 mg/dL (2.5-4.9)
[2021-03-25 07:36] LABS: BASOPHILS % (AUTO) 0.4 % (0.0-2.0); HEMATOCRIT 24.2 % (36-52); HEMOGLOBIN 7.8 g/dL (12.0-18.0); LYMPHOCYTES # (AUTO) 0.5 K/uL (2.0-11.5); LYMPHOCYTES % (AUTO) 8.4 % (20.5-51.1); MEAN CORPUSCULAR HEMOGLOBIN 28 pg (27-31); MEAN CORPUSCULAR HGB CONC 32 g/dL (33-37); MEAN CORPUSCULAR VOLUME 85.8 fL (80-94); MONOCYTES # (AUTO) 0.3 K/uL (0.8-1.0); MONOCYTES % (AUTO) 5.1 % (1.7-9.3); NEUTROPHILS # (AUTO) 5.3 K/uL (1.8-7.7); NEUTROPHILS % (AUTO) 86.1 % (42.2-75.2); PLATELET COUNT (AUTO) 319 K/uL (140-450); RED BLOOD CELL COUNT(AUTO) 2.82 MIL/uL (4.20-6.10); RED CELL DISTRIBUTION WIDTH 18.5 % (11.6-13.7); WHITE BLOOD COUNT (AUTO) 6.2 K/uL (4.8-10.8)
[2021-03-25] MEDS: BUDESONIDE 0.5 MG/2 ML NEBU INH SCH ×2 (07:45→19:39)
[2021-03-25 07:56] LABS: ALBUMIN 2.1 g/dL (3.4-5.0); ANION GAP 16.7 (8-16); ASPARTATE AMINOTRANSFERASE 39 U/L (15-37); CARBON DIOXIDE 24.7 mmol/L (21-32); CHLORIDE 111 mmol/L (98-107); GLUCOSE 89 mg/dL (74-106); POTASSIUM 3.4 mmol/L (3.5-5.1); SODIUM SERUM 149 mmol/L (136-145); TOTAL BILIRUBIN 0.3 mg/dL (0.0-1.0); UREA NITROGEN, BLOOD 56 mg/dL (7-18)
[2021-03-25] MEDS: MIDODRINE 5 MG TAB PO SCH ×3 (07:56→18:18)
[2021-03-25 08:00] VITALS: BP 151/84
[2021-03-25] MEDS: TAMSULOSIN 0.4 MG CAP PO SCH (08:40)
[2021-03-25] MEDS: MULTIVITAMIN/MINERALS 1 TAB PO SCH (08:40)
[2021-03-25] MEDS: MONTELUKAST SODIUM 10 MG TAB PO SCH (08:40)
[2021-03-25] MEDS: DILTIAZEM 120 MG CAPER PO SCH (08:41)
[2021-03-25] MEDS: APIXABAN 2.5 MG TAB PO SCH (09:00)
--- NOTE | 2021-03-25 09:00 | NUR ---
ADAN MEDICATION ADMINISTERED PER MD ORDER, WITH APPLE SAUCE. PT TOLERATED ADMINISTRATION. PT NOSE BLEEDING FROM NASAL CANNULA, SWITCHED TO MASK. PT FACE CLEANED UP. PT IV FLUIDS REPLACED. ALL SAFETY MEASURES IN PLACE. CALL LIGHT WITHIN REACH. WILL CONTINUE TO MONITOR.
--- NOTE | 2021-03-25 09:07 | NUR ---
HELD IRVING POSADA MD ORDER
[2021-03-25] MEDS ORDERED: FUROSEMIDE 20 MG/2 ML VIAL IVP SCH (12:19)
[2021-03-25] MEDS: GAUZE TP SCH (12:26)
--- NOTE | 2021-03-25 13:00 | NUR ---
DRESSING CHANGE TO BILATERAL ARMS AND LEFT LEG COMPLETED. DRESSING DRY AND INTACT, NO ACUTE DISTRESS, PT STABLE IN BED, REPOSITIONED, CALL LIGHT WITHIN REACH, WILL CONTINUE TO MONITOR
--- NOTE | 2021-03-25 13:00 | NUR ---
HELD MIDODRINE DUE TO ELEVATED BLOOD PRESSURE
[2021-03-25 13:12] VITALS: BP 126/74
[2021-03-25 16:00] VITALS: BP 136/68
--- NOTE | 2021-03-25 17:30 | NUR ---
PT STABLE IN BED, REPOSITIONED, VSS, NO ACUTE DISTRESS, SAFETY MEASURES MAINTAINED, CALL LIGHT WITHIN REACH, WILL CONTINUE TO MONITOR
[2021-03-25] MEDS ORDERED: MAG SULF 2000 MG/WATER PREMIX 50 ML IV SCH (17:41)
[2021-03-25] MEDS ORDERED: POTASSIUM CHLORIDE 10 MEQ TABER PO SCH (17:42)
--- NOTE | 2021-03-25 18:15 | NUR ---
BLOOD PRESSURE RECHECKED, 129/78 - MIDODRINE HELD PER PARAMETERS.
--- NOTE | 2021-03-25 18:47 | NUR ---
PT REMAINS STABLE, VSS, NO ACUTE DISTRESS, ALL NEEDS MET DURING SHIFT, SAFETY MEASURES MAINTAINED, CALL LIGHT WITHIN REACH, WILL ENDORSE TO CAN VACUUM TESTER RN
[2021-03-25] MEDS: ALBUMIN HUMAN 25% 50 ML IV SCH (22:05)
[2021-03-25] MEDS: FUROSEMIDE 20 MG/2 ML VIAL IVP SCH (22:06)
[2021-03-25 23:40] VITALS: BP 120/69
[2021-03-26] MEDS: MENTHOL/ZINC OXIDE 113 GM TUBE TP SCH ×2 (01:18→13:09)
[2021-03-26] MEDS: PIPERACILLIN/TAZOBACTAM 3.375 GM in DEXTROSE 5% 50 ML IV SCH ×3 (05:52→21:00)
[2021-03-26] MEDS: LEVOTHYROXINE 0.025 MG TAB PO SCH (05:58)
[2021-03-26] MEDS: HYDROCORTISONE NA SUCC 100 MG/2 ML VIAL IV SCH ×3 (05:58→21:00)
[2021-03-26 05:59] VITALS: BP 111/60
[2021-03-26] MEDS: MIDODRINE 5 MG TAB PO SCH ×3 (06:02→18:41)
--- NOTE | 2021-03-26 07:30 | NUR ---
RECEIVED PT CARE AND REPORT FROM [facility]. PATIENT RESTING IN BED, ALERT AND UNABLE TO DETERMINE ORIENTATION. PT APPEARS CALM. RECEIVING 5L VIA FACE MASK. NO VISIBLE S/S OF DISTRESS, DISCOMFORT, PAIN OR SOB. SOME DRIED BLOOD AROUND BOTH NOSTRILS. CALL LIGHT WITHIN REACH. WOUNDS COVERED WITH GAUZE ON RIGHT ARM AND LEFT LEG. ALL NEEDS MET AT THIS TIME.
[2021-03-26 07:44] LABS: MAGNESIUM 2.4 mg/dL (1.8-2.4); PHOSPHORUS 4.7 mg/dL (2.5-4.9)
[2021-03-26] MEDS: BUDESONIDE 0.5 MG/2 ML NEBU INH SCH ×2 (07:44→19:28)
[2021-03-26 08:00] VITALS: BP 107/68
[2021-03-26] MEDS ORDERED: VANCOMYCIN 1,000 MG in DEXTROSE 5% 250 ML IV SCH (08:00)
[2021-03-26 08:20] LABS: ALBUMIN 2.2 g/dL (3.4-5.0); ANION GAP 11.7 (8-16); CARBON DIOXIDE 30.4 mmol/L (21-32); CHLORIDE 114 mmol/L (98-107); CREATININE 1.9 mg/dL (0.6-1.3); GLUCOSE 96 mg/dL (74-106); POTASSIUM 3.1 mmol/L (3.5-5.1); SODIUM SERUM 153 mmol/L (136-145); TOTAL BILIRUBIN 0.4 mg/dL (0.0-1.0); UREA NITROGEN, BLOOD 52 mg/dL (7-18)
[2021-03-26] MEDS: TAMSULOSIN 0.4 MG CAP PO SCH (09:44)
[2021-03-26] MEDS: MONTELUKAST SODIUM 10 MG TAB PO SCH (09:45)
[2021-03-26] MEDS: MULTIVITAMIN/MINERALS 1 TAB PO SCH (09:45)
[2021-03-26] MEDS: DILTIAZEM 120 MG CAPER PO SCH (09:46)
[2021-03-26] MEDS: FUROSEMIDE 20 MG/2 ML VIAL IVP SCH (09:46)
[2021-03-26] MEDS: ALBUMIN HUMAN 25% 50 ML IV SCH ×2 (09:47→21:00)
--- NOTE | 2021-03-26 09:50 | NUR ---
HELPED FEED PATIENT.
--- NOTE | 2021-03-26 10:53 | NUR ---
TEXTED DR. MCLEAN TO REPORT POTASSIUM LEVEL 3.1. AWAITING FURTHER ORDERS.
--- NOTE | 2021-03-26 10:59 | NUR ---
DR. MCLEAN ORDERED POTASSIUM 40MEQ FOR POTASSIUM 3.1.
[2021-03-26] MEDS ORDERED: POTASSIUM CHLORIDE 20% 40 MEQ/15 ML UDC PO SCH (11:03)
[2021-03-26 11:51] LABS: ASPARTATE AMINOTRANSFERASE 58 U/L (15-37)
[2021-03-26 12:00] VITALS: BP 122/79
--- NOTE | 2021-03-26 12:48 | NUR ---
RECEIVED NEW ORDERS FROM DR. SEAMAN. DC FUROSEMIDE 20MG BID IV. START FUROSEMIDE 40MG BID IV. GIVE FUROSEMIDE 20MG IV ONCE RIGHT NOW.
[2021-03-26] MEDS ORDERED: FUROSEMIDE 20 MG/2 ML VIAL IVP SCH (13:00)
[2021-03-26] MEDS: GAUZE TP SCH (13:09)
--- NOTE | 2021-03-26 13:47 | NUR ---
HELD MIDODRINE 10MG. BP 132/79, HR 103.
--- NOTE | 2021-03-26 13:47 | NUR ---
HELPED FEED PATIENT. PROVIDED WOUND CARE ON LEFT ARM. NOT ENOUGH XEROFORM TO DO OTHER WOUNDS.
--- NOTE | 2021-03-26 15:33 | NUR ---
CALLED RESPIRATORY TO DEEP SUCTION PATIENT. SPOKE WITH MATT.
[2021-03-26 16:00] VITALS: BP 155/85
[2021-03-26] MEDS: FUROSEMIDE 40 MG/4 ML VIAL IVP SCH (17:15)
--- NOTE | 2021-03-26 17:20 | NUR ---
REVIEWED WITH DR. BERYL MCLEAN PATIENT PULMONARY STATUS, HHN THERAPY FREQUENCY AND RESPIRATORY DRUG VORBO: HHN Q6 DUONEB; KEEP OXYGEN SATURATIONS GREATER THAN 90%
[2021-03-26] MEDS ORDERED: ALBUTEROL SULFATE/IPRATROPIU 3 ML SOL IH PRN (17:30)
--- NOTE | 2021-03-26 18:11 | NUR ---
CHANGED COLOSTOMY BAG. AREA INTACT, CLEANED AND DRIED BEFORE PLACING NEW BAG.
--- NOTE | 2021-03-26 18:39 | NUR ---
PT RESTING SUPINE IN BED ALERT BUT UNABLE TO OBTAIN ORIENTATION. NO VISIBLE S/S OF DISTRESS, DISCOMFORT, OR PAIN. RT DEEP SX PT. HELPED FEED PT HIS DINNER. ASPIRATION PRECAUTIONS MAINTAINED. O2 MASK WITH 5L/MIN PLACED BACK ON AFTER FEEDING. CALL LIGHT WITHIN REACH. ALL NEEDS MET AT THIS TIME. WILL ENDORSE TO NOC SHIFT.
--- NOTE | 2021-03-26 18:42 | NUR ---
HELP PROAMATINE 10MG. BP 114/70, HR 103.
[2021-03-26] MEDS: ALBUTEROL SULFATE/IPRATROPIU 3 ML SOL IH SCH (19:28)
[2021-03-26 20:00] VITALS: BP 151/42
[2021-03-26 22:01] LABS: BASOPHILS % (AUTO) 0.3 % (0.0-2.0); EOSINOPHILS % (AUTO) 0.2 % (0.0-4.0); HEMATOCRIT 24.5 % (36-52); HEMOGLOBIN 7.7 g/dL (12.0-18.0); LYMPHOCYTES # (AUTO) 0.7 K/uL (2.0-11.5); LYMPHOCYTES % (AUTO) 8.6 % (20.5-51.1); MEAN CORPUSCULAR HEMOGLOBIN 27 pg (27-31); MEAN CORPUSCULAR HGB CONC 31 g/dL (33-37); MEAN CORPUSCULAR VOLUME 86.8 fL (80-94); MONOCYTES # (AUTO) 0.5 K/uL (0.8-1.0); MONOCYTES % (AUTO) 5.6 % (1.7-9.3); NEUTROPHILS # (AUTO) 7.2 K/uL (1.8-7.7); NEUTROPHILS % (AUTO) 85.3 % (42.2-75.2); PLATELET COUNT (AUTO) 305 K/uL (140-450); RED BLOOD CELL COUNT(AUTO) 2.83 MIL/uL (4.20-6.10); RED CELL DISTRIBUTION WIDTH 18.7 % (11.6-13.7); WHITE BLOOD COUNT (AUTO) 8.5 K/uL (4.8-10.8)
[2021-03-27] VITALS: BP 138/77
[2021-03-27] MEDS ORDERED: WATER STERILE 10 ML MC ONE (00:16)
[2021-03-27] MEDS: ALBUTEROL SULFATE/IPRATROPIU 3 ML SOL IH SCH ×4 (00:55→21:19)
[2021-03-27] MEDS: MENTHOL/ZINC OXIDE 113 GM TUBE TP SCH ×2 (01:00→13:18)
--- NOTE | 2021-03-27 02:46 | NUR ---
PATIENT AWAKE LUNGS DIMINISH HAS FACE MASK ON 5 LITERS. HAS VERY BAD SKIN VERY DRY PEELING PATIENT SINUS PATIENT IS A DNR. HAS RIGHT FEMEROL TRIPLE LUMEN PATIENT HAS F/C AND COLOSTOMY NO DISTRESS NOTED.
[2021-03-27 04:00] VITALS: BP 131/74
[2021-03-27] MEDS: PIPERACILLIN/TAZOBACTAM 3.375 GM in DEXTROSE 5% 50 ML IV SCH ×3 (05:00→20:39)
[2021-03-27] MEDS: HYDROCORTISONE NA SUCC 100 MG/2 ML VIAL IV SCH ×3 (05:00→20:55)
[2021-03-27] MEDS: LEVOTHYROXINE 0.025 MG TAB PO SCH (06:21)
[2021-03-27] MEDS: MIDODRINE 5 MG TAB PO SCH ×3 (06:50→18:40)
[2021-03-27] MEDS: BUDESONIDE 0.5 MG/2 ML NEBU INH SCH ×2 (07:28→21:19)
[2021-03-27 07:32] LABS: PHOSPHORUS 3.4 mg/dL (2.5-4.9)
[2021-03-27 08:20] LABS: ALBUMIN 2.4 g/dL (3.4-5.0); ANION GAP 9.9 (8-16); ASPARTATE AMINOTRANSFERASE 47 U/L (15-37); CARBON DIOXIDE 33.6 mmol/L (21-32); CHLORIDE 115 mmol/L (98-107); CREATININE 1.9 mg/dL (0.6-1.3); GLUCOSE 68 mg/dL (74-106); TOTAL BILIRUBIN 0.5 mg/dL (0.0-1.0); UREA NITROGEN, BLOOD 54 mg/dL (7-18)
[2021-03-27 08:43] LABS: SODIUM SERUM 156 mmol/L (136-145)
[2021-03-27 08:44] VITALS: BP 131/74
[2021-03-27 08:45] LABS: POTASSIUM 2.5 mmol/L (3.5-5.1)
[2021-03-27] MEDS: FUROSEMIDE 40 MG/4 ML VIAL IVP SCH ×2 (09:25→16:51)
[2021-03-27] MEDS: TAMSULOSIN 0.4 MG CAP PO SCH (09:26)
[2021-03-27] MEDS: MONTELUKAST SODIUM 10 MG TAB PO SCH (09:26)
[2021-03-27] MEDS: MULTIVITAMIN/MINERALS 1 TAB PO SCH (09:26)
[2021-03-27] MEDS: DILTIAZEM 120 MG CAPER PO SCH (09:26)
[2021-03-27] MEDS ORDERED: POTASSIUM CHLORIDE 10 MEQ TABER PO SCH ×2 (11:00→18:00)
[2021-03-27] MEDS ORDERED: KCL 20 MEQ/WATER INJ PREMIX 200 ML IV SCH (11:00)
[2021-03-27 12:00] VITALS: BP 131/70
--- NOTE | 2021-03-27 12:15 | NUR ---
MD AWARE OF PT'S CRITICAL VALUES, NEW ORDERS WERE PLACED TO REPLENISH POTASSIUM., PT REMAINS ON FACE MASK DUE TO DESATTING ON 2LNC. PT PENDING REPEAT BMP AFTER POTASSIUM INFUSION IS FINISHED.
[2021-03-27] MEDS: GAUZE TP SCH (13:18)
[2021-03-27 16:03] VITALS: BP 144/92
[2021-03-27 16:54] LABS: ANION GAP 8.8 (8-16); CHLORIDE 113 mmol/L (98-107); CREATININE 1.9 mg/dL (0.6-1.3); GLUCOSE 128 mg/dL (74-106); SODIUM SERUM 154 mmol/L (136-145); UREA NITROGEN, BLOOD 50 mg/dL (7-18)
[2021-03-27 16:58] LABS: POTASSIUM 2.8 mmol/L (3.5-5.1)
--- NOTE | 2021-03-27 17:24 | NUR ---
INFORMED PRIMARY MD AND LINE PATROLLER, OF PT'S POTASSIUM LVL. WAITING FOR RESPONSE.
[2021-03-27] MEDS: KCL 20 MEQ/WATER INJ PREMIX 100 ML IV SCH ×2 (18:31→20:26)
--- NOTE | 2021-03-27 18:44 | NUR ---
DR. SEAMAN AWARE OF PT'S POTASSIUM/MAGNESIUM LVLS. NEW ORDERS PLACED TO REPLENISH BOTH. ALSO INFORMED TO HOLD LASIX UNTIL POTASSUM RETURNS TO NORMAL LVL. WILL ENDORSE TO RING MAKER RN.
--- NOTE | 2021-03-27 19:37 | NUR ---
ENDORSED CARE TO ACCOUNTS PAYABLE BOOKKEEPER RN.
[2021-03-27 20:00] VITALS: BP 113/67
[2021-03-27] MEDS ORDERED: MAG SULF 2000 MG/WATER PREMIX 50 ML IV SCH (20:00)
[2021-03-28] VITALS: BP 122/72
[2021-03-28 00:22] LABS: ANION GAP 7.3 (8-16); CARBON DIOXIDE 35.9 mmol/L (21-32); CHLORIDE 116 mmol/L (98-107); CREATININE 1.8 mg/dL (0.6-1.3); GLUCOSE 141 mg/dL (74-106); POTASSIUM 4.2 mmol/L (3.5-5.1); SODIUM SERUM 155 mmol/L (136-145); UREA NITROGEN, BLOOD 51 mg/dL (7-18)
[2021-03-28] MEDS: ALBUTEROL SULFATE/IPRATROPIU 3 ML SOL IH SCH ×4 (01:00→13:40)
[2021-03-28] MEDS: MENTHOL/ZINC OXIDE 113 GM TUBE TP SCH ×2 (01:07→13:54)
[2021-03-28 04:00] VITALS: BP 132/92
[2021-03-28] MEDS: PIPERACILLIN/TAZOBACTAM 3.375 GM in DEXTROSE 5% 50 ML IV SCH ×3 (04:43→21:43)
[2021-03-28] MEDS: HYDROCORTISONE NA SUCC 100 MG/2 ML VIAL IV SCH ×3 (04:48→21:28)
--- NOTE | 2021-03-28 07:30 | NUR ---
RECEIVED REPORT FROM PM SHIFT RN FOR CONTINUITY OF CARE. PT. ALERT,ORIENTED X1. ON SIMPLE MASK O2 5L. WITH SPO2 100%. NO DISTRESS NOTED. ALL SAFETY MEASURES IN PLACE. WILL CONTINUE TO MONITOR THE PT.
[2021-03-28] MEDS: BUDESONIDE 0.5 MG/2 ML NEBU INH SCH (07:55)
[2021-03-28 08:00] VITALS: BP 116/88
[2021-03-28] MEDS: MULTIVITAMIN/MINERALS 1 TAB PO SCH (08:49)
[2021-03-28] MEDS: DILTIAZEM 120 MG CAPER PO SCH (08:49)
[2021-03-28] MEDS: MONTELUKAST SODIUM 10 MG TAB PO SCH (08:49)
[2021-03-28] MEDS: TAMSULOSIN 0.4 MG CAP PO SCH (08:50)
[2021-03-28] MEDS: LEVOTHYROXINE 0.025 MG TAB PO SCH (08:57)
[2021-03-28] MEDS: FUROSEMIDE 20 MG/2 ML VIAL IVP SCH ×2 (08:58→17:52)
--- NOTE | 2021-03-28 10:00 | NUR ---
PT. RESTING IN THE BED. CONTINUE WITH MASK O2 . . ADMINISTERED MEDICATION DUE. PT. TOLERATED WELL. SAFETY MEASURES IN PLACE. WILL CONTINUE TO MONITOR THE PT.
[2021-03-28 12:00] VITALS: BP 139/81
[2021-03-28] MEDS: MIDODRINE 5 MG TAB PO SCH ×2 (13:00→19:00)
[2021-03-28] MEDS: GAUZE TP SCH (13:54)
--- NOTE | 2021-03-28 14:00 | NUR ---
PT. RESTING IN THE BED. WITH NO S/S OF DISTRESS NOTED. ALL SAFETY MEASURES IN PLACE. WILL CONTINUE TO MONITOR THE PT.
--- NOTE | 2021-03-28 14:51 | NUR ---
03/28/21 RD FOLLOW UP COMPLETED PLEASE REFER TO NUTRITION ASSESSMENT UNDER CARE ACTIVITY FOR ESTIMATED NUTRITIONAL NEEDS. 1. CONTINUE RENAL, PUREE DIET TOLERATED 2. MONITOR WEIGHT CHANGES AND FLUID OVERLOAD 3. RD TO FOLLOW-UP 3-5 DAYS, MODERATE RISK KARL ROMERO, RD
[2021-03-28 16:00] VITALS: BP 136/81
--- NOTE | 2021-03-28 16:40 | NUR ---
MADE ROUND. PT. LYING IN THE BED. WITH NO S/S OF DISTRESS NOTED. ALL SAFETY MEASURES IN PLACE. WILL CONTINUE TO MONITOR THE PT.
--- NOTE | 2021-03-28 19:28 | NUR ---
ENDORSED REPORT TO PM SHIFT KATHERIN HOROWITZ FOR CONTINUITY OF CARE. PT. STABLE
[2021-03-28 20:00] VITALS: BP 136/78
[2021-03-29] VITALS: BP 125/72
--- NOTE | 2021-03-29 | NUR ---
ROUNDS , O2 SAT WNL . WILL CONT. TO MONITOR .
[2021-03-29] MEDS: MENTHOL/ZINC OXIDE 113 GM TUBE TP SCH ×2 (01:00→12:26)
--- NOTE | 2021-03-29 02:00 | NUR ---
AWAKEABLE , ON O2 AT 5LPM / MASK - OS SAT WNL . WILL CONT. TO MONITOR .
[2021-03-29 04:00] VITALS: BP 122/76
[2021-03-29] MEDS: PIPERACILLIN/TAZOBACTAM 3.375 GM in DEXTROSE 5% 50 ML IV SCH ×2 (04:55→12:15)
[2021-03-29] MEDS: HYDROCORTISONE NA SUCC 100 MG/2 ML VIAL IV SCH ×3 (06:00→21:53)
--- NOTE | 2021-03-29 06:00 | NUR ---
OS SAT 92 % - DNR , WILL CONT TO MONITOR .
[2021-03-29] MEDS: LEVOTHYROXINE 0.025 MG TAB PO SCH (06:08)
--- NOTE | 2021-03-29 07:30 | NUR ---
ENDORSED - PT - FOR CONT. OF CARE .O2 SAT WNL .
--- NOTE | 2021-03-29 07:32 | NUR ---
RECEIVED REPORT FROM GAS SYSTEM OPERATOR RN FOR CONTINUITY OF CARE. PT IN THE BED, HOB ELEVATED. AAOX2. PERRLA. ON 5L SIMPLE MASK. AFIB ON THE MONITOR. PUREE DIET. COLOSTOMY IN PLACE. R FEMORAL TLC CENTRAL LINE IN PLACE. INTACT AND PATENT. NICOLE IN PLACE DRAINING TO GRAVITY. SKIN NOT INTACT, SEE WOUND ASSESSMENT. CALL LIGHT WITHIN REACH. SAFETY PRECAUTIONS MET. STANDARD PRECAUTIONS IN PLACE. WILL CONTINUE TO MONITOR.
[2021-03-29 08:00] VITALS: BP 109/73
[2021-03-29] MEDS: BUDESONIDE 0.5 MG/2 ML NEBU INH SCH ×2 (08:05→20:52)
[2021-03-29] MEDS: ALBUTEROL SULFATE/IPRATROPIU 3 ML SOL IH SCH ×3 (08:05→20:52)
[2021-03-29 08:08] LABS: ALBUMIN 2.3 g/dL (3.4-5.0); ANION GAP 8.5 (8-16); ASPARTATE AMINOTRANSFERASE 33 U/L (15-37); CARBON DIOXIDE 36.8 mmol/L (21-32); CHLORIDE 118 mmol/L (98-107); CREATININE 1.7 mg/dL (0.6-1.3); GLUCOSE 108 mg/dL (74-106); MAGNESIUM 2.2 mg/dL (1.8-2.4); PHOSPHORUS 4.2 mg/dL (2.5-4.9); POTASSIUM 3.3 mmol/L (3.5-5.1); TOTAL BILIRUBIN 0.5 mg/dL (0.0-1.0); UREA NITROGEN, BLOOD 50 mg/dL (7-18)
[2021-03-29 08:16] LABS: BASOPHILS % (AUTO) 0.2 % (0.0-2.0); EOSINOPHILS % (AUTO) 0.1 % (0.0-4.0); HEMATOCRIT 23.9 % (36-52); HEMOGLOBIN 7.5 g/dL (12.0-18.0); LYMPHOCYTES # (AUTO) 0.5 K/uL (2.0-11.5); LYMPHOCYTES % (AUTO) 5.4 % (20.5-51.1); MEAN CORPUSCULAR HEMOGLOBIN 28 pg (27-31); MEAN CORPUSCULAR HGB CONC 31 g/dL (33-37); MEAN CORPUSCULAR VOLUME 88.5 fL (80-94); MONOCYTES # (AUTO) 0.2 K/uL (0.8-1.0); MONOCYTES % (AUTO) 2.6 % (1.7-9.3); NEUTROPHILS # (AUTO) 8.2 K/uL (1.8-7.7); NEUTROPHILS % (AUTO) 91.7 % (42.2-75.2); PLATELET COUNT (AUTO) 260 K/uL (140-450); RED BLOOD CELL COUNT(AUTO) 2.69 MIL/uL (4.20-6.10)
[2021-03-29 08:40] LABS: SODIUM SERUM 160 mmol/L (136-145)
[2021-03-29] MEDS: TAMSULOSIN 0.4 MG CAP PO SCH ×2 (09:00→09:23)
[2021-03-29] MEDS: MONTELUKAST SODIUM 10 MG TAB PO SCH ×2 (09:00→09:23)
[2021-03-29] MEDS: MULTIVITAMIN/MINERALS 1 TAB PO SCH ×2 (09:00→09:23)
[2021-03-29] MEDS: DILTIAZEM 120 MG CAPER PO SCH ×2 (09:00→09:23)
[2021-03-29] MEDS: FUROSEMIDE 20 MG/2 ML VIAL IVP SCH ×2 (09:22→17:38)
[2021-03-29] MEDS: MIDODRINE 5 MG TAB PO SCH ×3 (09:22→19:00)
[2021-03-29] MEDS: DEXTROSE 5% 1,000 ML IV SCH (09:23)
--- NOTE | 2021-03-29 09:37 | NUR ---
UNABLE TO ADMINISTER SCHEDULED PO MEDS. PT WAS NOT ABLE TO SWALLOW MEDS. NOTIFIED MD REGARDING SITUATION.
--- NOTE | 2021-03-29 09:45 | NUR ---
WOUND CARE RE-EVALUATION NOTE: SKIN ASSESSMENT DONE WITH PRIMARY RN, PT. REMAIN LETHARGY, ON NC WITH LABOR BREATHING, NOTICE, PER PRIMARY RN, FAMILY DECIDED DNR. WILL CONTINUE SAME TX. -CELLULITIS TO TRUNK OF BODY AND ALL LIMBS, ERYTHEMA IMPROVED NO WEEPING SKIN, MULTIPLE PARTIAL THICKNESS SKIN LOSS FROM DENUDED BLISTERING SKIN ,WOUND BED S CLEAN NO S/S OF INFECTION -SACRALCOCCYX AND BUTTOCKS SEVERE MOISTURE ASSOCIATED DERMATITIS SKIN EROSIONS IMPROVING -LEFT LATERAL LEG FULL THICKNESS SKIN LOSS 2X1X0.3CM, WOUND BED RED, MOIST NO ODOR, JOSEPH-WOUND SKIN ERYTHEMA IMPROVING, NO WEEPING SKIN -BLE MULTIPLE BROWN SCABS, JOSEPH-WOUND SKIN RED AND DRY -RIGHT HEEL UN-STAGEABLE DRY BROWN SCAB 3X2CM -LEFT HEEL UN-STAGEABLE DRY BROWN SCAB 3X3CM
[2021-03-29] MEDS ORDERED: VANCOMYCIN 750 MG in DEXTROSE 5% 250 ML IV SCH (10:00)
--- NOTE | 2021-03-29 11:55 | NUR ---
DR. SEAMAN AT PATIENT'S BEDSIDE.
[2021-03-29 12:00] VITALS: BP 128/74
[2021-03-29] MEDS ORDERED: KCL 20 MEQ/WATER INJ PREMIX 200 ML IV SCH (12:00)
[2021-03-29] MEDS: GAUZE TP SCH (12:26)
--- NOTE | 2021-03-29 13:04 | NUR ---
ALL SCHEDULED MEDS GIVEN. PT IS STABLE. NO DISTRESS NOTED. WILL CONTINUE TO MONITOR.
--- NOTE | 2021-03-29 15:45 | NUR ---
CHECKED ON PT. PT IS STABLE. NO DISTRESS NOTED. WILL CONTINUE TO MONITOR.
[2021-03-29 16:00] VITALS: BP 138/71
--- NOTE | 2021-03-29 19:35 | NUR ---
ENDORSED TO DRAFTER DETAIL NURSE FOR CONTINUITY OF CARE. PT IS STABLE.
[2021-03-29 20:00] VITALS: BP 130/70
--- NOTE | 2021-03-29 20:00 | NUR ---
Received bedside report from day Rn regarding the patient for continuity of care. Received patient laying in bed with labored breathing and on high flow O2, 30L and FIO2-100% sating 95% to 100%. VSS, Afebrile, sating 95%. Uncontrolled A-fib on lead software tester, HR-129. IVF infusing as ordered. Augustin catheter draining yellow urine with blood tinged no clots noted. Colostomy bag in placed, noted yellow and blackish stool. Side rails up x3, bed in low and lock position. Call light within reach. Will continue POC and monitoring.
--- NOTE | 2021-03-29 22:00 | NUR ---
Patient still lethargic and opens eyes off and on but non verbal. Sating 96% on high flow O2 with FIO2 100%. will continue to monitor patient.
[2021-03-30] VITALS: BP 113/81
--- NOTE | 2021-03-30 | NUR ---
Patient vital stable, afebrile, sating 100% on high flow O2, FIO2 100%. Uncontrolled afib on power plant operator, HR -132. Call light within reach. Will continue to monitor patient.
[2021-03-30] MEDS: MENTHOL/ZINC OXIDE 113 GM TUBE TP SCH ×2 (00:38→12:24)
[2021-03-30] MEDS: ALBUTEROL SULFATE/IPRATROPIU 3 ML SOL IH SCH ×3 (01:00→13:48)
--- NOTE | 2021-03-30 01:49 | NUR ---
RECEIVED REPORT FROM RELIEVING NURSE DUE TO CHANGE OF ASSIGNMENT. HE IS IN BED AOX1 VERY LETHARGIC AND ON HI FLOW 30 LITERS HI FLOW AT 100%. PT AGONAL IRREGULAR AND SHALLOW BREATHING PT HAS TRIPLE LUMEN CENTRAL LINE INTACT AND RUNNING D5 AT 50MLS/HR. HE HAS A COLOSTOMY BAG WHICH WAS EMPTIED ABOUT 300 SOFT BROWN AND BLACK STOOL. PT HAS NICOLE CATHETER DRAINING CLOUDY YELLOW URINE. PT IS A DNR ALL ORDERED PRECAUTIONS IN PLACE.
--- NOTE | 2021-03-30 01:57 | NUR ---
ENDORSED PATIENT TO KATHERIN DOMINGUEZ AND KATHERIN TAYLOR FOR CONTINUITY OF CARE. PATIENT STABLE. SIGNING OFF.
--- NOTE | 2021-03-30 03:15 | NUR ---
RIGHT EYE SLUGGISH BUT REACTIVE TO LIGHT LEFT EYE IS BRISK AND REACTIVE TO LIGHT. PT EYES LOOK SOMEWHAT GLAZED OVER. HE CONTINUES ON HI FLOW N/C, HIS BREATHING IS LABORED AND SHALLOW OPEN MOUTH BREATHING.LUNG SOUNDS COARSE CRACKLES RATE IS 20. WILL CONTINUE TO MONITOR. ALL ORDERED PRECAUTIONS IN PLACE.
[2021-03-30 04:00] VITALS: BP 107/68
[2021-03-30] MEDS: DILTIAZEM 25 MG/5 ML VIAL IVP PRN ×2 (04:53→12:26)
[2021-03-30] MEDS: HYDROCORTISONE NA SUCC 100 MG/2 ML VIAL IV SCH ×2 (05:00→13:14)
--- NOTE | 2021-03-30 05:00 | NUR ---
PT HEART RATE WENT UP TO 158, PT GIVEN IVP CARDIZEM. PT TURNED AND REPOSITIONED ORAL AND SKIN AND CATHETER CARE PROVIDED. WILL REASSESS B/P AND HEART RATE LATER.
[2021-03-30] MEDS: DEXTROSE 5% 1,000 ML IV SCH ×2 (05:15→18:56)
[2021-03-30] MEDS: LEVOTHYROXINE 0.025 MG TAB PO SCH (06:30)
--- NOTE | 2021-03-30 06:30 | NUR ---
REASSESSMENT OF B/P OS 96/71 HEART RATE IS 88. PT BREATHING IS SHALLOW AND HE REMAINS ON HI FLOW AT 30L 100%. PORT UNABLE TO SWALLOW ORAL PILLS AT THIS TIME. ORAL CARE PROVIDED. ALL ORDERED PRECAUTIONS IN PLACE.
[2021-03-30] MEDS: MIDODRINE 5 MG TAB PO SCH ×3 (07:00→19:00)
--- NOTE | 2021-03-30 07:32 | NUR ---
RECEIVED REPORT FROM SHEARER PRINTED CIRCUIT BOARDS RN FOR CONTINUITY OF CARE. PT IN THE BED, HOB ELEVATED. AAOX2. PERRLA. ON HI FLOW 30 L WITH FIO2 AT 100%. AFIB ON THE MONITOR. PUREE DIET. COLOSTOMY IN PLACE. R FEMORAL TLC CENTRAL LINE IN PLACE. INTACT AND PATENT. NICOLE IN PLACE DRAINING TO GRAVITY. SKIN NOT INTACT, SEE WOUND ASSESSMENT. CALL LIGHT WITHIN REACH. SAFETY PRECAUTIONS MET. STANDARD PRECAUTIONS IN PLACE. WILL CONTINUE TO MONITOR.
[2021-03-30] MEDS: BUDESONIDE 0.5 MG/2 ML NEBU INH SCH (07:45)
--- NOTE | 2021-03-30 07:45 | NUR ---
USING STERILE TECHNIQUE APPLIED STERILE LUBRICANT TO THE DISTAL END OF A 14FR SUCTION CATHETER INSERTED INTO RIGHT AND LEFT NASAL SEPTUM NASOTRACHEAL (NTS) SUCTION FOR COPIOUS THICK YELLOW SECRETIONS SUPPLEMENTAL OXYGEN APPLIED THROUGHOUT PROCEDURE TOLERATED WELL WITHOUT COMPLICATIONS NOTED
[2021-03-30 08:00] VITALS: BP 101/57
[2021-03-30] MEDS: FUROSEMIDE 20 MG/2 ML VIAL IVP SCH (08:23)
[2021-03-30] MEDS: DILTIAZEM 120 MG CAPER PO SCH (08:24)
[2021-03-30] MEDS: MULTIVITAMIN/MINERALS 1 TAB PO SCH (08:24)
[2021-03-30] MEDS: TAMSULOSIN 0.4 MG CAP PO SCH (08:24)
[2021-03-30] MEDS: MONTELUKAST SODIUM 10 MG TAB PO SCH (08:24)
--- NOTE | 2021-03-30 09:55 | NUR ---
ALL SCHEDULED MEDS GIVEN. PT IS STABLE. NO DISTRESS NOTED. WILL CONTINUE TO MONITOR. Addendum: 03/30/21 at 1401 by Santo Lou RN RN ALL PO SCHEDULED MEDS WERE NOT GIVEN DUE TO PATIENT POOR ABILITY TO SWALLOW.
[2021-03-30 10:43] LABS: HEMATOCRIT 30.4 % (36-52); HEMOGLOBIN 8.9 g/dL (12.0-18.0); MEAN CORPUSCULAR HEMOGLOBIN 27 pg (27-31); MEAN CORPUSCULAR HGB CONC 30 g/dL (33-37); MEAN CORPUSCULAR VOLUME 91.3 fL (80-94); PLATELET COUNT (AUTO) 244 K/uL (140-450); RED BLOOD CELL COUNT(AUTO) 3.33 MIL/uL (4.20-6.10); RED CELL DISTRIBUTION WIDTH 20.4 % (11.6-13.7)
[2021-03-30 11:01] LABS: ANION GAP 13.1 (8-16); CARBON DIOXIDE 34.2 mmol/L (21-32); CHLORIDE 118 mmol/L (98-107); CREATININE 1.8 mg/dL (0.6-1.3); GLUCOSE 59 mg/dL (74-106); POTASSIUM 4.3 mmol/L (3.5-5.1); UREA NITROGEN, BLOOD 58 mg/dL (7-18)
[2021-03-30 11:07] LABS: PHOSPHORUS 3.6 mg/dL (2.5-4.9)
[2021-03-30 11:27] LABS: SODIUM SERUM 161 mmol/L (136-145)
[2021-03-30 11:37] LABS: BASOPHILS % (MANUAL) 0 % (0-2); BLASTS, MANUAL % 0 % (0-0); EOSINOPHILS % (MANUAL) 0 % (0-4); LYMPHOCYTES % (MANUAL) 3 % (20-46); METAMYELOCYTES % 0 % (0-0); MONOCYTES % (MANUAL) 2 % (5-12); MYELOCYTES % 0 % (0-0); OTHER CELLS,MANUAL % 0 (0-0); PROMYELOCYTES % 0 % (0-0)
[2021-03-30 11:39] LABS: BUFFY COAT SMEAR PREP N
[2021-03-30 12:00] VITALS: BP 102/57
[2021-03-30] MEDS: GAUZE TP SCH (12:24)
--- NOTE | 2021-03-30 12:55 | NUR ---
DR SEAMAN AT PATIENT'S BEDSIDE
[2021-03-30] MEDS ORDERED: ALBUMIN HUMAN 25% 50 ML IV SCH (13:06)
--- NOTE | 2021-03-30 13:15 | NUR ---
ALL SCHEDULED MEDS GIVEN. PT IS STABLE. NO DISTRESS NOTED. WILL CONTINUE TO MONITOR.
--- NOTE | 2021-03-30 15:39 | NUR ---
XR TECH AT BEDSIDE
[2021-03-30 16:00] VITALS: BP 102/54
--- NOTE | 2021-03-30 19:04 | NUR ---
SCHEDULED PO MEDS WERE NOT GIVEN DUE TO PATIENT'S INABILITY TO SWALLOW. MD IS AWARE OF THIS SITUATION.
[2021-03-30 19:35] VITALS: BP 103/65
--- NOTE | 2021-03-30 19:39 | NUR ---
ENDORSED TO CHECKER NURSE FOR CONTINUITY OF CARE. PT IS STABLE
--- NOTE | 2021-03-30 19:39 | NUR ---
RECD. RESTING IN BED, LETHARGIC. ON HIGH FLOW OXYGEN, 25 LITERS, 100%. WITH AGONAL BREATHING. 02 SAT - 82. WITH COLOSTOMY BAG DRAINING BROWN LIQUID STOOLS LIQUID STOOLS, MODERATE AMOUNT. F/C PATENT DRAINING MINIMAL AMOUNT OF CLEAR YELLOW URINE. PATIENT IS DNR. NO APPEARANCE OF PAIN OR DISCOMFORT NOTED, FLACC -0. WILL CONTINUE TO MONITOR.
--- NOTE | 2021-03-30 19:40 | NUR ---
PATIENT STOPPED BREATHING, VS TAKEN, NO BP, NO PALPABLE CAROTID PULSE.
--- NOTE | 2021-03-30 19:45 | NUR ---
PATIENT WAS PRONOUNCED BY NURSE FACING GRINDER CASANDRA MORENO.
--- NOTE | 2021-03-30 20:10 | NUR ---
INFORMED FLORINA CONN ABILITY PATHWAY PROTOZOOLOGY TEACHER, BRITT CABRERA AND PATIENT BROTHER JUAN THAT PATIENT .
--- NOTE | 2021-03-30 20:25 | NUR ---
ONE LEGACY AND TIMBER SKIDDER RELEASED THE BODY (NOT A TIMBER SKIDDER'S CASE).
--- NOTE | 2021-03-30 20:45 | NUR ---
I WAS NOTIFIED BY THE NURSE THAT PATIENT AT APPROXIMATELY 19:45. PT. CURRENTLY IN BED; AWAITING FOR PATIENT TO BE TRANSPORTED OUT.
--- NOTE | 2021-03-30 23:10 | NUR ---
RELEASED THE BODY TO [facility].
[2021-03-30] MEDS ORDERED: VANCOMYCIN PER PHARMACY MC PRN (23:15)
[2021-03-30] MEDS ORDERED: VANCOMYCIN 1GM/DEXT 5% PREMIX 200 ML IV SCH (23:30)
[2021-03-31] MEDS ORDERED: MEROPENEM 500 MG in NACL 0.9% 50 ML IV SCH (09:00)
== END 2021-03-30 19:45 | DRG 871 ==
LOC: MED 17:45 → MMU 03-18 04:47 → MIC 03-20 00:21 → MTU 03-23 17:51
PROVIDERS: ADMIT Internal Medicine Cardiovascular Disease; ATTEND Internal Medicine Cardiovascular Disease
PROC: B54BZZA Ultrasonography of Right Lower Extremity Veins, Guidance (ICD-10-PCS; principal; 2021-03-18)
PROC: 06HY33Z Insertion of Infusion Device into Lower Vein, Percutaneous Approach (ICD-10-PCS; 2021-03-18)
DX: A41.01 Sepsis due to Methicillin susceptible Staphylococcus aureus (principal); J96.00 Acute respiratory failure, unspecified whether with hypoxia or hypercapnia; E43 Unspecified severe protein-calorie malnutrition; A48.3 Toxic shock syndrome; J69.0 Pneumonitis due to inhalation of food and vomit; N17.0 Acute kidney failure with tubular necrosis; R65.21 Severe sepsis with septic shock; E87.0 Hyperosmolality and hypernatremia; N39.0 Urinary tract infection, site not specified; I50.22 Chronic systolic (congestive) heart failure; I13.0 Hypertensive heart and chronic kidney disease with heart failure and stage 1 through stage 4 chronic kidney disease, or unspecified chronic kidney disease; J44.0 Chronic obstructive pulmonary disease with (acute) lower respiratory infection; L03.119 Cellulitis of unspecified part of limb; J44.1 Chronic obstructive pulmonary disease with (acute) exacerbation; Z66 Do not resuscitate; E87.5 Hyperkalemia; D64.9 Anemia, unspecified; D75.839 Thrombocytosis, unspecified; E03.9 Hypothyroidism, unspecified; E11.22 Type 2 diabetes mellitus with diabetic chronic kidney disease; E11.65 Type 2 diabetes mellitus with hyperglycemia; E78.5 Hyperlipidemia, unspecified; E83.39 Other disorders of phosphorus metabolism; E83.42 Hypomagnesemia; E83.51 Hypocalcemia; E87.6 Hypokalemia; E88.09 Other disorders of plasma-protein metabolism, not elsewhere classified; F79 Unspecified intellectual disabilities; I25.10 Atherosclerotic heart disease of native coronary artery without angina pectoris; I48.0 Paroxysmal atrial fibrillation; R74.01 Elevation of levels of liver transaminase levels; I49.3 Ventricular premature depolarization; E86.0 Dehydration; K80.20 Calculus of gallbladder without cholecystitis without obstruction; R62.7 Adult failure to thrive; N18.9 Chronic kidney disease, unspecified; N28.1 Cyst of kidney, acquired; Z20.822 Contact with and (suspected) exposure to COVID-19; Z79.01 Long term (current) use of anticoagulants; Z86.14 Personal history of Methicillin resistant Staphylococcus aureus infection; Z86.718 Personal history of other venous thrombosis and embolism; Z93.3 Colostomy status; Z68.22 Body mass index [BMI] 22.0-22.9, adult; Z79.2 Long term (current) use of antibiotics; Z79.899 Other long term (current) drug therapy
CPT/HCPCS: 36415; 36600; 70450; 71045; 76770; 80048; 80053; 80202; 81001; 82550; 82553; 83605; 83735; 83874; 83880; 84100; 84484; 85025; 85610; 85651; 85730; 86140; 87040; 87081; 87086; 93005; 94640; 96365; 96366; 96367; 96375; 99291; J0610; J1720; J1815; J1940; J2001; J2185; J2543; J3370; J3475; J3480; J3490; J7060; J7613; J7626; P9046; Q0092